=== PATIENT | male | born 1970 ===

== ENCOUNTER 2018-02-16 09:58 | Inpatient (IN) | payer OTHER ==
[2018-02-16] MEDS ORDERED: Sodium Chloride 0.9% 1,000 ML IV ONE (10:33)
[2018-02-16 11:01] LABS: BASO % 0.1 % (0.0-2.0); EOS # 0.2 K/uL (0.0-0.7); EOS % 1.3 % (0.0-4.0); HEMOGLOBIN 16.7 g/dL (12.0-18.0); LYMPH # 0.7 K/uL (1.0-4.3); LYMPH % 4.7 % (20.0-40.0); MEAN CELL VOLUME 87.7 fL (80.0-94.0); MEAN CORPUSCULAR HEMOGLOBIN 29.4 pg (27.0-31.0); MEAN CORPUSCULAR HGB CONC 33.5 g/dL (33.0-37.0); MEAN PLATELET VOLUME 7.5 fL (7.2-11.7); MONO # 1.1 K/uL (0.0-0.8); NEUT # 12.2 K/uL (1.8-7.0); NEUT % 85.9 % (50.0-75.0); PLATELET COUNT 353 K/uL (130-400); RBC 5.68 Mil/uL (4.40-5.90); RED CELL DISTRIBUTION WIDTH 13.7 % (11.5-14.5); WHITE BLOOD COUNT 14.3 K/uL (4.8-10.8)
[2018-02-16] MEDS ORDERED: Sodium Chloride 0.9% 1,000 ML ONE ×2 (11:03→17:23)
[2018-02-16] MEDS ORDERED: Iohexol 240 (50 ml) PO ONE (11:12)
[2018-02-16 11:13] LABS: INR 1.1; PROTHROMBIN TIME 11.5 SECONDS (9.7-12.2)
[2018-02-16 11:17] LABS: SQUAMOUS EPITHIAL 1 /hpf (0-5); URINE BACTERIA RARE (<OCC); URINE BILIRUBIN NEGATIVE (NEGATIVE); URINE BLOOD NEGATIVE (NEGATIVE); URINE CLARITY Hazy (Clear); URINE COLOR Amber (YELLOW); URINE GLUCOSE (UA) NORMAL (Normal); URINE LEUKOCYTE ESTERASE NEG Leu/uL (Negative); URINE PROTEIN NEGATIVE (NEGATIVE); URINE UROBILINOGEN NORMAL mg/dL (0.2-1.0)
--- NOTE | 2018-02-16 11:18 | C.PDOC ---
History Of Present Illness 47 year old male with a Hx of meckels diverticulum s/p multiple surgeries, last one in 2004, presents to the ER for evaluation of epigastric and RUQ pain for the past 3 days, associated with nausea and a few episodes of nonbilious/ nonbloody vomiting. Patient admits , similar symptoms in the past but states it usually resolves itself. Patient notes the pain subsided significantly this morning but still has nausea. Otherwise , pt denies fever, chills, recent antibiotic use, cough, CP, SOB, dyspnea, hematemesis, diarrhea, melena, hematoschezia, UTI symptoms. Ambulate to ED, not in any apparent distress. Time Seen by Provider: 02/16/18 10:08 Chief Complaint (Nursing): Abdominal Pain History Per: Patient History/Exam Limitations: no limitations Onset/Duration Of Symptoms: Days Current Symptoms Are (Timing): Still Present Location Of Pain/Discomfort: RUQ, Epigastric Radiation Of Pain To:: None Quality Of Discomfort: Unable To Describe Associated Symptoms: Nausea, Vomiting. denies: Fever, Chills, Urinary Symptoms Exacerbating Factors: None Alleviating Factors: None Recent travel outside of the [place]: No Past Medical History Reviewed: Historical Data, Nursing Documentation, Vital Signs Vital Signs: Last Vital Signs Temp 98.7 F 02/16/18 17:16 Pulse 97 H 02/16/18 17:16 Resp 18 02/16/18 17:16 BP 110/76 02/16/18 17:16 Pulse Ox 99 02/16/18 17:16 - Medical History PMH: HTN, Hypercholesterolemia Other PMH: Meckels Diverticulum Family History: States: No Known Family Hx - Social History Hx Alcohol Use: Yes Hx Substance Use: No - Immunization History Hx Tetanus Toxoid Vaccination: No Hx Influenza Vaccination: No Hx Pneumococcal Vaccination: No Review Of Systems Except As Marked, All Systems Reviewed And Found Negative. Constitutional: Negative for: Fever, Chills Eyes: Negative for: Vision Change ENT: Negative for: Throat Pain Cardiovascular: Negative for: Chest Pain, Palpitations Respiratory: Negative for: Cough, Shortness of Breath Gastrointestinal: Positive for: Nausea, Vomiting, Abdominal Pain Genitourinary: Negative for: Dysuria, Frequency, Hematuria Musculoskeletal: Negative for: Neck Pain, Back Pain Skin: Negative for: Rash Neurological: Negative for: Altered Mental Status, Dizziness Physical Exam - Physical Exam Appears: Well, Non-toxic Skin: Normal Color, Warm, Dry Head: Normacephalic Eye(s): bilateral: Normal Inspection Nose: No Flaring, No Discharge Oral Mucosa: Moist Tongue: Normal Appearing Lips: Normal Appearing Throat: No Erythema, No Drooling Cardiovascular: Rhythm Regular (tachy), No Murmur, No JVD Respiratory: No Accessory Muscle Use, No Rales, No Rhonchi, No Stridor, No Wheezing Gastrointestinal/Abdominal: Soft, Tenderness (Mild epigastric/RUQ), No Distention, No Guarding, No Rebound Back: No CVA Tenderness Extremity: Normal ROM, No Pedal Edema, No Swelling Neurological/Psych: Oriented x3, Normal Speech ED Course And Treatment - Laboratory Results Result Diagrams: 02/16/18 10:56 02/16/18 10:56 Lab Interpretation: Abnormal O2 Sat by Pulse Oximetry: 98 (Room air) Pulse Ox Interpretation: Normal - CT Scan/US CT abd/pelvis Other Rad Studies (CT/US): Radiology Report Reviewed CT/US Interpretation: IMPRESSION: Findings most likely represent small-bowel enteritis. Clinical correlation recommended. No evidence of acute mechanical bowel obstruction. Diverticulosis without radiographic evidence of acute diverticulitis. There appears to be a very small amount of of free fluid and infiltration changes within the pelvic mesentery. Multiple small to medium- sized lymph nodes seen in the upper abdomen as well as scattered throughout the mesentery. Rule out mesenteric adenitis. Moderate fatty hepatic infiltration. Probable hyperdense renal cyst. Renal ultrasound followup could confirm and exclude any solid components. Progress Note: CT abd/pel, blood work, and urinalysis ordered. Pepcid, toradol, zofran, and IV fluids administered. AFter blood work review, acute leukocytosis with bandemia recognized, pt remained tachy but afebrile. lactid acid 4.8. Code sepsis called. CT abd/pelvis review without significant abnormalities. Case dicussed with ED attending and admission arranged. Results review and discussed with pt, admisison recommend, pt agrees. Case discussed with and admission arranged. Critical Care Time - Critical Care Note Total Time (in mins): 40 Documented critical care: time excludes all time spent performing seperately billable procedures. Disposition - Disposition Disposition: HOSPITALIZED Disposition Time: 14:02 Condition: STABLE - Clinical Impression Clinical Impression: Enteritis, Bandemia, Meckel diverticulum, Sepsis - PA / LOANS OFFICER / Resident Statement MD/DO has reviewed & agrees with the documentation as recorded. - Scribe Statement The provider has reviewed the documentation as recorded by the Scribe Rashaun Benitez All medical record entries made by the Jesseniaibgenesis were at my direction and personally dictated by me. I have reviewed the chart and agree that the record accurately reflects my personal performance of the history, physical exam, medical decision making, and the department course for this patient. I have also personally directed, reviewed, and agree with the discharge instructions and disposition.
[2018-02-16] MEDS ORDERED: Iohexol 240 (50 ml) ONE (11:22)
[2018-02-16 11:24] LABS: ALB/GLOB RATIO 1.5 (1.0-2.1); ALBUMIN 4.8 g/dL (3.5-5.0); ALT/SGPT 48 U/L (21-72); AST/SGOT 33 U/L (17-59); BLOOD UREA NITROGEN 26 mg/dL (9-20); CALCIUM 9.9 mg/dl (8.6-10.4); GFR NON-AFRICAN AMERICAN > 60; LIPASE 55 U/L (23-300)
[2018-02-16 11:27] LABS: BANDS 25 % (0-2); LYMPHOCYTE 10 % (20-40); MONOCYTE 12 % (0-10); NEUTROPHIL 53 % (50-75); PLATELET ESTIMATE NORMAL (NORMAL); TOTAL CELLS COUNTED 100
[2018-02-16] MEDS ORDERED: Iodixanol 320 MG/ML 100 ML BOTTLE IV ONE (12:44)
--- NOTE | 2018-02-16 14:21 | CT ---
Date of service: 02/16/2018 PROCEDURE: CT Abdomen and Pelvis with contrast HISTORY: Vomiting with abdominal pain. History of Meckel's diverticulum COMPARISON: No prior study available comparison TECHNIQUE: Contrast dose: 100 cc Visipaque 320 Radiation dose: Total exam DLP = 335.42 mGy-cm. This CT exam was performed using one or more of the following dose reduction techniques: Automated exposure control, adjustment of the mA and/or kV according to patient size, and/or use of iterative reconstruction technique. FINDINGS: LOWER THORAX: Mild passive/dependent type atelectasis seen right posterior sulcus. There may be some minimal linear scarring change in the left lung base. No effusion or non basilar pneumothorax. Heart size within range of normal. Tiny hiatal hernia. LIVER: Liver exhibits normal size. Mild to moderate fatty hepatic infiltration. No obvious hepatic mass or collection. No gross intrahepatic biliary ductal dilatation. Portal and splenic veins opacified. What. No gross lesion or ductal dilatation. GALLBLADDER AND BILE DUCTS: No evidence of intraluminal gallbladder calculi PANCREAS: Unremarkable. No gross lesion or ductal dilatation. SPLEEN: Unremarkable. ADRENALS: No adrenal lesions KIDNEYS AND URETERS: . Kidneys demonstrate relatively symmetric nephrograms. No evidence of nephrolithiasis or hydronephrosis. There is a rounded low-attenuation lesion within the posteromedial cortex mid pole right kidney that exhibits Hounsfield units ranging from the upper teens through the low 30s. This probably represents a hyperdense cyst. Followup ultrasound could confirm and exclude any solid components. VASCULATURE: Unremarkable. No aortic aneurysm. BOWEL: The stomach is distended with oral contrast material and air. There are several on loops of minimally distended thick-walled small bowel consistent with a nonspecific enteritis. No evidence of acute mechanical small bowel obstruction with oral contrast material extending to the level of the distal descending colon. Scattered colonic diverticula are seen along the sigmoid and distal descending colon however no definitive radiographic evidence of acute diverticulitis. APPENDIX: Appendix is not seen consistent with this patient's history of appendectomy. PERITONEUM: There appears to be a very small amount of of free fluid and infiltration changes within the pelvic mesentery. Small fat containing umbilical hernia. LYMPH NODES: There are several small to medium-sized upper abdominal lymph nodes seen in the syed hepatis peripancreatic and adjacent to the celiac axis. . In addition, there are scattered small to medium-sized mesenteric lymph nodes. Rule out mesenteric adenitis. BLADDER: Urinary bladder is physiologically distended. No evidence of intraluminal urinary bladder calculi. REPRODUCTIVE: Unremarkable. BONES: No acute fracture. OTHER FINDINGS: None. IMPRESSION: Findings most likely represent small-bowel enteritis. Clinical correlation recommended. No evidence of acute mechanical bowel obstruction. Diverticulosis without radiographic evidence of acute diverticulitis. There appears to be a very small amount of of free fluid and infiltration changes within the pelvic mesentery. Multiple small to medium-sized lymph nodes seen in the upper abdomen as well as scattered throughout the mesentery. Rule out mesenteric adenitis Moderate fatty hepatic infiltration. Probable hyperdense renal cyst. Renal ultrasound followup could confirm and exclude any solid components.
[2018-02-16] MEDS ORDERED: Piperacillin/Tazobact 3.375 gm 100 ML IV STA (14:43)
[2018-02-16] MEDS ORDERED: Piperacillin/Tazobact 3.375 gm 100 ML IVPB ONE ×2 (15:27→20:39)
[2018-02-16] MEDS ORDERED: metroNIDAZOLE IV 500 mg/100 ml 500 MG/100 ML BAG ONE ×2 (15:28→21:54)
[2018-02-16] MEDS: Sodium Chloride 0.9% 1,000 ML IV SCH ×2 (16:06→17:25)
[2018-02-16] MEDS ORDERED: Dextrose 50% SYRINGE Inj (50 ml) IV PRN (17:57)
[2018-02-16] MEDS ORDERED: Glucagon Recombinant 1 mg Inj IM PRN (17:57)
--- NOTE | 2018-02-16 18:08 | CP.PCM.HP ---
<Norbert Villalba - Last Filed: 02/16/18 18:00> History of Present Illness - History of Present Illness History of Present Illness: PGY-[address] History and [address] Choi CC: Abdominal pain HPI: Patient is a 47y/o male with past medical history of hypertension, hyperlipidemia, prediabetes, meckel's diverticulum s/p ex lap with partial small bowel resection and simultaneous appendectomy who presents with abdominal pain that started last night. Patient also reports having back pain for the past 2 weeks that has worsened yesterday night, but states that this is not abdominal pain radiating to the back. The abdominal pain started last night before pt went to bed and kept him up all night. Pt's abdominal pain began in the epigastrium and this morning moved to RLQ. He denies fatty foods or change in diet. Pt does state that the pain seemed to be worse after eating, but persists despite food intake. Pain was initially rated 10/10, constant, and was not alleviated with the use of over the counter pain medication (pt does not know which OTC medication he took). Patient also reports sweating, nausea, and vomiting six times yesterday. Vomit was green, but nonbloody. He states that he has had similar pain in the past prior to ex lap surgery but this episode is the worst. Admits to nausea, vomiting, chills. Denies constipation, diarrhea, hematuria, dysuria, melena, hematochezia, headache, fevers, palpitations, shortness of breath. 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 Meds: Ramipril 10mg daily; Lovastatin 40mg daily Allergies: NKA PMD: Ignacio Code: Full Code Proxy: - Amber Millan Present on Admission - Present on Admission Any Indicators Present on Admission: No Review of Systems - Constitutional Constitutional: absent: Fatigue, Fever - EENT Eyes: absent: Blurred Vision, Change in Vision Nose/Mouth/Throat: absent: Nasal Congestion, Nasal Discharge - Cardiovascular Cardiovascular: absent: Chest Pain, Chest Pain at Rest, Dyspnea on Exertion, Leg Edema - Respiratory Respiratory: absent: Cough, Hemoptysis, Wheezing - Gastrointestinal Gastrointestinal: Abdominal Pain, Bloating, Diarrhea (+1 bout of watery nonbloody diarrhea this morning), Nausea, Vomiting. absent: Constipation, Cramping, Hematemesis, Hematochezia, Melena - Genitourinary Genitourinary: absent: Dysuria, Hematuria, Urinary Frequency, Urinary Hesitance - Musculoskeletal Musculoskeletal: Back Pain. absent: Muscle Weakness, Myalgias, Neck Pain, Radiating Pain into Limb - Neurological Neurological: absent: Abnormal Speech, Dizziness, Numbness, Headaches - Psychiatric Psychiatric: absent: Anxiety, Confusion, Depression - Endocrine Endocrine: absent: Polydipsia, Polyuria - Hematologic/Lymphatic Hematologic: absent: Easy Bleeding, Easy Bruising Past Patient History - Infectious Disease Hx of Infectious Diseases: None - Past Social History Smoking Status: Never Smoked - CARDIAC Hx Hypercholesterolemia: Yes Hx Hypertension: Yes - PSYCHIATRIC Hx Substance Use: No - SURGICAL HISTORY Hx Surgeries: Yes Other/Comment: meckels diverticulum - ANESTHESIA Hx Anesthesia: Yes Hx Anesthesia Reactions: No Hx Malignant Hyperthermia: No Meds Allergies/Adverse Reactions: Allergies Allergy/AdvReac Type Severity Reaction Status Date / Time No Known Allergies Allergy Verified 02/16/18 10:06 Physical Exam - Constitutional Appears: Well, Non-toxic, No Acute Distress - Head Exam Head Exam: ATRAUMATIC, NORMAL INSPECTION - Eye Exam Eye Exam: EOMI, Normal appearance Pupil Exam: NORMAL ACCOMODATION, PERRL - ENT Exam ENT Exam: Mucous Membranes Moist - Respiratory Exam Respiratory Exam: Clear to Auscultation Bilateral, NORMAL BREATHING PATTERN. absent: Accessory Muscle Use, Rales, Rhonchi, Wheezes - Cardiovascular Exam Cardiovascular Exam: REGULAR RHYTHM, +S1, +S2. absent: RRR, Rubs - GI/Abdominal Exam GI & Abdominal Exam: Distended (+mildly distended abdomen), Normal Bowel Sounds , Soft, Tenderness (+Diffuse abdominal tenderness, worst in RLQ). absent: Diminished Bowel Sounds, Firm, Guarding, Hyperactive Bowel Sounds, Hypoactive Bowel Sounds, Organomegaly, Rebound, Rigid - Extremities Exam Extremities exam: Positive for: normal inspection, pedal pulses present. Negative for: joint swelling, pedal edema, tenderness - Back Exam Back exam: absent: CVA tenderness (L), CVA tenderness (R) - Neurological Exam Neurological exam: Alert, CN II-XII Intact, Normal Gait, Oriented x3, Reflexes Normal - Psychiatric Exam Psychiatric exam: Normal Affect, Normal Mood - Skin Skin Exam: Dry, Intact, Normal Color, Warm Results - Vital Signs Recent Vital Signs: Last Vital Signs Temp 98.7 F 02/16/18 17:16 Pulse 97 H 02/16/18 17:16 Resp 18 02/16/18 17:16 BP 110/76 02/16/18 17:16 Pulse Ox 98 02/16/18 17:40 - Labs Result Diagrams: 02/16/18 10:56 02/16/18 10:56 Labs: Laboratory Results - last 24 hr 02/16/18 02/16/18 02/16/18 10:56 10:56 10:56 WBC 14.3 H RBC 5.68 Hgb 16.7 Hct 49.8 MCV 87.7 MCH 29.4 MCHC 33.5 RDW 13.7 Plt Count 353 MPV 7.5 Neut % (Auto) 85.9 H Lymph % (Auto) 4.7 L Gila % (Auto) 8.0 Eos % (Auto) 1.3 Baso % (Auto) 0.1 Neut # (Auto) 12.2 H Lymph # (Auto) 0.7 L Gila # (Auto) 1.1 H Eos # (Auto) 0.2 Baso # (Auto) 0.0 Neutrophils % (Manual) 53 Band Neutrophils % 25 H* Lymphocytes % (Manual) 10 L Monocytes % (Manual) 12 H Platelet Estimate Normal RBC Morphology Normal PT 11.5 INR 1.1 APTT 33 Sodium Potassium Chloride Carbon Dioxide Anion Gap BUN Creatinine Est GFR ( Amer) Est GFR (Non-Af Amer) Random Glucose Lactic Acid Calcium Total Bilirubin AST ALT Alkaline Phosphatase Total Protein Albumin Globulin Albumin/Globulin Ratio Lipase Urine Color Lesley Urine Clarity Hazy Urine pH 5.0 Ur Specific [place] 1.030 Urine Protein Negative Urine Glucose (UA) Normal Urine Ketones Negative Urine Blood Negative Urine Nitrate Negative Urine Bilirubin Negative Urine Urobilinogen Normal Ur Leukocyte Esterase Neg Urine WBC (Auto) 2 Urine RBC (Auto) 2 Ur Squamous Epith Cells 1 Urine Bacteria Rare Hyaline Casts 3-5 H 02/16/18 02/16/18 10:56 15:24 WBC RBC Hgb Hct MCV MCH MCHC RDW Plt Count MPV Neut % (Auto) Lymph % (Auto) Gila % (Auto) Eos % (Auto) Baso % (Auto) Neut # (Auto) Lymph # (Auto) Gila # (Auto) Eos # (Auto) Baso # (Auto) Neutrophils % (Manual) Band Neutrophils % Lymphocytes % (Manual) Monocytes % (Manual) Platelet Estimate RBC Morphology PT INR APTT Sodium 145 Potassium 5.0 Chloride 101 Carbon Dioxide 25 Anion Gap 24 H BUN 26 H Creatinine 1.0 Est GFR ( Amer) > 60 Est GFR (Non-Af Amer) > 60 Random Glucose 228 H Lactic Acid 4.8 H* Calcium 9.9 Total Bilirubin 1.0 AST 33 ALT 48 Alkaline Phosphatase 86 Total Protein 8.0 Albumin 4.8 Globulin 3.2 Albumin/Globulin Ratio 1.5 Lipase 55 Urine Color Urine Clarity Urine pH Ur Specific [place] Urine Protein Urine Glucose (UA) Urine Ketones Urine Blood Urine Nitrate Urine Bilirubin Urine Urobilinogen Ur Leukocyte Esterase Urine WBC (Auto) Urine RBC (Auto) Ur Squamous Epith Cells Urine Bacteria Hyaline Casts Assessment & Plan - Assessment and Plan (Free Text) Assessment: 1) Sepsis * Criteria: Tachycardia, leukocytosis, bandemia * Source: Small bowel Enteritis * Code sepsis called in ED - initial lactate 4.8 * Repeat VBG lactate to be drawn STAT at 18:24 * IV Flagyl and Zosyn given in ED * Blood cultures pending, urine cultures pending * UA - 3-5 hyaline cysts, no leuk esterase or nitrates * Procalcitonin - pending * ABx * Continued Flagyl 500mg IV Q8 * Continued Zosyn 3.375gm IV Q6 * ID Consulted - Dr. Tan. Help appreciated * 1L NS bolus given in ED; 100cc/hr maintenance NS 2) Small bowel enteritis: * CT Abd/Pelvis (02/16) - "Findings mostly represent small-bowel enteritis. Clinical correlation recommended. No evidence of acute mechanical bowel obstruction. Diverticuylosis without radiographic evidence of acute diverticulitis. There appears to be a very small amount of free fluid and infiltration changes within the pelvic mesentery. Multiple small to medium sized lymph nodes seen in the upper abdomen as well as scattered throughout the mesentery. Rule out mesenteric adenitis. Moderate fatty hepatic infiltration. Probable hyperdense renal cyst. Renal US followup could confirm and exclude any solid components." * IV antibiotics * Hx Meckels/mesenteric adenitis * GI (Dr. Jessica) and General Surgery (Dr. Jones) consulted - help appreciated * NPO 3) Hypertension * PO meds held * Monitor vital signs 4) Lipd disorder * Lipid panel tomorrow AM * NPO - PO meds held 5) Tachycardia * EKG * ML 2/2 pain 6) Ppx * DVT PPx: SCDs b/l (1 risk factor for age). PERC cannot be used to rule out PE due tachycardia * GI: Protonix 40mg IV daily * NS 100cc/hr * NPO * Changed to telemetry, given sepsis 7) Hyperglycemia * A1C tomorrow AM * Accuchecks QAC/HS * Hypoglycemia protocol initiated Assessment/Plan Discussed with Dr. Steph Villalba, PGY-1 <Elise Choi V - Last Filed: 02/16/18 20:37> Results - Vital Signs Recent Vital Signs: Last Vital Signs Temp 98.7 F 02/16/18 17:16 Pulse 91 H 02/16/18 19:27 Resp 20 02/16/18 19:27 BP 99/66 L 02/16/18 19:27 Pulse Ox 97 02/16/18 19:27 - Labs Result Diagrams: 02/16/18 10:56 02/16/18 10:56 Labs: Laboratory Results - last 24 hr 02/16/18 02/16/18 02/16/18 10:56 10:56 10:56 WBC 14.3 H RBC 5.68 Hgb 16.7 Hct 49.8 MCV 87.7 MCH 29.4 MCHC 33.5 RDW 13.7 Plt Count 353 MPV 7.5 Neut % (Auto) 85.9 H Lymph % (Auto) 4.7 L Gila % (Auto) 8.0 Eos % (Auto) 1.3 Baso % (Auto) 0.1 Neut # (Auto) 12.2 H Lymph # (Auto) 0.7 L Gila # (Auto) 1.1 H Eos # (Auto) 0.2 Baso # (Auto) 0.0 Neutrophils % (Manual) 53 Band Neutrophils % 25 H* Lymphocytes % (Manual) 10 L Monocytes % (Manual) 12 H Platelet Estimate Normal RBC Morphology Normal PT 11.5 INR 1.1 APTT 33 pO2 VBG pH VBG pCO2 VBG HCO3 VBG Total CO2 VBG O2 Sat (Calc) VBG Base Excess VBG Potassium Glucose Lactate Sodium Potassium Chloride Carbon Dioxide Anion Gap BUN Creatinine Est GFR ( Amer) Est GFR (Non-Af Amer) Random Glucose Lactic Acid Calcium Total Bilirubin AST ALT Alkaline Phosphatase Total Protein Albumin Globulin Albumin/Globulin Ratio Lipase Venous Blood Potassium Urine Color Lesley Urine Clarity Hazy Urine pH 5.0 Ur Specific [place] 1.030 Urine Protein Negative Urine Glucose (UA) Normal Urine Ketones Negative Urine Blood Negative Urine Nitrate Negative Urine Bilirubin Negative Urine Urobilinogen Normal Ur Leukocyte Esterase Neg Urine WBC (Auto) 2 Urine RBC (Auto) 2 Ur Squamous Epith Cells 1 Urine Bacteria Rare Hyaline Casts 3-5 H 02/16/18 02/16/18 02/16/18 10:56 15:24 18:52 WBC RBC Hgb Hct MCV MCH MCHC RDW Plt Count MPV Neut % (Auto) Lymph % (Auto) Gila % (Auto) Eos % (Auto) Baso % (Auto) Neut # (Auto) Lymph # (Auto) Gila # (Auto) Eos # (Auto) Baso # (Auto) Neutrophils % (Manual) Band Neutrophils % Lymphocytes % (Manual) Monocytes % (Manual) Platelet Estimate RBC Morphology PT INR APTT pO2 26 L VBG pH 7.31 L VBG pCO2 47 VBG HCO3 21.1 VBG Total CO2 25.1 VBG O2 Sat (Calc) 45.9 VBG Base Excess -2.9 L VBG Potassium 4.4 Glucose 119 H Lactate 3.1 H Sodium 145 138.0 Potassium 5.0 Chloride 101 109.0 H Carbon Dioxide 25 Anion Gap 24 H BUN 26 H Creatinine 1.0 Est GFR ( Amer) > 60 Est GFR (Non-Af Amer) > 60 Random Glucose 228 H Lactic Acid 4.8 H* Calcium 9.9 Total Bilirubin 1.0 AST 33 ALT 48 Alkaline Phosphatase 86 Total Protein 8.0 Albumin 4.8 Globulin 3.2 Albumin/Globulin Ratio 1.5 Lipase 55 Venous Blood Potassium 4.4 Urine Color Urine Clarity Urine pH Ur Specific [place] Urine Protein Urine Glucose (UA) Urine Ketones Urine Blood Urine Nitrate Urine Bilirubin Urine Urobilinogen Ur Leukocyte Esterase Urine WBC (Auto) Urine RBC (Auto) Ur Squamous Epith Cells Urine Bacteria Hyaline Casts Attending/Attestation - Attestation I have personally seen and examined this patient.: Yes I have fully participated in the care of the patient.: Yes I have reviewed all pertinent clinical information: Yes Notes (Text): patient seen, examined, and case discussed with medical staff services coordinator. Patient seen in [facility] bed 7a in the emergency room. patient was called code sepsis given elevated lactate acid. patient has elevated white count and tachycardia, patient reports prior hx of meckels' diverticulum underwent ex lap in 2004 reports has pain on and off since. Patient reports acute pain started last night, noted over the epigastric which is different from his prior abdominal pain. He also reports day prior he had two whiskey sours. patient has received IV abx, fluid bolus, repeat lactate acid order 3 hours from reported lactate acid. Will place NPO given small bowel enteritis. patient reports one episode of diarrhea last night. denies any bowel movement today. Will consult ID, GI, and general surgery. Will order stool studies to rule out infectious etiologies. CT scan noted for mesentric adenitis, renal cysts, upgraded to telemetry in light of code sepsis. Discussed admitting orders with day-time resident. Assessment/Plan 1) Sepsis Assessment/Plan * Criteria: Tachycardia, leukocytosis, bandemia * Source: Small bowel Enteritis * Code sepsis called in ED - initial lactate 4.8 * Repeat VBG lactate to be drawn STAT at 18:24 * IV Flagyl and Zosyn given in ED * Blood cultures pending, urine cultures pending * UA - 3-5 hyaline cysts, no leuk esterase or nitrates * Procalcitonin - pending * ABx * Continued Flagyl 500mg IV Q8H * Continued Zosyn 3.375gm IV Q6H * ID Consulted - Dr. Tan. Help appreciated * 1L NS bolus given in ED; 100cc/hr maintenance NS 2) Small bowel enteritis: Assessment/Plan * CT Abd/Pelvis (02/16) - "Findings mostly represent small-bowel enteritis. Clinical correlation recommended. No evidence of acute mechanical bowel obstruction. Diverticulosis without radiographic evidence of acute diverticulitis. There appears to be a very small amount of free fluid and infiltration changes within the pelvic mesentery. Multiple small to medium sized lymph nodes seen in the upper abdomen as well as scattered throughout the mesentery. Rule out mesenteric adenitis. Moderate fatty hepatic infiltration. Probable hyperdense renal cyst. Renal US followup could confirm and exclude any solid components." * IV antibiotics to cover for colitis * Hx Meckels/mesenteric adenitis * GI (Dr. Jessica) and General Surgery (Dr. 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 * GI: Protonix 40mg IV daily * NS 100cc/hr * NPO * Changed to telemetry, given sepsis
--- NOTE | 2018-02-16 18:38 | PCM.SEPTIC ---
<Norbert Villalba - Last Filed: 02/16/18 18:41> Sepsis Progress Note - Reassessment Type Date of Evaluation: 02/16/18 Time of Evaluation: 16:18 Reassessment Type: Non-invasive reassessment - Non Invasive Reassessment Were the most recent vital sign reviewed: Yes Vital Sign (Latest): Temp Pulse Resp BP Pulse Ox 98.7 F 97 H 18 110/76 98 02/16/18 17:16 02/16/18 17:16 02/16/18 17:16 02/16/18 17:16 02/16/18 17:40 Cardiovascular: Yes: Regular Rate, Rhythm, Chest Non Tender, Tachycardia. No: Edema, Murmur, Bradycardia, Irregularly Irregular Respiratory: Yes: Normal Breath Sounds. No: Accessory Muscle Use, Crackles, Rales, Rhonchi, Stridor, Wheezing, Respiratory Distress Capillary Refill: Normal (Less than 2 sec) Pulses: Normal Radial, Normal Dorsalis Pedis, Normal Posterior Tibialis Skin: Normal Color, Warm, Dry - Invasive Reassessment (complete 2 of 4) Was a Central Venous Pressure Measurement obtained within 6 Hours after the presentation of septic shock: No Was a central venous oxygen measurement obtained within 6 hours after the presentation of septic shock: No Was a bedside cardiovascular ultrasound performed within 6 hours after the presentation of septic shock: No Was a passive leg raise performed or was a fluid challenge performed within 6 hrs of the initial fluid bolus: No <Elise Choi V - Last Filed: 02/16/18 20:40> Sepsis Progress Note - Non Invasive Reassessment Vital Sign (Latest): Temp Pulse Resp BP Pulse Ox 98.7 F 91 H 20 99/66 L 97 02/16/18 17:16 02/16/18 19:27 02/16/18 19:27 02/16/18 19:27 02/16/18 19:27 Attending/Attestation - Attestation Notes (Text): Code sepsis called in ED given elevated lactate acid, leukocytosis, bandemia, tachycardia, suspected source enteritis. Received 2 iv abx per protocol Received IV bolus per protocol Repeat lactate acid order improved. ID consulted given code sepsis
[2018-02-16 18:56] LABS: VENOUS BLOOD GAS BASE EXCESS -2.9 mmol/L (0.0-2.0); VENOUS BLOOD GAS PCO2 47 mmHg (40-60); VENOUS BLOOD GAS PO2 26 mm/Hg (30-55); VENOUS BLOOD PH 7.31 (7.32-7.43)
[2018-02-16] MEDS: Piperacill/Tazo 3.375gm in Dex 3.375 GM/50 ML BAG IVPB SCH (20:39)
[2018-02-16] MEDS: metroNIDAZOLE IV 500 mg/100 ml 500 MG/100 ML BAG IVPB SCH (22:30)
--- NOTE | 2018-02-16 22:53 | CP.PCM.CON ---
<Abran Dawson - Last Filed: 02/17/18 01:54> History of Present Illness - History of Present Illness History of Present Illness: General Surgery Consult Note: Dr. Flaherty 47M with PMHx of HTN, Meckel's diverticulum, presents to [facility] ED with complaints of abdominal pain. Patient was a code sepsis. Patient states pain began yesterday. He reports he intially felt pain along epigastrium. Patient reports having ~8 bouts of non-bloody emesis. Reports having normal BM yesterday afternoon. Patient describes abdominal pain as cramping in nature also states pain waxes and wanes. Patient reports upon admission his pain was a 10/10 however at time of examination patient stated he felt much better and rated his pain as a 3/10. Patient denies chest pain, shortness of breath, headache/dizziness, nausea, diarrhea, dysuria. PMHx: HTN, Meckel's diverticulum PSHx: exploratory laparotomy (Meckel's) and appendectomy 2004 SocHx: Denies smoking, denies illicit drug use Allergies: NKDA Review of Systems - Review of Systems Review of Systems: 12 pt ROS unremarkable, except as stated in HPI Past Patient History - Infectious Disease Hx of Infectious Diseases: None - Past Social History Smoking Status: Never Smoked - CARDIAC Hx Hypercholesterolemia: Yes Hx Hypertension: Yes - PSYCHIATRIC Hx Substance Use: No - SURGICAL HISTORY Hx Surgeries: Yes Other/Comment: meckels diverticulum - ANESTHESIA Hx Anesthesia: Yes Hx Anesthesia Reactions: No Hx Malignant Hyperthermia: No Meds Allergies/Adverse Reactions: Allergies Allergy/AdvReac Type Severity Reaction Status Date / Time No Known Allergies Allergy Verified 02/16/18 10:06 - Medications Medications: Current Medications Dextrose (Dextrose 50% Inj) 0 ml IV STAT PRN; Protocol PRN Reason: Hypoglycemia Protocol Dextrose (Glutose 15) 0 gm PO ONCE PRN; Protocol PRN Reason: Hypoglycemia Protocol Glucagon (Glucagen Diagnostic Kit) 0 mg IM STAT PRN; Protocol PRN Reason: Hypoglycemia Protocol Sodium Chloride (Sodium Chloride 0.9%) 1,000 mls @ 100 mls/hr IV .Q10H [facility] Last Admin: 02/16/18 17:25 Dose: 100 mls/hr Metronidazole (Flagyl) 500 mg in 100 mls @ 100 mls/hr IVPB Q8H [facility] PRN Reason: Protocol Last Admin: 02/16/18 22:30 Dose: 100 mls/hr Piperacillin Sod/Tazobactam Sod (Zosyn 3.375 Gm Iv Premix) 3.375 gm in 50 mls @ 100 mls/hr IVPB Q6H [facility] PRN Reason: Protocol Last Admin: 02/16/18 20:39 Dose: 100 mls/hr Dextrose (Dextrose 5% In Water 1000 Ml) 1,000 mls @ 0 mls/hr IV .Q0M PRN; Protocol; Per Protocol PRN Reason: Hypoglycemia Protocol Ondansetron HCl (Zofran Inj) 4 mg IVP Q6 PRN PRN Reason: Nausea/Vomiting Pantoprazole Sodium (Protonix Inj) 40 mg IVP DAILY [facility] Physical Exam - Constitutional Appears: No Acute Distress - Head Exam Head Exam: NORMOCEPHALIC - Eye Exam Eye Exam: EOMI, Normal appearance - ENT Exam ENT Exam: Mucous Membranes Moist - Respiratory Exam Respiratory Exam: NORMAL BREATHING PATTERN - Cardiovascular Exam Cardiovascular Exam: +S1, +S2 - GI/Abdominal Exam GI & Abdominal Exam: Distended, Soft. absent: Firm, Guarding, Hernia, Rebound, Rigid, Tenderness Additional comments: +tympanitic - Neurological Exam Neurological exam: Alert, Oriented x3 - Psychiatric Exam Psychiatric exam: Normal Mood - Skin Skin Exam: Dry, Warm Results - Vital Signs Recent Vital Signs: Last Vital Signs Temp 98.7 F 02/16/18 17:16 Pulse 91 H 02/16/18 21:45 Resp 16 02/16/18 21:45 BP 106/65 02/16/18 21:45 Pulse Ox 100 02/16/18 21:45 - Labs Result Diagrams: 02/16/18 10:56 02/16/18 10:56 Labs: Laboratory Results - last 24 hr 02/16/18 02/16/18 02/16/18 10:56 10:56 10:56 WBC 14.3 H RBC 5.68 Hgb 16.7 Hct 49.8 MCV 87.7 MCH 29.4 MCHC 33.5 RDW 13.7 Plt Count 353 MPV 7.5 Neut % (Auto) 85.9 H Lymph % (Auto) 4.7 L [place] % (Auto) 8.0 Eos % (Auto) 1.3 Baso % (Auto) 0.1 Neut # (Auto) 12.2 H Lymph # (Auto) 0.7 L [place] # (Auto) 1.1 H Eos # (Auto) 0.2 Baso # (Auto) 0.0 Neutrophils % (Manual) 53 Band Neutrophils % 25 H* Lymphocytes % (Manual) 10 L Monocytes % (Manual) 12 H Platelet Estimate Normal RBC Morphology Normal PT 11.5 INR 1.1 APTT 33 pO2 VBG pH VBG pCO2 VBG HCO3 VBG Total CO2 VBG O2 Sat (Calc) VBG Base Excess VBG Potassium Glucose Lactate Sodium Potassium Chloride Carbon Dioxide Anion Gap BUN Creatinine Est GFR ( Amer) Est GFR (Non-Af Amer) Random Glucose Lactic Acid Calcium Total Bilirubin AST ALT Alkaline Phosphatase Total Protein Albumin Globulin Albumin/Globulin Ratio Lipase Procalcitonin Venous Blood Potassium Urine Color [place] Urine Clarity Hazy Urine pH 5.0 Ur Specific [place] 1.030 Urine Protein Negative Urine Glucose (UA) Normal Urine Ketones Negative Urine Blood Negative Urine Nitrate Negative Urine Bilirubin Negative Urine Urobilinogen Normal Ur Leukocyte Esterase Neg Urine WBC (Auto) 2 Urine RBC (Auto) 2 Ur Squamous Epith Cells 1 Urine Bacteria Rare Hyaline Casts 3-5 H 02/16/18 02/16/18 02/16/18 10:56 15:24 18:43 WBC RBC Hgb Hct MCV MCH MCHC RDW Plt Count MPV Neut % (Auto) Lymph % (Auto) [place] % (Auto) Eos % (Auto) Baso % (Auto) Neut # (Auto) Lymph # (Auto) [place] # (Auto) Eos # (Auto) Baso # (Auto) Neutrophils % (Manual) Band Neutrophils % Lymphocytes % (Manual) Monocytes % (Manual) Platelet Estimate RBC Morphology PT INR APTT pO2 VBG pH VBG pCO2 VBG HCO3 VBG Total CO2 VBG O2 Sat (Calc) VBG Base Excess VBG Potassium Glucose Lactate Sodium 145 Potassium 5.0 Chloride 101 Carbon Dioxide 25 Anion Gap 24 H BUN 26 H Creatinine 1.0 Est GFR ( Amer) > 60 Est GFR (Non-Af Amer) > 60 Random Glucose 228 H Lactic Acid 4.8 H* Calcium 9.9 Total Bilirubin 1.0 AST 33 ALT 48 Alkaline Phosphatase 86 Total Protein 8.0 Albumin 4.8 Globulin 3.2 Albumin/Globulin Ratio 1.5 Lipase 55 Procalcitonin 4.25 H Venous Blood Potassium Urine Color Urine Clarity Urine pH Ur Specific [place] Urine Protein Urine Glucose (UA) Urine Ketones Urine Blood Urine Nitrate Urine Bilirubin Urine Urobilinogen Ur Leukocyte Esterase Urine WBC (Auto) Urine RBC (Auto) Ur Squamous Epith Cells Urine Bacteria Hyaline Casts 02/16/18 18:52 WBC RBC Hgb Hct MCV MCH MCHC RDW Plt Count MPV Neut % (Auto) Lymph % (Auto) [place] % (Auto) Eos % (Auto) Baso % (Auto) Neut # (Auto) Lymph # (Auto) [place] # (Auto) Eos # (Auto) Baso # (Auto) Neutrophils % (Manual) Band Neutrophils % Lymphocytes % (Manual) Monocytes % (Manual) Platelet Estimate RBC Morphology PT INR APTT pO2 26 L VBG pH 7.31 L VBG pCO2 47 VBG HCO3 21.1 VBG Total CO2 25.1 VBG O2 Sat (Calc) 45.9 VBG Base Excess -2.9 L VBG Potassium 4.4 Glucose 119 H Lactate 3.1 H Sodium 138.0 Potassium Chloride 109.0 H Carbon Dioxide Anion Gap BUN Creatinine Est GFR ( Amer) Est GFR (Non-Af Amer) Random Glucose Lactic Acid Calcium Total Bilirubin AST ALT Alkaline Phosphatase Total Protein Albumin Globulin Albumin/Globulin Ratio Lipase Procalcitonin Venous Blood Potassium 4.4 Urine Color Urine Clarity Urine pH Ur Specific [place] Urine Protein Urine Glucose (UA) Urine Ketones Urine Blood Urine Nitrate Urine Bilirubin Urine Urobilinogen Ur Leukocyte Esterase Urine WBC (Auto) Urine RBC (Auto) Ur Squamous Epith Cells Urine Bacteria Hyaline Casts Assessment & Plan - Assessment and Plan (Free Text) Assessment: 47M with enteritis Plan: NPO IVF C/w ABx Analgesics prn Anti-emetics prn Serial abd exams No acute surgical intervention at this present time Further recs per Dr. Reynold Fritz PGY3 <Silvestre Flaherty - Last Filed: 02/22/18 13:37> Results - Vital Signs Recent Vital Signs: Last Vital Signs Temp 98.6 F 02/20/18 08:12 Pulse 82 02/20/18 08:12 Resp 20 02/20/18 08:12 BP 154/94 H 02/20/18 08:12 Pulse Ox 99 02/20/18 08:12 - Labs Result Diagrams: 02/20/18 06:18 02/20/18 06:18 Labs: Laboratory Results - last 24 hr 02/18/18 01:13 CSF Enterovirus Source Stool CSF Enterovirus RNA Qual Not detected Attending/Attestation - Attestation I have personally seen and examined this patient.: Yes I have fully participated in the care of the patient.: Yes I have reviewed all pertinent clinical information: Yes Notes (Text): Pt was seen and examined at bedside Agree with above note and assessment Pt with lower abdominal pain and diarrhea Abdomen : soft, tender in lower abdomen Labs and radiology reviewed Ass: Enteritis Plan : liquid diet IVF IV antibiotics Plan d.w pt in detail Risk and benefit explained in detail.
[2018-02-17] MEDS: Piperacill/Tazo 3.375gm in Dex 3.375 GM/50 ML BAG IVPB SCH ×4 (02:05→21:46)
[2018-02-17] MEDS: Sodium Chloride 0.9% 1,000 ML IV SCH ×3 (02:05→21:46)
[2018-02-17] MEDS: metroNIDAZOLE IV 500 mg/100 ml 500 MG/100 ML BAG IVPB SCH ×3 (06:00→22:31)
[2018-02-17 07:43] LABS: ALB/GLOB RATIO 1.4 (1.0-2.1); ALBUMIN 3.2 g/dL (3.5-5.0); ALT/SGPT 38 U/L (21-72); AST/SGOT 17 U/L (17-59); BLOOD UREA NITROGEN 17 mg/dL (9-20); CALCIUM 7.8 mg/dl (8.6-10.4); GFR NON-AFRICAN AMERICAN > 60; HDL CHOLESTEROL 26 mg/dL (30-70)
[2018-02-17 07:49] LABS: BASO % 0.2 % (0.0-2.0); EOS # 0.3 K/uL (0.0-0.7); EOS % 3.2 % (0.0-4.0); LYMPH # 1.8 K/uL (1.0-4.3); LYMPH % 20.5 % (20.0-40.0); MEAN CELL VOLUME 87.5 fL (80.0-94.0); MEAN CORPUSCULAR HGB CONC 34.3 g/dL (33.0-37.0); MEAN PLATELET VOLUME 7.5 fL (7.2-11.7); MONO # 0.8 K/uL (0.0-0.8); MONO % 8.9 % (0.0-10.0); NEUT % 67.2 % (50.0-75.0); NRBC % 0.1 % (0.0-2.0); RBC 4.11 Mil/uL (4.40-5.90); RED CELL DISTRIBUTION WIDTH 13.8 % (11.5-14.5); WHITE BLOOD COUNT 8.9 K/uL (4.8-10.8)
[2018-02-17 07:51] LABS: HEMOGLOBIN 12.3 g/dL (12.0-18.0)
[2018-02-17 07:53] LABS: LDL CHOLESTEROL 73 mg/dL (0-129)
--- NOTE | 2018-02-17 09:45 | RAD ---
Date of service: 02/16/2018 HISTORY: Code sepsis COMPARISON: No prior. FINDINGS: LUNGS: No active pulmonary disease. Slight elevation right hemidiaphragm possibly due to eventration. PLEURA: No significant pleural effusion identified, no pneumothorax apparent. CARDIOVASCULAR: Normal. OSSEOUS STRUCTURES: No significant abnormalities. VISUALIZED UPPER ABDOMEN: Normal. OTHER FINDINGS: None. IMPRESSION: No active disease.
--- NOTE | 2018-02-17 11:45 | CP.PCM.PN ---
<MateoAdele - Last Filed: 02/17/18 11:43> Subjective - Date & Time of Evaluation Date of Evaluation: 02/17/18 Time of Evaluation: 11:43 - Subjective Subjective: Surgery Pt seen and examined. Pt had BM yesterday. VOmiting resolved. Denies fever, CP, SOB. Pain controlled. Objective - Vital Signs/Intake and Output Vital Signs (last 24 hours): Temp Pulse Resp BP Pulse Ox 98.2 F 96 H 20 123/80 98 02/17/18 07:00 02/17/18 07:00 02/17/18 07:00 02/17/18 07:00 02/17/18 07:00 Intake and Output: 02/17/18 02/17/18 06:59 18:59 Intake Total 950 Balance 950 - Medications Medications: Current Medications Dextrose (Dextrose 50% Inj) 0 ml IV STAT PRN; Protocol PRN Reason: Hypoglycemia Protocol Dextrose (Glutose 15) 0 gm PO ONCE PRN; Protocol PRN Reason: Hypoglycemia Protocol Glucagon (Glucagen Diagnostic Kit) 0 mg IM STAT PRN; Protocol PRN Reason: Hypoglycemia Protocol Sodium Chloride (Sodium Chloride 0.9%) 1,000 mls @ 100 mls/hr IV .Q10H [facility] Last Admin: 02/17/18 02:05 Dose: 100 mls/hr Metronidazole (Flagyl) 500 mg in 100 mls @ 100 mls/hr IVPB Q8H [facility] PRN Reason: Protocol Last Admin: 02/17/18 06:00 Dose: 100 mls/hr Piperacillin Sod/Tazobactam Sod (Zosyn 3.375 Gm Iv Premix) 3.375 gm in 50 mls @ 100 mls/hr IVPB Q6H [facility] PRN Reason: Protocol Last Admin: 02/17/18 09:27 Dose: 100 mls/hr Dextrose (Dextrose 5% In Water 1000 Ml) 1,000 mls @ 0 mls/hr IV .Q0M PRN; Protocol; Per Protocol PRN Reason: Hypoglycemia Protocol Ketorolac Tromethamine (Toradol) 15 mg IVP Q6 PRN PRN Reason: Pain, severe (8-10) Ondansetron HCl (Zofran Inj) 4 mg IVP Q6 PRN PRN Reason: Nausea/Vomiting Pantoprazole Sodium (Protonix Inj) 40 mg IVP DAILY [facility] Last Admin: 02/17/18 10:27 Dose: 40 mg - Labs Labs: 02/17/18 06:52 02/17/18 06:52 PT 11.5 SECONDS (9.7-12.2) 02/16/18 10:56 INR 1.1 02/16/18 10:56 APTT 33 SECONDS (21-34) 02/16/18 10:56 - Constitutional Appears: No Acute Distress - Head Exam Head Exam: ATRAUMATIC, NORMAL INSPECTION, NORMOCEPHALIC - Eye Exam Eye Exam: EOMI, Normal appearance, PERRL Pupil Exam: NORMAL ACCOMODATION, PERRL - ENT Exam ENT Exam: Mucous Membranes Moist, Normal Exam - Neck Exam Neck Exam: Full ROM, Normal Inspection. absent: Lymphadenopathy - Respiratory Exam Respiratory Exam: NORMAL BREATHING PATTERN - Cardiovascular Exam Cardiovascular Exam: REGULAR RHYTHM, +S1, +S2. absent: Murmur - GI/Abdominal Exam GI & Abdominal Exam: Soft. absent: Distended, Firm, Guarding, Rigid, Tenderness - Extremities Exam Extremities Exam: Full ROM, Normal Capillary Refill, Normal Inspection. absent : Joint Swelling, Pedal Edema - Back Exam Back Exam: NORMAL INSPECTION - Neurological Exam Neurological Exam: Alert, Awake, CN II-XII Intact, Normal Gait, Oriented x3 - Psychiatric Exam Psychiatric exam: Normal Affect, Normal Mood - Skin Skin Exam: Dry, Intact, Normal Color, Warm Assessment and Plan - Assessment and Plan (Free Text) Assessment: 47M with enteritis Plan: CLD Advance diet as tolerated IVF C/w ABx Analgesics prn Anti-emetics prn Serial abd exams No acute surgical intervention at this present time Further recs per Dr. Flaherty <Silvestre Flaherty - Last Filed: 02/22/18 13:45> Objective - Vital Signs/Intake and Output Vital Signs (last 24 hours): Temp Pulse Resp BP Pulse Ox 98.6 F 82 20 154/94 H 99 02/20/18 08:12 02/20/18 08:12 02/20/18 08:12 02/20/18 08:12 02/20/18 08:12 - Labs Labs: 02/20/18 06:18 02/20/18 06:18 PT 11.5 SECONDS (9.7-12.2) 02/16/18 10:56 INR 1.1 02/16/18 10:56 APTT 33 SECONDS (21-34) 02/16/18 10:56 Attending/Attestation - Attestation I have personally seen and examined this patient.: Yes I have fully participated in the care of the patient.: Yes I have reviewed all pertinent clinical information, including history, physical exam and plan: Yes Notes (Text): Pt was seen and examined at bedside Agree with above note and assessment Pt is improving clinically C.w IV antibiotics No general surgery intervention required at present f.u as out pt c.w current mx Plan d.w pt in detail Risk and benefit explained in detail.
--- NOTE | 2018-02-17 12:15 | CP.PCM.CON ---
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 Meds: Ramipril 10mg daily; Lovastatin 40mg daily Allergies: NKA Review of Systems - Constitutional Constitutional: As Per HPI - EENT Eyes: absent: As Per HPI, Blind Spots, Blurred Vision, Change in Vision, Decreased Night Vision, Diplopia, Discharge, Dry Eye, Exophthalmos, Floaters, Irritation, Itchy Eyes, Loss of Peripheral Vision, Pain, Photophobia, Requires Corrective Lenses, Sees Flashes, Spots in Vision, Tunnel Vision, Other Visual Disturbances, Loss of Vision, Other Ears: absent: As Per HPI, Decreased Hearing, Ear Discharge, Ear Pain, Tinnitus, Abnormal Hearing, Disequilibrium, Dizziness, Other Nose/Mouth/Throat: absent: As Per HPI, Epistaxis, Nasal Congestion, Nasal Discharge, Nasal Obstruction, Nasal Trauma, Nose Pain, Post Nasal Drip, Sinus Pain, Sinus Pressure, Bleeding Gums, Change in Voice, Dental Pain, Dry Mouth, Dysphagia, Halitosis, Hoarsness, Lip Swelling, Mouth Lesions, Mouth Pain, Odynophagia, Sore Throat, Throat Swelling, Tongue Swelling, Facial Pain, Neck Pain, Neck Mass, Other - Cardiovascular Cardiovascular: absent: As Per HPI, Acrocyanosis, Chest Pain, Chest Pain at Rest , Chest Pain with Activity, Claudication, Diaphoresis, Dyspnea, Dyspnea on Exertion, Edema, Irregular Heart Rhythm, Pain Radiating to Arm/Neck/Jaw, Leg Edema, Leg Ulcers, Lightheadedness, Orthopnea, Palpitations, Paroxysmal Nocturnal Dyspnea, Pedal Edema, Radiating Pain, Rapid Heart Rate, Slow Heart Rate, Syncope, Other - Respiratory Respiratory: absent: As Per HPI, Cough, Dyspnea, Hemoptysis, Dyspnea on Exertion , Wheezing, Snoring, Stridor, Pain on Inspiration, Chest Congestion, Excessive Mucous Production, Change in Mucous Color, Pain with Coughing, Other - Gastrointestinal Gastrointestinal: As Per HPI - Genitourinary Genitourinary: absent: As Per HPI, Change in Urinary Stream, Difficulty Urinating, Dysuria, Flank Pain, Hematuria, Pyuria, Nocturia, Urinary Incontinence, Urinary Frequency, Urinary Hesitance, Urinary Urgency, Voiding Freq/Small Amts, Freq UTI, Hx Renal/Bladder Calculi, Hx /Renal Surgery, Bladder Distension, Other - Musculoskeletal Musculoskeletal: absent: As Per HPI, Abnormal Gait, Arthralgias, Atrophy, Back Pain, Deformity, Joint Swelling, Limited Range of Motion, Loss of Height, Muscle Cramps, Muscle Weakness, Myalgias, Neck Pain, Numbness, Radiating Pain into Limb, Stiffness, Tingling, Other - Integumentary Integumentary: absent: As Per HPI, Acne, Alopecia, Bleeding Lesions, Change in Hair, Change in Nails, Change in Pigmentation, Changing Lesions, Dry Skin, Erythema, Furuncle, Hirsutism, Lesions, New Lesions, Non-Healing Lesions, Photosensitivity, Pruritus, Rash, Skin Pain, Skin Ulcer, Sores, Striae, Swelling , Unusual Bruising, Wounds, Jaundice, Other - Neurological Neurological: absent: As Per HPI, Abnormal Gait, Abnormal Hearing, Abnormal Movements, Abnormal Speech, Behavioral Changes, Burning Sensations, Confusion, Convulsions, Disequilibrium, Dizziness, Numbness, Focal Weakness, Frequent Falls , Headaches, Lack of Coordination, Loss of Vision, Memory Loss, Paresthesias, Radicular Pain, Restless Legs, Sensory Deficit, Syncope, Tingling, Tremor, Vertigo, Weakness, Other Visual Disturbances, Other - Psychiatric Psychiatric: absent: As Per HPI, Abnormal Sleep Pattern, Anhedonia, Anxiety, Auditory Hallucinations, Behavioral Changes, Change in Appetite, Change in Libido, Confusion, Depression, Difficulty Concentrating, Hallucinations, Homicidal Ideation, Hopelessness, Irritability, Memory Loss, Mood Swings, Panic Attacks, Paranoia, Suicidal Ideation, Visual Hallucinations, Tactile Hallucinations, Other - Endocrine Endocrine: absent: As Per HPI, Change in Body Appearance, Change in Libido, Cold Intolorance, Deepening of Voice, Excessive Sweating, Fatigue, Flushing, Heat Intolorance, Increase in Ring/Shoe/Hat Size, Palpitations, Polydipsia, Polyphagia, Polyuria, Other - Hematologic/Lymphatic Hematologic: absent: As Per HPI, Easy Bleeding, Easy Bruising, Lymphadenopathy, Other Past Patient History - Infectious Disease Hx of Infectious Diseases: None - Past Medical History & Family History Past Medical History?: Yes - Past Social History Smoking Status: Never Smoked - CARDIAC Hx Hypercholesterolemia: Yes Hx Hypertension: Yes - PULMONARY Hx Respiratory Disorders: No - NEUROLOGICAL Hx Neurological Disorder: No - HEENT Hx HEENT Problems: No - RENAL Hx Chronic Kidney Disease: No - ENDOCRINE/METABOLIC Hx Endocrine Disorders: No - HEMATOLOGICAL/ONCOLOGICAL Hx Blood Disorders: No - INTEGUMENTARY Hx Dermatological Problems: No - MUSCULOSKELETAL/RHEUMATOLOGICAL Hx Musculoskeletal Disorders: No Hx Falls: No - GASTROINTESTINAL Hx Gastrointestinal Disorders: Yes Other/Comment: meckels diverticulum - GENITOURINARY/GYNECOLOGICAL Hx Genitourinary Disorders: No - PSYCHIATRIC Hx Substance Use: No - SURGICAL HISTORY Hx Surgeries: Yes Other/Comment: meckels diverticulum - ANESTHESIA Hx Anesthesia: Yes Hx Anesthesia Reactions: No Hx Malignant Hyperthermia: No Meds Allergies/Adverse Reactions: Allergies Allergy/AdvReac Type Severity Reaction Status Date / Time No Known Allergies Allergy Verified 02/16/18 10:06 - Medications Medications: Current Medications Dextrose (Dextrose 50% Inj) 0 ml IV STAT PRN; Protocol PRN Reason: Hypoglycemia Protocol Dextrose (Glutose 15) 0 gm PO ONCE PRN; Protocol PRN Reason: Hypoglycemia Protocol Glucagon (Glucagen Diagnostic Kit) 0 mg IM STAT PRN; Protocol PRN Reason: Hypoglycemia Protocol Sodium Chloride (Sodium Chloride 0.9%) 1,000 mls @ 100 mls/hr IV .Q10H [facility] Last Admin: 02/17/18 12:03 Dose: Not Given Metronidazole (Flagyl) 500 mg in 100 mls @ 100 mls/hr IVPB Q8H [facility] PRN Reason: Protocol Last Admin: 02/17/18 06:00 Dose: 100 mls/hr Piperacillin Sod/Tazobactam Sod (Zosyn 3.375 Gm Iv Premix) 3.375 gm in 50 mls @ 100 mls/hr IVPB Q6H [facility] PRN Reason: Protocol Last Admin: 02/17/18 09:27 Dose: 100 mls/hr Dextrose (Dextrose 5% In Water 1000 Ml) 1,000 mls @ 0 mls/hr IV .Q0M PRN; Protocol; Per Protocol PRN Reason: Hypoglycemia Protocol Ketorolac Tromethamine (Toradol) 15 mg IVP Q6 PRN PRN Reason: Pain, severe (8-10) Ondansetron HCl (Zofran Inj) 4 mg IVP Q6 PRN PRN Reason: Nausea/Vomiting Pantoprazole Sodium (Protonix Inj) 40 mg IVP DAILY [facility] Last Admin: 02/17/18 10:27 Dose: 40 mg Physical Exam - Constitutional Appears: Non-toxic, Chronically Ill - Head Exam Head Exam: NORMOCEPHALIC - Eye Exam Eye Exam: PERRL - ENT Exam ENT Exam: Mucous Membranes Dry - Neck Exam Neck exam: Negative for: Lymphadenopathy - Respiratory Exam Respiratory Exam: Decreased Breath Sounds, Clear to Auscultation Bilateral - Cardiovascular Exam Cardiovascular Exam: REGULAR RHYTHM, +S1, +S2 - GI/Abdominal Exam GI & Abdominal Exam: Diminished Bowel Sounds, Soft. absent: Tenderness - Rectal Exam Rectal Exam: Deferred - Exam Exam: NORMAL INSPECTION - Extremities Exam Extremities exam: Positive for: pedal pulses present. Negative for: calf tenderness, pedal edema, tenderness - Back Exam Back exam: absent: CVA tenderness (L), CVA tenderness (R), paraspinal tenderness - Neurological Exam Neurological exam: Alert, CN II-XII Intact, Oriented x3, Reflexes Normal - Psychiatric Exam Psychiatric exam: Normal Mood - Skin Skin Exam: Dry, Intact Results - Vital Signs Recent Vital Signs: Last Vital Signs Temp 98.2 F 02/17/18 07:00 Pulse 96 H 02/17/18 07:00 Resp 20 02/17/18 07:00 BP 123/80 02/17/18 07:00 Pulse Ox 98 02/17/18 07:00 - Labs Result Diagrams: 02/17/18 06:52 02/17/18 06:52 Labs: Laboratory Results - last 24 hr 02/16/18 02/16/18 02/16/18 15:24 18:43 18:52 WBC RBC Hgb Hct MCV MCH MCHC RDW Plt Count MPV Neut % (Auto) Lymph % (Auto) Sutter % (Auto) Eos % (Auto) Baso % (Auto) Neut # (Auto) Lymph # (Auto) Sutter # (Auto) Eos # (Auto) Baso # (Auto) pO2 26 L VBG pH 7.31 L VBG pCO2 47 VBG HCO3 21.1 VBG Total CO2 25.1 VBG O2 Sat (Calc) 45.9 VBG Base Excess -2.9 L VBG Potassium 4.4 Sodium 138.0 Chloride 109.0 H Glucose 119 H Lactate 3.1 H Potassium Carbon Dioxide Anion Gap BUN Creatinine Est GFR ( Amer) Est GFR (Non-Af Amer) POC Glucose (mg/dL) Random Glucose Hemoglobin A1c Lactic Acid 4.8 H* Calcium Total Bilirubin AST ALT Alkaline Phosphatase Total Protein Albumin Globulin Albumin/Globulin Ratio Triglycerides Cholesterol LDL Cholesterol Direct HDL Cholesterol Procalcitonin 4.25 H Venous Blood Potassium 4.4 02/17/18 02/17/18 02/17/18 00:10 06:03 06:52 WBC 8.9 RBC 4.11 L Hgb 12.3 D Hct 36.0 MCV 87.5 MCH 30.0 MCHC 34.3 RDW 13.8 Plt Count 269 MPV 7.5 Neut % (Auto) 67.2 Lymph % (Auto) 20.5 Sutter % (Auto) 8.9 Eos % (Auto) 3.2 Baso % (Auto) 0.2 Neut # (Auto) 6.0 Lymph # (Auto) 1.8 Sutter # (Auto) 0.8 Eos # (Auto) 0.3 Baso # (Auto) 0.0 pO2 VBG pH VBG pCO2 VBG HCO3 VBG Total CO2 VBG O2 Sat (Calc) VBG Base Excess VBG Potassium Sodium Chloride Glucose Lactate Potassium Carbon Dioxide Anion Gap BUN Creatinine Est GFR ( Amer) Est GFR (Non-Af Amer) POC Glucose (mg/dL) 110 115 H Random Glucose Hemoglobin A1c Lactic Acid Calcium Total Bilirubin AST ALT Alkaline Phosphatase Total Protein Albumin Globulin Albumin/Globulin Ratio Triglycerides Cholesterol LDL Cholesterol Direct HDL Cholesterol Procalcitonin Venous Blood Potassium 02/17/18 02/17/18 02/17/18 06:52 06:52 06:52 WBC RBC Hgb Hct MCV MCH MCHC RDW Plt Count MPV Neut % (Auto) Lymph % (Auto) Sutter % (Auto) Eos % (Auto) Baso % (Auto) Neut # (Auto) Lymph # (Auto) Sutter # (Auto) Eos # (Auto) Baso # (Auto) pO2 VBG pH VBG pCO2 VBG HCO3 VBG Total CO2 VBG O2 Sat (Calc) VBG Base Excess VBG Potassium Sodium 140 Chloride 105 Glucose Lactate Potassium 4.3 Carbon Dioxide 25 Anion Gap 15 BUN 17 Creatinine 0.9 Est GFR ( Amer) > 60 Est GFR (Non-Af Amer) > 60 POC Glucose (mg/dL) Random Glucose 115 H Hemoglobin A1c 5.9 Lactic Acid 1.2 Calcium 7.8 L Total Bilirubin 0.9 AST 17 D ALT 38 Alkaline Phosphatase 53 Total Protein 5.4 L Albumin 3.2 L D Globulin 2.2 Albumin/Globulin Ratio 1.4 Triglycerides 180 H Cholesterol 132 LDL Cholesterol Direct 73 HDL Cholesterol 26 L Procalcitonin Venous Blood Potassium 02/17/18 11:04 WBC RBC Hgb Hct MCV MCH MCHC RDW Plt Count MPV Neut % (Auto) Lymph % (Auto) Sutter % (Auto) Eos % (Auto) Baso % (Auto) Neut # (Auto) Lymph # (Auto) Sutter # (Auto) Eos # (Auto) Baso # (Auto) pO2 VBG pH VBG pCO2 VBG HCO3 VBG Total CO2 VBG O2 Sat (Calc) VBG Base Excess VBG Potassium Sodium Chloride Glucose Lactate Potassium Carbon Dioxide Anion Gap BUN Creatinine Est GFR ( Amer) Est GFR (Non-Af Amer) POC Glucose (mg/dL) 163 H Random Glucose Hemoglobin A1c Lactic Acid Calcium Total Bilirubin AST ALT Alkaline Phosphatase Total Protein Albumin Globulin Albumin/Globulin Ratio Triglycerides Cholesterol LDL Cholesterol Direct HDL Cholesterol Procalcitonin Venous Blood Potassium Assessment & Plan (1) Bandemia Status: Acute (2) Enteritis Status: Acute (3) Meckel diverticulum Status: Acute (4) Sepsis Status: Acute - Assessment and Plan (Free Text) Assessment: r/o viral vs bacterial infection await cultures blood/ stool needs GI eval
--- NOTE | 2018-02-17 15:29 | CP.PCM.PN ---
<Norbert Villalba - Last Filed: 02/17/18 15:57> Subjective - Date & Time of Evaluation Date of Evaluation: 02/17/18 Time of Evaluation: 15:22 - Subjective Subjective: PGY-[address] Choi Patient seen and examined at bedside. Pt states his abdominal pain is much improved, to a 1/10. The pain is still located mostly in his RLQ. Pt has been advanced to clear liquids per surgery. Explained to patient that he will most likely not require surgery. Will continue antibiotics and continue to assess clinically. Pt did have one episode of watery diarrhea yesterday, has not vomited today. Pt denies any fevers, chest pain, chills, headache, dizziness. Objective - Vital Signs/Intake and Output Vital Signs (last 24 hours): Temp Pulse Resp BP Pulse Ox 98.2 F 96 H 20 123/80 98 02/17/18 07:00 02/17/18 07:00 02/17/18 07:00 02/17/18 07:00 02/17/18 07:00 Intake and Output: 02/17/18 02/17/18 06:59 18:59 Intake Total 950 Balance 950 - Medications Medications: Current Medications Dextrose (Dextrose 50% Inj) 0 ml IV STAT PRN; Protocol PRN Reason: Hypoglycemia Protocol Dextrose (Glutose 15) 0 gm PO ONCE PRN; Protocol PRN Reason: Hypoglycemia Protocol Glucagon (Glucagen Diagnostic Kit) 0 mg IM STAT PRN; Protocol PRN Reason: Hypoglycemia Protocol Sodium Chloride (Sodium Chloride 0.9%) 1,000 mls @ 100 mls/hr IV .Q10H [facility] Last Admin: 02/17/18 12:03 Dose: Not Given Metronidazole (Flagyl) 500 mg in 100 mls @ 100 mls/hr IVPB Q8H [facility] PRN Reason: Protocol Last Admin: 02/17/18 14:35 Dose: 100 mls/hr Piperacillin Sod/Tazobactam Sod (Zosyn 3.375 Gm Iv Premix) 3.375 gm in 50 mls @ 100 mls/hr IVPB Q6H [facility] PRN Reason: Protocol Last Admin: 02/17/18 09:27 Dose: 100 mls/hr Dextrose (Dextrose 5% In Water 1000 Ml) 1,000 mls @ 0 mls/hr IV .Q0M PRN; Protocol; Per Protocol PRN Reason: Hypoglycemia Protocol Ketorolac Tromethamine (Toradol) 15 mg IVP Q6 PRN PRN Reason: Pain, severe (8-10) Ondansetron HCl (Zofran Inj) 4 mg IVP Q6 PRN PRN Reason: Nausea/Vomiting Pantoprazole Sodium (Protonix Inj) 40 mg IVP DAILY [facility] Last Admin: 02/17/18 10:27 Dose: 40 mg - Labs Labs: 02/17/18 06:52 02/17/18 06:52 PT 11.5 SECONDS (9.7-12.2) 02/16/18 10:56 INR 1.1 02/16/18 10:56 APTT 33 SECONDS (21-34) 02/16/18 10:56 - Head Exam Head Exam: ATRAUMATIC, NORMAL INSPECTION - Eye Exam Eye Exam: EOMI, Normal appearance Pupil Exam: NORMAL ACCOMODATION - ENT Exam ENT Exam: Mucous Membranes Moist - Respiratory Exam Respiratory Exam: Clear to Ausculation Bilateral, NORMAL BREATHING PATTERN. absent: Rales, Wheezes - GI/Abdominal Exam GI & Abdominal Exam: Soft, Tenderness (+mild RLQ tenderness to palpation), Normal Bowel Sounds - Extremities Exam Extremities Exam: Full ROM, Normal Inspection. absent: Pedal Edema - Neurological Exam Neurological Exam: Alert, Awake, CN II-XII Intact, Normal Gait, Oriented x3 - Psychiatric Exam Psychiatric exam: Normal Affect, Normal Mood - Skin Skin Exam: Dry, Intact, Normal Color, Warm Assessment and Plan - Assessment and Plan (Free Text) Assessment: 1) Sepsis Assessment/Plan * Criteria: Tachycardia, leukocytosis, bandemia * Source: Small bowel enteritis * Code sepsis called in ED - initial lactate 4.8 * Repeat VBG lactate to be drawn STAT at 18:24 * IV Flagyl and Zosyn given in ED * ID Consulted - Dr. Tan. Help appreciated * r/o salmonella, shigella, yersinia * r/o viral vs bacterial infection * Awaiting GI consult * GI consulted, Dr. Jessica - Awaiting recs * Surgery consulted, Dr. Flaherty. Help appreciated * Blood cultures - No growth at 24 hours * Urine cultures pending * UA - 3-5 hyaline cysts, no leuk esterase or nitrates * Procalcitonin - pending * ABx * Continued Flagyl 500mg IV Q8H * Continued Zosyn 3.375gm IV Q6H * 1L NS bolus given in ED; 100cc/hr maintenance NS * CXR (02/16) - No evidence of active pulmonary disease * Lactate - Normalized * 4.8 --> 3.1 --> 1.2 (today) * White count - resolved * 14.3 --> 8.9 * Diet advanced to clear liquids 2) Small bowel enteritis: Assessment/Plan * CT Abd/Pelvis (02/16) - "Findings mostly represent small-bowel enteritis. Clinical correlation recommended. No evidence of acute mechanical bowel obstruction. Diverticulosis without radiographic evidence of acute diverticulitis. There appears to be a very small amount of free fluid and infiltration changes within the pelvic mesentery. Multiple small to medium sized lymph nodes seen in the upper abdomen as well as scattered throughout the mesentery. Rule out mesenteric adenitis. Moderate fatty hepatic infiltration. Probable hyperdense renal cyst. Renal US followup could confirm and exclude any solid components." * IV antibiotics to cover for colitis * Hx Meckels/mesenteric adenitis * GI (Dr. Jessica) and General Surgery (Dr. Flaherty) consulted - help appreciated juvenile probation officer * Advanced to clear liquid diet diet today per surgery * Per surgery, Dr. Flaherty * Not an acute surgical case at this time * Continue IV antibiotics * Analgesics prn - Toradol 15mg IVP prn for moderate to severe pain * Serial abdominal exams * IV fluids - NS continued at 100cc/hr * Blood cultures - No growth at 24 hours * Stool leukocytes negative * Stool cultures pending 3) Hypertension Assessment/Plan * PO antihypertensive meds held * Monitor vital signs * on IV fluids 4) Lipd disorder Assessment/Plan * Lipid panel tomorrow AM * Clear liquids - PO statin meds held 5) Tachycardia Assessment/Plan * EKG 02/16 - NSR, No ST or T changes, normal EKG * Suspect tachycardia secondary to pain secondary to small bowel enteritis 6) Hyperglycemia * A1C 5.9 - Counseled on importance of maintaining a healthy balanced diet * Accuchecks Q6H * Hypoglycemia protocol initiated 7) Ppx * DVT PPx: SCDs b/l (1 risk factor for age). * GI: Protonix 40mg IV daily * NS 100cc/hr * NPO <Elise Choi V - Last Filed: 02/17/18 16:47> Objective - Vital Signs/Intake and Output Vital Signs (last 24 hours): Temp Pulse Resp BP Pulse Ox 98.2 F 96 H 20 123/80 98 02/17/18 07:00 02/17/18 07:00 02/17/18 07:00 02/17/18 07:00 02/17/18 07:00 Intake and Output: 02/17/18 02/17/18 06:59 18:59 Intake Total 950 Balance 950 - Medications Medications: Current Medications Dextrose (Dextrose 50% Inj) 0 ml IV STAT PRN; Protocol PRN Reason: Hypoglycemia Protocol Dextrose (Glutose 15) 0 gm PO ONCE PRN; Protocol PRN Reason: Hypoglycemia Protocol Glucagon (Glucagen Diagnostic Kit) 0 mg IM STAT PRN; Protocol PRN Reason: Hypoglycemia Protocol Sodium Chloride (Sodium Chloride 0.9%) 1,000 mls @ 100 mls/hr IV .Q10H [facility] Last Admin: 02/17/18 12:03 Dose: Not Given Metronidazole (Flagyl) 500 mg in 100 mls @ 100 mls/hr IVPB Q8H [facility] PRN Reason: Protocol Last Admin: 02/17/18 14:35 Dose: 100 mls/hr Piperacillin Sod/Tazobactam Sod (Zosyn 3.375 Gm Iv Premix) 3.375 gm in 50 mls @ 100 mls/hr IVPB Q6H [facility] PRN Reason: Protocol Last Admin: 02/17/18 15:29 Dose: 100 mls/hr Dextrose (Dextrose 5% In Water 1000 Ml) 1,000 mls @ 0 mls/hr IV .Q0M PRN; Protocol; Per Protocol PRN Reason: Hypoglycemia Protocol Ketorolac Tromethamine (Toradol) 15 mg IVP Q6 PRN PRN Reason: Pain, severe (8-10) Stop: 02/19/18 11:23 Ondansetron HCl (Zofran Inj) 4 mg IVP Q6 PRN PRN Reason: Nausea/Vomiting Pantoprazole Sodium (Protonix Inj) 40 mg IVP DAILY [facility] Last Admin: 02/17/18 10:27 Dose: 40 mg - Labs Labs: 02/17/18 06:52 02/17/18 06:52 PT 11.5 SECONDS (9.7-12.2) 02/16/18 10:56 INR 1.1 02/16/18 10:56 APTT 33 SECONDS (21-34) 02/16/18 10:56 Attending/Attestation - Attestation I have personally seen and examined this patient.: Yes I have fully participated in the care of the patient.: Yes I have reviewed all pertinent clinical information, including history, physical exam and plan: Yes Notes (Text): Patient seen, examined and case discussed with medical staff services coordinator. Patient seen this morning with at bedside. patient reports abdominal pain about 2/10 on pain scale only noticeable when he presses. Patient seen and evaluated by ID, repeat blood cultures ordered Afebrile, white count has normalized, lactic acid normalized Patient seen and evaluated by surgery, no intervention, diet advanced per surgery D/c telemetry since lactic acidosis has normalized, vitals remain stable Will continue broad spectrum antibiotics until cultures results Assessment/Plan 1) Sepsis Assessment/Plan * ID Consulted - Dr. Tan. Help appreciated * Criteria: Tachycardia, leukocytosis, bandemia * Source: Small bowel Enteritis * Code sepsis called in ED - initial lactate 4.8 * Lactate: 4.8-->3.1-->1.2 * IV Flagyl and Zosyn given in ED * Blood cultures (02/16/18): pending * Blood cultures (02/17/18): pending * UA and Urine culture (02/16/18): * UA - 3-5 hyaline cysts, no leuk esterase or nitrates * Procalcitonin: 4.25 * ABx * Continued Flagyl 500mg IV Q8H (active since 02/16/18) * Continued Zosyn 3.375gm IV Q6H (active since 02/16/18) * NS 100cc/hr * Toradol 15mg IV Q 6H PRN severe pain 2) Small bowel enteritis: Assessment/Plan * Infectious Disease (Dr. Tan) juvenile probation officer-->help appreciated * f/u enterovirus * f/u stool studies * pending GI evaluation * General surgery (Dr. Flaherty) on case-->help appreciated * No surgery intervention * Diet advanced to clear liquids * CT Abd/Pelvis (02/16) - "Findings mostly represent small-bowel enteritis. Clinical correlation recommended. No evidence of acute mechanical bowel obstruction. Diverticulosis without radiographic evidence of acute diverticulitis. There appears to be a very small amount of free fluid and infiltration changes within the pelvic mesentery. Multiple small to medium sized lymph nodes seen in the upper abdomen as well as scattered throughout the mesentery. Rule out mesenteric adenitis. Moderate fatty hepatic infiltration. Probable hyperdense renal cyst. Renal US followup could confirm and exclude any solid components." * IV antibiotics to cover for colitis * pending stool studies and culture * Hx Meckels/mesenteric adenitis * Liquid diet per surgery 3) Hypertension Assessment/Plan * PO antihypertensive meds held * Monitor vital signs * on iv fluids 4) Lipd disorder Assessment/Plan * Lipid panel: T TG, chol: 132, LDL: 73, HDL; 26 * Discussed with patient at bedside, he is aware he needs to commit to diet modifcations and exercise to improve his cholestrol and improve HDL 5) Tachycardia-->Resolved Assessment/Plan * EKG order to establish baseline; spoke with RN, Radha to complete * normalized; normal sinus rhythm 6) Impaired glucose tolerance Assessment/Plan * hgba1c: 5.9 * Hypoglycemia protocol initiated * Discussed with patient he needs to commit to diet modifications and exercise to prevent overt diabetes 7) Ppx * DVT PPx: SCDs b/l (1 risk factor for age). * GI: Protonix 40mg IV daily * NS 100cc/hr * liquid diet * d/c telemetry: patient's lactic acid has resolved, hemodynamically stable.
[2018-02-18] MEDS: Piperacill/Tazo 3.375gm in Dex 3.375 GM/50 ML BAG IVPB SCH ×4 (02:18→20:42)
[2018-02-18] MEDS: metroNIDAZOLE IV 500 mg/100 ml 500 MG/100 ML BAG IVPB SCH ×3 (06:04→23:06)
[2018-02-18] MEDS: Sodium Chloride 0.9% 1,000 ML IV SCH ×2 (06:29→20:46)
[2018-02-18 08:13] LABS: ALB/GLOB RATIO 1.8 (1.0-2.1); ALBUMIN 3.8 g/dL (3.5-5.0); ALT/SGPT 33 U/L (21-72); AST/SGOT 22 U/L (17-59); BLOOD UREA NITROGEN 7 mg/dL (9-20); CALCIUM 8.9 mg/dl (8.6-10.4); GFR NON-AFRICAN AMERICAN > 60
[2018-02-18 08:21] LABS: BASO % 0.3 % (0.0-2.0); EOS # 0.5 K/uL (0.0-0.7); EOS % 7.3 % (0.0-4.0); HEMOGLOBIN 12.5 g/dL (12.0-18.0); LYMPH # 1.8 K/uL (1.0-4.3); LYMPH % 28.7 % (20.0-40.0); MEAN CELL VOLUME 87.2 fL (80.0-94.0); MEAN CORPUSCULAR HEMOGLOBIN 30.9 pg (27.0-31.0); MEAN CORPUSCULAR HGB CONC 35.4 g/dL (33.0-37.0); MEAN PLATELET VOLUME 7.5 fL (7.2-11.7); MONO # 0.5 K/uL (0.0-0.8); MONO % 7.4 % (0.0-10.0); NEUT # 3.6 K/uL (1.8-7.0); NEUT % 56.3 % (50.0-75.0); NRBC % 0.1 % (0.0-2.0); RBC 4.03 Mil/uL (4.40-5.90); RED CELL DISTRIBUTION WIDTH 13.5 % (11.5-14.5); WHITE BLOOD COUNT 6.4 K/uL (4.8-10.8)
[2018-02-18 08:34] LABS: HEPATITIS B SURFACE AG Negative (NEGATIVE)
[2018-02-18 08:40] LABS: HEPATITIS A IGM NEGATIVE (NEGATIVE); HEPATITIS B CORE AB NEGATIVE (NEGATIVE)
[2018-02-18 08:52] LABS: HEPATITIS C ANTIBODY NEGATIVE (NEGATIVE)
--- NOTE | 2018-02-18 12:54 | CP.PCM.PN ---
<Elise Choi V - Last Filed: 02/18/18 20:03> Objective - Vital Signs/Intake and Output Vital Signs (last 24 hours): Temp Pulse Resp BP Pulse Ox 98 F 72 20 163/97 H 100 02/18/18 15:30 02/18/18 15:30 02/18/18 15:30 02/18/18 15:30 02/18/18 15:30 Intake and Output: 02/18/18 02/19/18 18:59 06:59 Intake Total 950 Balance 950 - Medications Medications: Current Medications Dextrose (Dextrose 50% Inj) 0 ml IV STAT PRN; Protocol PRN Reason: Hypoglycemia Protocol Dextrose (Glutose 15) 0 gm PO ONCE PRN; Protocol PRN Reason: Hypoglycemia Protocol Glucagon (Glucagen Diagnostic Kit) 0 mg IM STAT PRN; Protocol PRN Reason: Hypoglycemia Protocol Sodium Chloride (Sodium Chloride 0.9%) 1,000 mls @ 100 mls/hr IV .Q10H [facility] Last Admin: 02/18/18 06:29 Dose: 100 mls/hr Metronidazole (Flagyl) 500 mg in 100 mls @ 100 mls/hr IVPB Q8H SANDI PRN Reason: Protocol Last Admin: 02/18/18 14:59 Dose: 100 mls/hr Piperacillin Sod/Tazobactam Sod (Zosyn 3.375 Gm Iv Premix) 3.375 gm in 50 mls @ 100 mls/hr IVPB Q6H SANDI PRN Reason: Protocol Last Admin: 02/18/18 14:03 Dose: 100 mls/hr Dextrose (Dextrose 5% In Water 1000 Ml) 1,000 mls @ 0 mls/hr IV .Q0M PRN; Protocol; Per Protocol PRN Reason: Hypoglycemia Protocol Ketorolac Tromethamine (Toradol) 15 mg IVP Q6 PRN PRN Reason: Pain, severe (8-10) Stop: 02/19/18 11:23 Ondansetron HCl (Zofran Inj) 4 mg IVP Q6 PRN PRN Reason: Nausea/Vomiting Pantoprazole Sodium (Protonix Inj) 40 mg IVP DAILY [facility] Last Admin: 02/18/18 09:48 Dose: 40 mg - Labs Labs: 02/18/18 07:44 02/18/18 07:44 PT 11.5 SECONDS (9.7-12.2) 02/16/18 10:56 INR 1.1 02/16/18 10:56 APTT 33 SECONDS (21-34) 02/16/18 10:56 - Constitutional Appears: Non-toxic, No Acute Distress - Head Exam Head Exam: NORMAL INSPECTION - Eye Exam Eye Exam: EOMI - ENT Exam ENT Exam: Mucous Membranes Moist - Respiratory Exam Respiratory Exam: Clear to Ausculation Bilateral, NORMAL BREATHING PATTERN. absent: Rales, Rhonchi, Wheezes - Cardiovascular Exam Cardiovascular Exam: REGULAR RHYTHM, +S1, +S2 - GI/Abdominal Exam GI & Abdominal Exam: Distended (mild), Soft, Normal Bowel Sounds. absent: Firm , Guarding, Rigid, Tenderness, Rebound Additional comments: healed incision from prior surgery - Extremities Exam Extremities Exam: absent: Pedal Edema, Tenderness - Neurological Exam Neurological Exam: Alert, Awake, Normal Gait, Oriented x3 Neuro motor strength exam: Left Upper Extremity: 5, Right Upper Extremity: 5, Left Lower Extremity: 5, Right Lower Extremity: 5 - Psychiatric Exam Psychiatric exam: Normal Affect, Normal Mood - Skin Skin Exam: Dry, Intact, Normal Color, Warm Attending/Attestation - Attestation I have personally seen and examined this patient.: Yes I have fully participated in the care of the patient.: Yes I have reviewed all pertinent clinical information, including history, physical exam and plan: Yes Notes (Text): Patient seen, examined and case discussed with medical field representative. Patient seen this morning with at bedside. Patient reports abdominal pain has improved, only noticeable when he presses. Patient remains afebrile, normalized white count, and currently on IV abx. Resident has spoken with GI will follow-up with patient today. Patient to be NPO per GI until he is evaluated. Blood cultures (02/16/18): 1/2 positive follow-up final culture. We are awaiting Blood cultures from 02/17/18. Patient's stool leukocytes are negative, C. dif negative, hepatitis negative. Positive stool occult blood. I have spoken with the patient later this evening per request of the patient. He reports he feels anxious about his medications secondary to encounter to his nurse which did not sit well with him. He reports he has had prior experience wherein his received a medication in error while which he gives him anxiety. I have spoken with charge nurse, May in regards to this and will follow-up with him. I have went over his medications in regards to what he is receiving and what they are being used for in his care at this time. Assessment/Plan 1) Sepsis Assessment/Plan * ID Consulted - Dr. Tan. Help appreciated * Criteria: Tachycardia, leukocytosis, bandemia * Source: Small bowel Enteritis; Bacteremia? * Code sepsis called in ED - initial lactate 4.8 * Lactate: 4.8-->3.1-->1.2 * IV Flagyl and Zosyn given in ED * Blood cultures (02/16/18): Corneybacterium; no growth after 48 hours * Blood cultures (02/17/18): pending * UA and Urine culture (02/16/18): * UA - 3-5 hyaline cysts, no leuk esterase or nitrates * Procalcitonin: 4.25 * ABx * Continued Flagyl 500mg IV Q8H (active since 02/16/18) * Continued Zosyn 3.375gm IV Q6H (active since 02/16/18) * NS 100cc/hr * Toradol 15mg IV Q 6H PRN severe pain 2) Small bowel enteritis: Assessment/Plan * Infectious Disease (Dr. Tan) centralized traffic control operator-->help appreciated * f/u enterovirus * Stool leukocytes: negative * f/u stool ova and parsite * C. Dif negative * pending GI evaluation * General surgery (Dr. Flaherty) on case-->help appreciated * No surgery intervention * Diet advanced to clear liquids * GI (Dr. Jessica)-->pending evaluation * Requested patient to remain NPO until he has evaluated him * CT Abd/Pelvis (02/16) - "Findings mostly represent small-bowel enteritis. Clinical correlation recommended. No evidence of acute mechanical bowel obstruction. Diverticulosis without radiographic evidence of acute diverticulitis. There appears to be a very small amount of free fluid and infiltration changes within the pelvic mesentery. Multiple small to medium sized lymph nodes seen in the upper abdomen as well as scattered throughout the mesentery. Rule out mesenteric adenitis. Moderate fatty hepatic infiltration. Probable hyperdense renal cyst. Renal US followup could confirm and exclude any solid components." * IV antibiotics to cover for colitis * Pending stool culture * stool leukocytes negative * Pending stool ova and parasite * Hx Meckels/mesenteric adenitis * Liquid diet per surgery 3) Hypertension Assessment/Plan * PO antihypertensive meds held * Monitor vital signs * on iv fluids 4) Lipd disorder Assessment/Plan * Lipid panel: T TG, chol: 132, LDL: 73, HDL; 26 * Discussed with patient at bedside, he is aware he needs to commit to diet modifications and exercise to improve his cholesterol and improve HDL 5) Tachycardia-->Resolved Assessment/Plan * EKG order to establish baseline; spoke with RNRadha to complete * normalized; normal sinus rhythm 6) Impaired glucose tolerance Assessment/Plan * hgba1c: 5.9 * Hypoglycemia protocol initiated * Discussed with patient he needs to commit to diet modifications and exercise to prevent overt diabetes 7) Ppx * DVT PPx: SCDs b/l (1 risk factor for age). * GI: Protonix 40mg IV daily * NS 100cc/hr * NPO * d/c telemetry: patient's lactic acid has resolved, hemodynamically stable. Disposition: pending GI evaluation. f/u Blood cultures (02/17 and 02/16), c/w IV abx <Norbert Villalba - Last Filed: 02/18/18 20:23> Subjective - Date & Time of Evaluation Date of Evaluation: 02/18/18 Time of Evaluation: 12:54 - Subjective Subjective: PGY-[address] Choi Patient was seen and examined today at bedside. Per nursing, no acute changes overnight. Patient states that he is feeling a little bit better and the abdominal pain is not there unless he presses on the area. He reports that he is supposed to see GI (Dr. Jessica) today. Last bowel movement was this morning and was slightly watery. Denies headache, chest pain, shortness of breath, nausea, vomiting, diarrhea, dizziness, fever, chills. Update 20:00 - Pt still waiting for GI evaluation. Pt still NPO. Will f/u tomorrow. Objective - Vital Signs/Intake and Output Vital Signs (last 24 hours): Temp Pulse Resp BP Pulse Ox 98.0 F 79 18 139/94 H 99 02/18/18 07:15 02/18/18 07:15 02/18/18 07:15 02/18/18 07:15 02/18/18 07:15 Intake and Output: 09/12/18 09/12/18 06:59 18:59 Intake Total 950 Balance 950 - Medications Medications: Current Medications Dextrose (Dextrose 50% Inj) 0 ml IV STAT PRN; Protocol PRN Reason: Hypoglycemia Protocol Dextrose (Glutose 15) 0 gm PO ONCE PRN; Protocol PRN Reason: Hypoglycemia Protocol Glucagon (Glucagen Diagnostic Kit) 0 mg IM STAT PRN; Protocol PRN Reason: Hypoglycemia Protocol Sodium Chloride (Sodium Chloride 0.9%) 1,000 mls @ 100 mls/hr IV .Q10H [facility] Last Admin: 02/18/18 06:29 Dose: 100 mls/hr Metronidazole (Flagyl) 500 mg in 100 mls @ 100 mls/hr IVPB Q8H SANDI PRN Reason: Protocol Last Admin: 02/18/18 06:04 Dose: 100 mls/hr Piperacillin Sod/Tazobactam Sod (Zosyn 3.375 Gm Iv Premix) 3.375 gm in 50 mls @ 100 mls/hr IVPB Q6H SANDI PRN Reason: Protocol Last Admin: 02/18/18 09:47 Dose: 100 mls/hr Dextrose (Dextrose 5% In Water 1000 Ml) 1,000 mls @ 0 mls/hr IV .Q0M PRN; Protocol; Per Protocol PRN Reason: Hypoglycemia Protocol Ketorolac Tromethamine (Toradol) 15 mg IVP Q6 PRN PRN Reason: Pain, severe (8-10) Stop: 02/19/18 11:23 Ondansetron HCl (Zofran Inj) 4 mg IVP Q6 PRN PRN Reason: Nausea/Vomiting Pantoprazole Sodium (Protonix Inj) 40 mg IVP DAILY [facility] Last Admin: 02/18/18 09:48 Dose: 40 mg - Labs Labs: 02/18/18 07:44 02/18/18 07:44 PT 11.5 SECONDS (9.7-12.2) 02/16/18 10:56 INR 1.1 02/16/18 10:56 APTT 33 SECONDS (21-34) 02/16/18 10:56 Assessment and Plan - Assessment and Plan (Free Text) Assessment: Assessment/Plan 1) Sepsis Assessment/Plan * ID Consulted - Dr. Tan. Help appreciated * Criteria: Tachycardia, leukocytosis, bandemia * Source: Small bowel Enteritis * Code sepsis called in ED - initial lactate 4.8 * Lactate: 4.8-->3.1-->1.2 * IV Flagyl and Zosyn given in ED * Blood culture 1 (02/16/18): Corynebacteria (Final) * Blood culture 2 (02/16/18): No growth at 48 hours * UA and Urine culture (02/16/18): * UA - 3-5 hyaline cysts, no leuk esterase or nitrates * Procalcitonin 02/16 4.25 --> will f/u repeat tomorrow * ABx * Continued Flagyl 500mg IV Q8H (active since 02/16/18) * Continued Zosyn 3.375gm IV Q6H (active since 02/16/18) * NS 100cc/hr * Toradol 15mg IV Q 6H PRN severe pain * Clinically improving 2) Bacteremia * IV antibiotics to cover for colitis * Continued Flagyl 500mg IV Q8H (active since 02/16/18) * Continued Zosyn 3.375gm IV Q6H (active since 02/16/18) * Blood culture 1 (02/16/18): Corynebacteria (Final) * Blood culture 2 (02/16/18): No growth at 48 hours * Repeat blood cultures until no growth before pt safe to discharge 3) Small bowel enteritis: Assessment/Plan * Infectious Disease (Dr. Tan) centralized traffic control operator-->help appreciated * f/u enterovirus * stool studies - negative O and P * pending GI evaluation * C dif negative * Hepatitis panel negative * General surgery (Dr. Flaherty) on case-->help appreciated * No surgery intervention * Diet advanced to clear liquids --> back to NPO pending GI eval * CT Abd/Pelvis (02/16) - "Findings mostly represent small-bowel enteritis. Clinical correlation recommended. No evidence of acute mechanical bowel obstruction. Diverticulosis without radiographic evidence of acute diverticulitis. There appears to be a very small amount of free fluid and infiltration changes within the pelvic mesentery. Multiple small to medium sized lymph nodes seen in the upper abdomen as well as scattered throughout the mesentery. Rule out mesenteric adenitis. Moderate fatty hepatic infiltration. Probable hyperdense renal cyst. Renal US followup could confirm and exclude any solid components." * Stool Ova and Parasite (02/17) - No ova or parasite seen * IV antibiotics to cover for colitis * Continued Flagyl 500mg IV Q8H (active since 02/16/18) * Continued Zosyn 3.375gm IV Q6H (active since 02/16/18) * Hx Meckels/mesenteric adenitis * Liquid diet per surgery 4) Hypertension Assessment/Plan * PO antihypertensive meds held * Monitor vital signs * on iv fluids 5) Lipd disorder Assessment/Plan * Lipid panel: T TG, chol: 132, LDL: 73, HDL; 26 * Discussed with patient at bedside, he is aware he needs to commit to diet modifcations and exercise to improve his cholestrol and improve HDL 6) Tachycardia-->Resolved Assessment/Plan * EKG order to establish baseline; spoke with Radha CUTLER to complete * normalized; normal sinus rhythm 7) Impaired glucose tolerance Assessment/Plan * hgba1c: 5.9 * Hypoglycemia protocol initiated * Discussed with patient he needs to commit to diet modifications and exercise to prevent overt diabetes 8) Ppx * DVT PPx: SCDs b/l (1 risk factor for age). * GI: Protonix 40mg IV daily * NS 100cc/hr * liquid diet * d/c telemetry: patient's lactic acid has resolved, hemodynamically stable.
[2018-02-18 15:44] VITALS: RESP 20
--- NOTE | 2018-02-18 15:50 | CP.PCM.PN ---
Subjective - Date & Time of Evaluation Date of Evaluation: 02/18/18 Time of Evaluation: 08:00 - Subjective Subjective: improving afebrile in NAD Objective - Vital Signs/Intake and Output Vital Signs (last 24 hours): Temp Pulse Resp BP Pulse Ox 98 F 72 20 163/97 H 100 02/18/18 15:30 02/18/18 15:30 02/18/18 15:30 02/18/18 15:30 02/18/18 15:30 Intake and Output: 02/18/18 02/18/18 06:59 18:59 Intake Total 950 Balance 950 - Medications Medications: Current Medications Dextrose (Dextrose 50% Inj) 0 ml IV STAT PRN; Protocol PRN Reason: Hypoglycemia Protocol Dextrose (Glutose 15) 0 gm PO ONCE PRN; Protocol PRN Reason: Hypoglycemia Protocol Glucagon (Glucagen Diagnostic Kit) 0 mg IM STAT PRN; Protocol PRN Reason: Hypoglycemia Protocol Sodium Chloride (Sodium Chloride 0.9%) 1,000 mls @ 100 mls/hr IV .Q10H [facility] Last Admin: 02/18/18 06:29 Dose: 100 mls/hr Metronidazole (Flagyl) 500 mg in 100 mls @ 100 mls/hr IVPB Q8H SANDI PRN Reason: Protocol Last Admin: 02/18/18 14:59 Dose: 100 mls/hr Piperacillin Sod/Tazobactam Sod (Zosyn 3.375 Gm Iv Premix) 3.375 gm in 50 mls @ 100 mls/hr IVPB Q6H SANDI PRN Reason: Protocol Last Admin: 02/18/18 14:03 Dose: 100 mls/hr Dextrose (Dextrose 5% In Water 1000 Ml) 1,000 mls @ 0 mls/hr IV .Q0M PRN; Protocol; Per Protocol PRN Reason: Hypoglycemia Protocol Ketorolac Tromethamine (Toradol) 15 mg IVP Q6 PRN PRN Reason: Pain, severe (8-10) Stop: 02/19/18 11:23 Ondansetron HCl (Zofran Inj) 4 mg IVP Q6 PRN PRN Reason: Nausea/Vomiting Pantoprazole Sodium (Protonix Inj) 40 mg IVP DAILY [facility] Last Admin: 02/18/18 09:48 Dose: 40 mg - Labs Labs: 02/18/18 07:44 02/18/18 07:44 PT 11.5 SECONDS (9.7-12.2) 02/16/18 10:56 INR 1.1 02/16/18 10:56 APTT 33 SECONDS (21-34) 02/16/18 10:56 - Constitutional Appears: Non-toxic, Chronically Ill - Head Exam Head Exam: NORMOCEPHALIC - Eye Exam Eye Exam: PERRL. absent: Scleral icterus - ENT Exam ENT Exam: Mucous Membranes Dry - Neck Exam Neck Exam: absent: Lymphadenopathy - Respiratory Exam Respiratory Exam: Decreased Breath Sounds - Cardiovascular Exam Cardiovascular Exam: REGULAR RHYTHM - GI/Abdominal Exam GI & Abdominal Exam: Distended, Soft - Rectal Exam Rectal Exam: Deferred - Exam Exam: NORMAL INSPECTION - Extremities Exam Extremities Exam: absent: Pedal Edema - Back Exam Back Exam: absent: CVA tenderness (L), CVA tenderness (R) - Neurological Exam Neurological Exam: Alert, Awake, Oriented x3 - Psychiatric Exam Psychiatric exam: Normal Mood - Skin Skin Exam: Dry Assessment and Plan (1) Bandemia Status: Acute (2) Enteritis Status: Acute (3) Meckel diverticulum Status: Acute (4) Sepsis Status: Acute - Assessment and Plan (Free Text) Assessment: CT Abd/Pelvis (02/16) - "Findings mostly represent small-bowel enteritis. Clinical correlation recommended. No evidence of acute mechanical bowel obstruction. Diverticulosis without radiographic evidence of acute diverticulitis. There appears to be a very small amount of free fluid and infiltration changes within the pelvic mesentery. Multiple small to medium sized lymph nodes seen in the upper abdomen as well as scattered throughout the mesentery. Rule out mesenteric adenitis. Moderate fatty hepatic infiltration. Probable hyperdense renal cyst. Renal US followup could confirm and exclude any solid components." cultures show gram + rods likely a contaminant await final reports improving on current rx- c diff neg serologies neg thus far possible d/c on PO rx once cultures finalized GI follow up as out pt
[2018-02-19 00:24] VITALS: O2SAT 99
[2018-02-19] MEDS: Piperacill/Tazo 3.375gm in Dex 3.375 GM/50 ML BAG IVPB SCH ×4 (02:24→21:51)
[2018-02-19] MEDS: Sodium Chloride 0.9% 1,000 ML IV SCH (02:59)
[2018-02-19] MEDS: metroNIDAZOLE IV 500 mg/100 ml 500 MG/100 ML BAG IVPB SCH ×3 (06:45→23:28)
[2018-02-19 08:04] LABS: BASO % 0.3 % (0.0-2.0); EOS # 0.4 K/uL (0.0-0.7); EOS % 6.5 % (0.0-4.0); HEMOGLOBIN 12.3 g/dL (12.0-18.0); LYMPH # 1.7 K/uL (1.0-4.3); LYMPH % 27.6 % (20.0-40.0); MEAN CELL VOLUME 87.6 fL (80.0-94.0); MEAN CORPUSCULAR HEMOGLOBIN 30.3 pg (27.0-31.0); MEAN CORPUSCULAR HGB CONC 34.5 g/dL (33.0-37.0); MEAN PLATELET VOLUME 7.2 fL (7.2-11.7); MONO # 0.5 K/uL (0.0-0.8); MONO % 7.7 % (0.0-10.0); NEUT # 3.5 K/uL (1.8-7.0); NEUT % 57.9 % (50.0-75.0); RBC 4.08 Mil/uL (4.40-5.90); RED CELL DISTRIBUTION WIDTH 13.6 % (11.5-14.5); WHITE BLOOD COUNT 6.1 K/uL (4.8-10.8)
[2018-02-19 08:56] LABS: ALB/GLOB RATIO 1.3 (1.0-2.1); ALBUMIN 3.7 g/dL (3.5-5.0); ALT/SGPT 30 U/L (21-72); AST/SGOT 23 U/L (17-59); BLOOD UREA NITROGEN 10 mg/dL (9-20); CALCIUM 8.6 mg/dl (8.6-10.4); GFR NON-AFRICAN AMERICAN > 60
--- NOTE | 2018-02-19 16:20 | CP.PCM.PN ---
<Norbert Villalba - Last Filed: 02/19/18 17:27> Subjective - Date & Time of Evaluation Date of Evaluation: 02/19/18 Time of Evaluation: 16:19 - Subjective Subjective: PGY-[address] Choi Patient was seen and examined today at bedside. Per nursing, no acute events overnight. Patient reports that he feels about the same. Patient has no abdominal pain at rest. Patient states that he was able to eat some solid food last night for dinner. He reports that he did not see the GI doctor yesterday and will probably see the doctor today. Denies fever, chills, headache, chest pain, shortness of breath, nausea, vomiting, diarrhea, constipation, dizziness. Objective - Vital Signs/Intake and Output Vital Signs (last 24 hours): Temp Pulse Resp BP Pulse Ox 98.5 F 71 20 158/95 H 99 02/19/18 08:36 02/19/18 08:36 02/19/18 08:36 02/19/18 08:36 02/19/18 08:36 Intake and Output: 02/19/18 02/19/18 06:59 18:59 Intake Total 2240 Balance 2240 - Medications Medications: Current Medications Dextrose (Dextrose 50% Inj) 0 ml IV STAT PRN; Protocol PRN Reason: Hypoglycemia Protocol Dextrose (Glutose 15) 0 gm PO ONCE PRN; Protocol PRN Reason: Hypoglycemia Protocol Glucagon (Glucagen Diagnostic Kit) 0 mg IM STAT PRN; Protocol PRN Reason: Hypoglycemia Protocol Sodium Chloride (Sodium Chloride 0.9%) 1,000 mls @ 100 mls/hr IV .Q10H [facility] Last Admin: 02/19/18 02:59 Dose: 100 mls/hr Metronidazole (Flagyl) 500 mg in 100 mls @ 100 mls/hr IVPB Q8H [facility] PRN Reason: Protocol Last Admin: 02/19/18 15:32 Dose: 100 mls/hr Piperacillin Sod/Tazobactam Sod (Zosyn 3.375 Gm Iv Premix) 3.375 gm in 50 mls @ 100 mls/hr IVPB Q6H [facility] PRN Reason: Protocol Last Admin: 02/19/18 14:19 Dose: 100 mls/hr Dextrose (Dextrose 5% In Water 1000 Ml) 1,000 mls @ 0 mls/hr IV .Q0M PRN; Protocol; Per Protocol PRN Reason: Hypoglycemia Protocol Ondansetron HCl (Zofran Inj) 4 mg IVP Q6 PRN PRN Reason: Nausea/Vomiting Pantoprazole Sodium (Protonix Inj) 40 mg IVP DAILY [facility] Last Admin: 02/19/18 09:33 Dose: 40 mg - Labs Labs: 02/19/18 07:47 02/19/18 07:47 PT 11.5 SECONDS (9.7-12.2) 02/16/18 10:56 INR 1.1 02/16/18 10:56 APTT 33 SECONDS (21-34) 02/16/18 10:56 - Constitutional Appears: Well, Non-toxic, No Acute Distress - Head Exam Head Exam: ATRAUMATIC - Eye Exam Eye Exam: EOMI, Normal appearance Pupil Exam: NORMAL ACCOMODATION, PERRL - ENT Exam ENT Exam: Mucous Membranes Moist - Respiratory Exam Respiratory Exam: Clear to Ausculation Bilateral, NORMAL BREATHING PATTERN - Cardiovascular Exam Cardiovascular Exam: REGULAR RHYTHM, RRR, +S1, +S2. absent: Murmur - GI/Abdominal Exam GI & Abdominal Exam: Soft, Tenderness, Normal Bowel Sounds Additional comments: Mild RLQ tenderness that pt states is chronic 2/2 hx abdominal surgery - Extremities Exam Extremities Exam: Normal Capillary Refill, Normal Inspection. absent: Pedal Edema, Tenderness - Neurological Exam Neurological Exam: Alert, Awake, CN II-XII Intact, Normal Gait, Oriented x3 Neuro motor strength exam: Left Upper Extremity: 5, Right Upper Extremity: 5, Left Lower Extremity: 5, Right Lower Extremity: 5 - Psychiatric Exam Psychiatric exam: Normal Affect, Normal Mood - Skin Skin Exam: Dry, Intact, Normal Color, Warm Assessment and Plan - Assessment and Plan (Free Text) Assessment: 1) Sepsis Assessment/Plan * ID Consulted - Dr. Tan. Help appreciated * Criteria: Tachycardia, leukocytosis, bandemia * Source: Small bowel Enteritis * Code sepsis called in ED - initial lactate 4.8 * Lactate: 4.8-->3.1-->1.2 * IV Flagyl and Zosyn given in ED * Blood culture 1 (02/16/18): Corynebacteria (Final) * Blood culture 2 (02/16/18): No growth at 48 hours * UA and Urine culture (02/16/18): * UA - 3-5 hyaline cysts, no leuk esterase or nitrates * Procalcitonin 02/16 4.25 --> 1.18 --> f/u repeat tomorrow * ABx * Continued Flagyl 500mg IV Q8H (active since 02/16/18) * Continued Zosyn 3.375gm IV Q6H (active since 02/16/18) * NS 100cc/hr * Toradol 15mg IV Q 6H PRN severe pain * Clinically improving 2) Bacteremia * IV antibiotics to cover for colitis * Continued Flagyl 500mg IV Q8H (active since 02/16/18) * Continued Zosyn 3.375gm IV Q6H (active since 02/16/18) * Blood culture 1 (02/16/18): Corynebacteria (Final) * Blood culture 2 (02/16/18): No growth at 48 hours * Per Dr. Tan: Positive culture for Corynebacteria most likely represents a contaminate, not an actual bacteremia. 3) Small bowel enteritis: Assessment/Plan * Infectious Disease (Dr. Tan) accordion maker-->help appreciated * Hemoccult positive * f/u enterovirus * Stool cultures negative (02/17)- (Salmonella, Shigella, Campylobacter) - FINAL * Stool leukocytes negative * Stool Ova and Parasite (02/17) - No ova or parasite seen * C dif negative * Hepatitis panel negative * White count - resolved * Will follow up recs for home oral Abx * General surgery (Dr. Flaherty) on case-->help appreciated * No surgery intervention * Diet advanced to heart healthy diet (solid foods) * Pending GI evaluation * CT Abd/Pelvis (02/16) - "Findings mostly represent small-bowel enteritis. Clinical correlation recommended. No evidence of acute mechanical bowel obstruction. Diverticulosis without radiographic evidence of acute diverticulitis. There appears to be a very small amount of free fluid and infiltration changes within the pelvic mesentery. Multiple small to medium sized lymph nodes seen in the upper abdomen as well as scattered throughout the mesentery. Rule out mesenteric adenitis. Moderate fatty hepatic infiltration. Probable hyperdense renal cyst. Renal US followup could confirm and exclude any solid components." * IV antibiotics to cover for colitis * Continued Flagyl 500mg IV Q8H (active since 02/16/18) * Continued Zosyn 3.375gm IV Q6H (active since 02/16/18) * Hx Meckels/mesenteric adenitis * Follow up procalcitonin tomorrow AM. Possible discharge tomorrow on PO antibiotics. 4) Hypertension Assessment/Plan * PO antihypertensive meds held * Monitor vital signs * on iv fluids 5) Lipd disorder Assessment/Plan * Lipid panel: T TG, chol: 132, LDL: 73, HDL; 26 * Discussed with patient at bedside, he is aware he needs to commit to diet modifcations and exercise to improve his cholestrol and improve HDL 6) Tachycardia-->Resolved Assessment/Plan * EKG order to establish baseline; spoke with RNRadha to complete * normalized; normal sinus rhythm 7) Impaired glucose tolerance Assessment/Plan * hgba1c: 5.9 * Hypoglycemia protocol initiated * Discussed with patient he needs to commit to diet modifications and exercise to prevent overt diabetes 8) Ppx * DVT PPx: SCDs b/l (1 risk factor for age). * GI: Protonix 40mg IV daily * NS 100cc/hr * liquid diet * d/c telemetry: patient's lactic acid has resolved, hemodynamically stable. Dispo: Per Dr. Tan, positive culture most likely represented a contaminated specimen. Follow up procalcitonin tomorrow. If patient continues to tolerate solid foods and his procalcitonin resolves, pt can most likely be discharged home tomorrow on PO antibiotics per ID recs. Assessment/Plan discussed with Dr. Steph Villalba, PGY-1 <Elise Choi V - Last Filed: 02/23/18 13:25> Objective - Vital Signs/Intake and Output Vital Signs (last 24 hours): Temp Pulse Resp BP Pulse Ox 98.6 F 82 20 154/94 H 99 02/20/18 08:12 02/20/18 08:12 02/20/18 08:12 02/20/18 08:12 02/20/18 08:12 - Labs Labs: 02/20/18 06:18 02/20/18 06:18 PT 11.5 SECONDS (9.7-12.2) 02/16/18 10:56 INR 1.1 02/16/18 10:56 APTT 33 SECONDS (21-34) 02/16/18 10:56 Attending/Attestation - Attestation I have personally seen and examined this patient.: Yes I have fully participated in the care of the patient.: Yes I have reviewed all pertinent clinical information, including history, physical exam and plan: Yes Notes (Text): This is a late computer entry for 02/19/2018. Patient seen, examined, case discussed with medical care administrator. Patient awaiting GI evaluation. I have spoke with Dr. Tomeka Sotelo he does plan on seeing the patient today. We will continue IV antibiotics to cover for small bowel enteritis. Patient denies any episodes of diarrhea abdominal pain is more or less is improved. Per ID likely but initial blood cultures are contaminated. We will trend the patient 's pro-calcitonin as well. Plan for discharge tomorrow. 1) Sepsis Assessment/Plan * ID Consulted - Dr. Tan. Help appreciated * Criteria: Tachycardia, leukocytosis, bandemia * Source: Small bowel Enteritis * Code sepsis called in ED - initial lactate 4.8 * Lactate: 4.8-->3.1-->1.2 * IV Flagyl and Zosyn given in ED * Blood culture 1 (02/16/18): Corynebacteria (Final) * Blood culture 2 (02/16/18): No growth at 48 hours * UA and Urine culture (02/16/18): * UA - 3-5 hyaline cysts, no leuk esterase or nitrates * Procalcitonin 02/16 4.25 --> 1.18 --> f/u repeat tomorrow * ABx * Continued Flagyl 500mg IV Q8H (active since 02/16/18) * Continued Zosyn 3.375gm IV Q6H (active since 02/16/18) * NS 100cc/hr * Toradol 15mg IV Q 6H PRN severe pain * Clinically improving 2) Bacteremia * IV antibiotics to cover for colitis * Continued Flagyl 500mg IV Q8H (active since 02/16/18) * Continued Zosyn 3.375gm IV Q6H (active since 02/16/18) * Blood culture 1 (02/16/18): Corynebacteria (Final) * Blood culture 2 (02/16/18): No growth at 48 hours * Per Dr. Tan: Positive culture for Corynebacteria most likely represents a contaminate, not an actual bacteremia. 3) Small bowel enteritis: Assessment/Plan * Infectious Disease (Dr. Tan) accordion maker-->help appreciated * Hemoccult positive * f/u enterovirus * Stool cultures negative (02/17)- (Salmonella, Shigella, Campylobacter) - FINAL * Stool leukocytes negative * Stool Ova and Parasite (02/17) - No ova or parasite seen * C dif negative * Hepatitis panel negative * White count - resolved * Will follow up recs for home oral Abx * General surgery (Dr. Flaherty) on case-->help appreciated * No surgery intervention * Diet advanced to heart healthy diet (solid foods) * Pending GI evaluation * CT Abd/Pelvis (02/16) - "Findings mostly represent small-bowel enteritis. Clinical correlation recommended. No evidence of acute mechanical bowel obstruction. Diverticulosis without radiographic evidence of acute diverticulitis. There appears to be a very small amount of free fluid and infiltration changes within the pelvic mesentery. Multiple small to medium sized lymph nodes seen in the upper abdomen as well as scattered throughout the mesentery. Rule out mesenteric adenitis. Moderate fatty hepatic infiltration. Probable hyperdense renal cyst. Renal US followup could confirm and exclude any solid components." * IV antibiotics to cover for colitis * Continued Flagyl 500mg IV Q8H (active since 02/16/18) * Continued Zosyn 3.375gm IV Q6H (active since 02/16/18) * Hx Meckels/mesenteric adenitis * Follow up procalcitonin tomorrow AM. Possible discharge tomorrow on PO antibiotics. 4) Hypertension Assessment/Plan * PO antihypertensive meds held * Monitor vital signs * on iv fluids 5) Lipd disorder Assessment/Plan * Lipid panel: T TG, chol: 132, LDL: 73, HDL; 26 * Discussed with patient at bedside, he is aware he needs to commit to diet modifcations and exercise to improve his cholestrol and improve HDL 6) Tachycardia-->Resolved Assessment/Plan * EKG order to establish baseline; spoke with RNRadha to complete * normalized; normal sinus rhythm 7) Impaired glucose tolerance Assessment/Plan * hgba1c: 5.9 * Hypoglycemia protocol initiated * Discussed with patient he needs to commit to diet modifications and exercise to prevent overt diabetes 8) Ppx * DVT PPx: SCDs b/l (1 risk factor for age). * GI: Protonix 40mg IV daily * NS 100cc/hr * liquid diet * d/c telemetry: patient's lactic acid has resolved, hemodynamically stable.
--- NOTE | 2018-02-19 18:40 | CP.PCM.PN ---
Subjective - Date & Time of Evaluation Date of Evaluation: 02/19/18 Time of Evaluation: 09:00 - Subjective Subjective: afeb less pain no diarrhea\ Objective - Vital Signs/Intake and Output Vital Signs (last 24 hours): Temp Pulse Resp BP Pulse Ox 98.3 F 76 20 152/95 H 99 02/19/18 16:00 02/19/18 16:00 02/19/18 16:00 02/19/18 16:00 02/19/18 16:00 Intake and Output: 02/19/18 02/19/18 06:59 18:59 Intake Total 2240 700 Output Total 0 Balance 2240 700 - Medications Medications: Current Medications Dextrose (Dextrose 50% Inj) 0 ml IV STAT PRN; Protocol PRN Reason: Hypoglycemia Protocol Dextrose (Glutose 15) 0 gm PO ONCE PRN; Protocol PRN Reason: Hypoglycemia Protocol Glucagon (Glucagen Diagnostic Kit) 0 mg IM STAT PRN; Protocol PRN Reason: Hypoglycemia Protocol Sodium Chloride (Sodium Chloride 0.9%) 1,000 mls @ 100 mls/hr IV .Q10H [facility] Last Admin: 02/19/18 02:59 Dose: 100 mls/hr Metronidazole (Flagyl) 500 mg in 100 mls @ 100 mls/hr IVPB Q8H [facility] PRN Reason: Protocol Last Admin: 02/19/18 15:32 Dose: 100 mls/hr Piperacillin Sod/Tazobactam Sod (Zosyn 3.375 Gm Iv Premix) 3.375 gm in 50 mls @ 100 mls/hr IVPB Q6H [facility] PRN Reason: Protocol Last Admin: 02/19/18 14:19 Dose: 100 mls/hr Dextrose (Dextrose 5% In Water 1000 Ml) 1,000 mls @ 0 mls/hr IV .Q0M PRN; Protocol; Per Protocol PRN Reason: Hypoglycemia Protocol Ondansetron HCl (Zofran Inj) 4 mg IVP Q6 PRN PRN Reason: Nausea/Vomiting Pantoprazole Sodium (Protonix Inj) 40 mg IVP DAILY [facility] Last Admin: 02/19/18 09:33 Dose: 40 mg - Labs Labs: 02/19/18 07:47 02/19/18 07:47 PT 11.5 SECONDS (9.7-12.2) 02/16/18 10:56 INR 1.1 02/16/18 10:56 APTT 33 SECONDS (21-34) 02/16/18 10:56 - Constitutional Appears: Non-toxic, Chronically Ill - Head Exam Head Exam: NORMOCEPHALIC - Eye Exam Eye Exam: PERRL - ENT Exam ENT Exam: Mucous Membranes Dry - Neck Exam Neck Exam: absent: Lymphadenopathy - Respiratory Exam Respiratory Exam: Decreased Breath Sounds - Cardiovascular Exam Cardiovascular Exam: REGULAR RHYTHM - GI/Abdominal Exam GI & Abdominal Exam: Distended, Soft - Rectal Exam Rectal Exam: Deferred - Exam Exam: NORMAL INSPECTION Assessment and Plan (1) Bandemia Status: Acute (2) Enteritis Status: Acute (3) Meckel diverticulum Status: Acute (4) Sepsis Status: Acute - Assessment and Plan (Free Text) Assessment: blood c/s likley a contaminant all other cultures neg but stool OB + will need GI follow up possible d/c on PO Levaquin for 5 days
[2018-02-20] MEDS: Piperacill/Tazo 3.375gm in Dex 3.375 GM/50 ML BAG IVPB SCH ×3 (02:27→14:26)
[2018-02-20] MEDS: Sodium Chloride 0.9% 1,000 ML IV SCH (02:28)
[2018-02-20] MEDS: metroNIDAZOLE IV 500 mg/100 ml 500 MG/100 ML BAG IVPB SCH ×2 (06:13→14:27)
[2018-02-20 06:30] LABS: BASO % 0.2 % (0.0-2.0); EOS # 0.4 K/uL (0.0-0.7); EOS % 5.2 % (0.0-4.0); HEMOGLOBIN 13.2 g/dL (12.0-18.0); LYMPH # 1.5 K/uL (1.0-4.3); LYMPH % 19.6 % (20.0-40.0); MEAN CELL VOLUME 86.9 fL (80.0-94.0); MEAN CORPUSCULAR HEMOGLOBIN 30.3 pg (27.0-31.0); MEAN CORPUSCULAR HGB CONC 34.8 g/dL (33.0-37.0); MONO # 0.6 K/uL (0.0-0.8); MONO % 7.6 % (0.0-10.0); NEUT # 5.3 K/uL (1.8-7.0); NEUT % 67.4 % (50.0-75.0); NRBC % 0.1 % (0.0-2.0); RBC 4.36 Mil/uL (4.40-5.90); RED CELL DISTRIBUTION WIDTH 13.8 % (11.5-14.5); WHITE BLOOD COUNT 7.9 K/uL (4.8-10.8)
[2018-02-20 08:00] LABS: ALB/GLOB RATIO 1.3 (1.0-2.1); ALBUMIN 3.8 g/dL (3.5-5.0); ALT/SGPT 69 U/L (21-72); AST/SGOT 75 U/L (17-59); BLOOD UREA NITROGEN 12 mg/dL (9-20); GFR NON-AFRICAN AMERICAN > 60
[2018-02-20 08:13] VITALS: BP 154/94; PULSE 82; TEMP 98.6
--- NOTE | 2018-02-20 14:26 | CP.PCM.DIS ---
<Constance Maldonado - Last Filed: 02/20/18 19:42> Provider - Provider Date of Admission: 02/16/18 14:07 Attending physician: Elise Choi DO Time Spent in preparation of Discharge (in minutes): 45 Diagnosis - Discharge Diagnosis (1) Enteritis Status: Acute (2) Sepsis Status: Acute Hospital Course - Lab Results Lab Results: Micro Results 02/16/18 15:10 Blood Blood Culture - Preliminary NO GROWTH AFTER 3 DAYS 02/17/18 10:36 Stool Stool Culture - Final NO SALMONELLA, SHIGELLA OR CAMPYLOBACTER ISOLATED. 02/16/18 15:00 Blood Blood Culture - Final Corynebacterium Species 02/16/18 15:00 Blood Gram Stain - Final 02/17/18 10:36 Stool Ova and Parasite Concentrate Exam - Final 02/16/18 15:24 Urine Urine Culture - Final No Growth (<1,000 CFU/ML) Most Recent Lab Values WBC 7.9 K/uL (4.8-10.8) 02/20/18 06:18 RBC 4.36 Mil/uL (4.40-5.90) L 02/20/18 06:18 Hgb 13.2 g/dL (12.0-18.0) 02/20/18 06:18 Hct 37.9 % (35.0-51.0) 02/20/18 06:18 MCV 86.9 fL (80.0-94.0) 02/20/18 06:18 MCH 30.3 pg (27.0-31.0) 02/20/18 06:18 MCHC 34.8 g/dL (33.0-37.0) 02/20/18 06:18 RDW 13.8 % (11.5-14.5) 02/20/18 06:18 Plt Count 330 K/uL (130-400) 02/20/18 06:18 MPV 7.0 fL (7.2-11.7) L 02/20/18 06:18 Neut % (Auto) 67.4 % (50.0-75.0) 02/20/18 06:18 Lymph % (Auto) 19.6 % (20.0-40.0) L 02/20/18 06:18 [place] % (Auto) 7.6 % (0.0-10.0) 02/20/18 06:18 Eos % (Auto) 5.2 % (0.0-4.0) H 02/20/18 06:18 Baso % (Auto) 0.2 % (0.0-2.0) 02/20/18 06:18 Neut # (Auto) 5.3 K/uL (1.8-7.0) 02/20/18 06:18 Lymph # (Auto) 1.5 K/uL (1.0-4.3) 02/20/18 06:18 [place] # (Auto) 0.6 K/uL (0.0-0.8) 02/20/18 06:18 Eos # (Auto) 0.4 K/uL (0.0-0.7) 02/20/18 06:18 Baso # (Auto) 0.0 K/uL (0.0-0.2) 02/20/18 06:18 Neutrophils % (Manual) 53 % (50-75) 02/16/18 10:56 Band Neutrophils % 25 % (0-2) H* 02/16/18 10:56 Lymphocytes % (Manual) 10 % (20-40) L 02/16/18 10:56 Monocytes % (Manual) 12 % (0-10) H 02/16/18 10:56 Platelet Estimate Normal (NORMAL) 02/16/18 10:56 RBC Morphology Normal 02/16/18 10:56 PT 11.5 SECONDS (9.7-12.2) 02/16/18 10:56 INR 1.1 02/16/18 10:56 APTT 33 SECONDS (21-34) 02/16/18 10:56 pO2 26 mm/Hg (30-55) L 02/16/18 18:52 VBG pH 7.31 (7.32-7.43) L 02/16/18 18:52 VBG pCO2 47 mmHg (40-60) 02/16/18 18:52 VBG HCO3 21.1 mmol/L 02/16/18 18:52 VBG Total CO2 25.1 mmol/L (22-28) 02/16/18 18:52 VBG O2 Sat (Calc) 45.9 % (40-65) 02/16/18 18:52 VBG Base Excess -2.9 mmol/L (0.0-2.0) L 02/16/18 18:52 VBG Potassium 4.4 mmol/L (3.6-5.2) 02/16/18 18:52 Sodium 138.0 mmol/l (132-148) 02/16/18 18:52 Chloride 109.0 mmol/L (98-107) H 02/16/18 18:52 Glucose 119 mg/dl (75-110) H 02/16/18 18:52 Lactate 3.1 mmol/L (0.7-2.1) H 02/16/18 18:52 Sodium 141 mmol/L (132-148) 02/20/18 06:18 Potassium 4.2 mmol/L (3.6-5.2) 02/20/18 06:18 Chloride 105 mmol/L (98-107) 02/20/18 06:18 Carbon Dioxide 25 mmol/L (22-30) 02/20/18 06:18 Anion Gap 15 (10-20) 02/20/18 06:18 BUN 12 mg/dL (9-20) 02/20/18 06:18 Creatinine 1.0 mg/dL (0.8-1.5) 02/20/18 06:18 Est GFR ( Amer) > 60 02/20/18 06:18 Est GFR (Non-Af Amer) > 60 02/20/18 06:18 POC Glucose (mg/dL) 133 mg/dL (65-110) H 02/19/18 21:27 Random Glucose 130 mg/dL (75-110) H 02/20/18 06:18 Hemoglobin A1c 5.9 % (4.2-6.5) 02/17/18 06:52 Lactic Acid 1.2 mmol/L (0.7-2.1) 02/17/18 06:52 Calcium 9.0 mg/dl (8.6-10.4) 02/20/18 06:18 Phosphorus 3.4 mg/dL (2.5-4.5) 02/20/18 06:18 Magnesium 2.0 mg/dL (1.6-2.3) 02/20/18 06:18 Total Bilirubin 0.7 mg/dL (0.2-1.3) 02/20/18 06:18 AST 75 U/L (17-59) H D 02/20/18 06:18 ALT 69 U/L (21-72) 02/20/18 06:18 Alkaline Phosphatase 51 U/L (38-126) 02/20/18 06:18 Total Protein 6.7 g/dL (6.3-8.3) 02/20/18 06:18 Albumin 3.8 g/dL (3.5-5.0) 02/20/18 06:18 Globulin 2.9 gm/dL (2.2-3.9) 02/20/18 06:18 Albumin/Globulin Ratio 1.3 (1.0-2.1) 02/20/18 06:18 Triglycerides 180 mg/dL (0-149) H 02/17/18 06:52 Cholesterol 132 mg/dL (0-199) 02/17/18 06:52 LDL Cholesterol Direct 73 mg/dL (0-129) 02/17/18 06:52 HDL Cholesterol 26 mg/dL (30-70) L 02/17/18 06:52 Lipase 55 U/L (23-300) 02/16/18 10:56 Procalcitonin < 0.07 NG/ML (0.19-0.49) L 02/20/18 06:18 Venous Blood Potassium 4.4 mmol/L (3.6-5.2) 02/16/18 18:52 Urine Color Lesley (YELLOW) 02/16/18 10:56 Urine Clarity Hazy (Clear) 02/16/18 10:56 Urine pH 5.0 (5.0-8.0) 02/16/18 10:56 Ur Specific [place] 1.030 (1.003-1.030) 02/16/18 10:56 Urine Protein Negative mg/dL (NEGATIVE) 02/16/18 10:56 Urine Glucose (UA) Normal mg/dL (Normal) 02/16/18 10:56 Urine Ketones Negative mg/dL (NEGATIVE) 02/16/18 10:56 Urine Blood Negative (NEGATIVE) 02/16/18 10:56 Urine Nitrate Negative (NEGATIVE) 02/16/18 10:56 Urine Bilirubin Negative (NEGATIVE) 02/16/18 10:56 Urine Urobilinogen Normal mg/dL (0.2-1.0) 02/16/18 10:56 Ur Leukocyte Esterase Neg Alley/uL (Negative) 02/16/18 10:56 Urine WBC (Auto) 2 /hpf (0-5) 02/16/18 10:56 Urine RBC (Auto) 2 /hpf (0-3) 02/16/18 10:56 Ur Squamous Epith Cells 1 /hpf (0-5) 02/16/18 10:56 Urine Bacteria Rare (<OCC) 02/16/18 10:56 Hyaline Casts 3-5 /lpf (0-2) H 02/16/18 10:56 Stool Occult Blood Positive (NEGATIVE) H 02/17/18 21:47 Stool Leukocytes, Qual Negative (NEGATIVE) 02/17/18 10:36 C. 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 Patient also reports having back pain for the past 2 weeks that has worsened yesterday night, but states that this is not abdominal pain radiating to the back. The abdominal pain started last night before pt went to bed and kept him up all night. Pt's abdominal pain began in the epigast[facility] and this morning moved to [facility]. He denies fatty foods or change in diet. Pt does state that the pain seemed to be worse after eating, but persists despite food intake. Pain was initially rated 10/10, constant, and was not alleviated with the use of over the counter pain medication (pt does not know which OTC medication he took). Patient also reports sweating, nausea, and vomiting six times yesterday. Vomit was green, but nonbloody. He states that he has had similar pain in the past prior to ex lap surgery but this episode is the worst. Admits to nausea, vomiting, chills. Denies constipation, diarrhea, hematuria, dysuria, melena, hematochezia, headache, fevers, palpitations, shortness of breath. 47M was admitted into the emergency department for abdominal pain with associated nausea and vomiting. On admission WBC was 14.3 with bandemia 25, a lactic acid of 4.8, procalcitonin of 4.25 and positive fecal occult blood. CT abdomen/pelvis showed small-bowel enteritis with diverticulosis. CXR showed no active disease. Code sepsis was called in the emergency room for sepsis risk indicated by tachycardia, leukocytosis, and bandemia with elevated lactate and suspected source of infection from enteritis. IVF, Zosyn, and Flagyl were placed as per protocol and patient was admitted under telemetry. Infectious disease, Dr. Tan was consulted given code sepsis. Urine and stool analysis were negative. First blood culture showed Corynebacterium, likely from contamination and second blood culture was negative for growth. Patient placed on Zofran and Pepcid with marked improvement of symptoms. Surgery, Dr. Flaherty was consulted and indicated no surgical intervention at this time. Gastroenterology, Dr. Jessica was consulted and was recommended to continue medical management and was cleared for discharge. Patient's diet was advanced as tolerated, and continued on Zosyn, Flagyl, Zofran, Pepcid, and Toradol. WBC has improved to 7.9, lactate to 1.2, procalcitonin to <0.07. Patient has been cleared for discharge by Dr. Tan with Levoquin 500mg PO QD for 5 days. Infectious disease, gastrointestinal, and general surgery were consulted and their recommendations were appreciated in the care of the patient. Patient is no longer in any acute distress and all symptoms have resolved with no reoccurence. Bowel movements have normalized over the hospitalization. Of note, there was an uptick in LFTs today, however still in normal range; patient should follow up outpatient with PMD. Primary Diagnosis: sepsis, gastroenteritis Patient is stable for discharge per Dr. Choi. Patient is to follow up at the [facility] in 7-10 days to repeat your LFTs and re-establish PMD care - you will need to repeat Hemoglobin A1c in 1 year and outpatient referral for screening colonoscopy due to a positive stool occult blood. If symptoms reoccur or worsen, please come back to the ED. Patient is to restart home blood pressure medications as prescribed. He is also starting an antibiotic , and should take it as prescribed and complete the course: Levofloxacin 500mg 1 tab by mouth per day Patient is to go to the grocery store for probiotic yogurts: Dannon or Activia brands are recommended. Please eat one cup of yogurt each day while you're still on antibiotics. This plan was discussed with the patient who understands and agrees. Written above is a synopsis of the patient's hospital course, please refer to EMR for further details. - Date & Time of H&P Date of H&P: 02/20/18 Time of H&P: 14:00 Discharge Exam - Head Exam Head Exam: ATRAUMATIC, NORMAL INSPECTION, NORMOCEPHALIC - Eye Exam Eye Exam: EOMI, Normal appearance Pupil Exam: NORMAL ACCOMODATION - ENT Exam ENT Exam: Mucous Membranes Moist - Neck Exam Neck exam: Normal Inspection - Respiratory Exam Respiratory Exam: Clear to PA & Lateral, NORMAL BREATHING PATTERN. absent: Rales, Rhonchi, Wheezes, Respiratory Distress, Stridor - Cardiovascular Exam Cardiovascular Exam: REGULAR RHYTHM, RRR, +S1, +S2. absent: JVD, Rubs - GI/Abdominal Exam GI & Abdominal Exam: Normal Bowel Sounds, Soft, Tenderness. absent: Distended, Firm, Guarding, Rebound, Rigid Additional comments: -tenderness to deep palpation in the RLQ - Extremities Exam Extremities exam: normal capillary refill, normal inspection, pedal pulses present Additional comments: L hand IV to be removed prior to discharge - Back Exam Back exam: absent: CVA tenderness (L), CVA tenderness (R), tenderness - Neurological Exam Neurological exam: Alert, Oriented x3 - Psychiatric Exam Psychiatric exam: Normal Affect, Normal Mood - Skin Skin Exam: Dry, Intact, Normal Color, Warm Discharge Plan - Discharge Medications Prescriptions: levoFLOXacin [Levaquin] 500 mg PO DAILY #5 tab - Follow Up Plan Condition: STABLE Disposition: HOME/ ROUTINE Instructions: Heart Healthy Diet, Levofloxacin (Systemic), Probiotics, Tachycardia (DC), Sepsis (DC), Sepsis (GEN), Leukocytosis (DC), Leukocytosis ( GEN) Additional Instructions: Patient is stable for discharge per Dr. Choi. Patient is to follow up at the [facility] in 7-10 days to repeat your LFTs and re-establish PMD care - you will need to repeat Hemoglobin A1c in 1 year and outpatient referral for screening colonoscopy due to a positive stool occult blood. If symptoms reoccur or worsen, please come back to the ED. Patient is to restart home blood pressure medications as prescribed. He is also starting an antibiotic , and should take it as prescribed and complete the course: Levofloxacin 500mg 1 tab by mouth per day Patient is to go to the grocery store for probiotic yogurts: Dannon or Activia brands are recommended. Please eat one cup of yogurt each day while you're still on antibiotics. This plan was discussed with the patient who understands and agrees. Referrals: [facility] [Outside] <Elise Choi V - Last Filed: 02/23/18 13:37> Provider - Provider Date of Admission: 02/16/18 14:07 Attending physician: Elise Choi, Hospital Course - Lab Results Lab Results: Micro Results 02/16/18 15:10 Blood Blood Culture - Final NO GROWTH AFTER 5 DAYS 02/16/18 15:10 Blood Gram Stain - Final TEST NOT PERFORMED 02/17/18 10:36 Stool Stool Culture - Final NO SALMONELLA, SHIGELLA OR CAMPYLOBACTER ISOLATED. 02/16/18 15:00 Blood Blood Culture - Final Corynebacterium Species 02/16/18 15:00 Blood Gram Stain - Final 02/17/18 10:36 Stool Ova and Parasite Concentrate Exam - Final 02/16/18 15:24 Urine Urine Culture - Final No Growth (<1,000 CFU/ML) Most Recent Lab Values WBC 7.9 K/uL (4.8-10.8) 02/20/18 06:18 RBC 4.36 Mil/uL (4.40-5.90) L 02/20/18 06:18 Hgb 13.2 g/dL (12.0-18.0) 02/20/18 06:18 Hct 37.9 % (35.0-51.0) 02/20/18 06:18 MCV 86.9 fL (80.0-94.0) 02/20/18 06:18 MCH 30.3 pg (27.0-31.0) 02/20/18 06:18 MCHC 34.8 g/dL (33.0-37.0) 02/20/18 06:18 RDW 13.8 % (11.5-14.5) 02/20/18 06:18 Plt Count 330 K/uL (130-400) 02/20/18 06:18 MPV 7.0 fL (7.2-11.7) L 02/20/18 06:18 Neut % (Auto) 67.4 % (50.0-75.0) 02/20/18 06:18 Lymph % (Auto) 19.6 % (20.0-40.0) L 02/20/18 06:18 [place] % (Auto) 7.6 % (0.0-10.0) 02/20/18 06:18 Eos % (Auto) 5.2 % (0.0-4.0) H 02/20/18 06:18 Baso % (Auto) 0.2 % (0.0-2.0) 02/20/18 06:18 Neut # (Auto) 5.3 K/uL (1.8-7.0) 02/20/18 06:18 Lymph # (Auto) 1.5 K/uL (1.0-4.3) 02/20/18 06:18 [place] # (Auto) 0.6 K/uL (0.0-0.8) 02/20/18 06:18 Eos # (Auto) 0.4 K/uL (0.0-0.7) 02/20/18 06:18 Baso # (Auto) 0.0 K/uL (0.0-0.2) 02/20/18 06:18 Neutrophils % (Manual) 53 % (50-75) 02/16/18 10:56 Band Neutrophils % 25 % (0-2) H* 02/16/18 10:56 Lymphocytes % (Manual) 10 % (20-40) L 02/16/18 10:56 Monocytes % (Manual) 12 % (0-10) H 02/16/18 10:56 Platelet Estimate Normal (NORMAL) 02/16/18 10:56 RBC Morphology Normal 02/16/18 10:56 PT 11.5 SECONDS (9.7-12.2) 02/16/18 10:56 INR 1.1 02/16/18 10:56 APTT 33 SECONDS (21-34) 02/16/18 10:56 pO2 26 mm/Hg (30-55) L 02/16/18 18:52 VBG pH 7.31 (7.32-7.43) L 02/16/18 18:52 VBG pCO2 47 mmHg (40-60) 02/16/18 18:52 VBG HCO3 21.1 mmol/L 02/16/18 18:52 VBG Total CO2 25.1 mmol/L (22-28) 02/16/18 18:52 VBG O2 Sat (Calc) 45.9 % (40-65) 02/16/18 18:52 VBG Base Excess -2.9 mmol/L (0.0-2.0) L 02/16/18 18:52 VBG Potassium 4.4 mmol/L (3.6-5.2) 02/16/18 18:52 Sodium 138.0 mmol/l (132-148) 02/16/18 18:52 Chloride 109.0 mmol/L (98-107) H 02/16/18 18:52 Glucose 119 mg/dl (75-110) H 02/16/18 18:52 Lactate 3.1 mmol/L (0.7-2.1) H 02/16/18 18:52 Sodium 141 mmol/L (132-148) 02/20/18 06:18 Potassium 4.2 mmol/L (3.6-5.2) 02/20/18 06:18 Chloride 105 mmol/L (98-107) 02/20/18 06:18 Carbon Dioxide 25 mmol/L (22-30) 02/20/18 06:18 Anion Gap 15 (10-20) 02/20/18 06:18 BUN 12 mg/dL (9-20) 02/20/18 06:18 Creatinine 1.0 mg/dL (0.8-1.5) 02/20/18 06:18 Est GFR ( Amer) > 60 02/20/18 06:18 Est GFR (Non-Af Amer) > 60 02/20/18 06:18 POC Glucose (mg/dL) 133 mg/dL (65-110) H 02/19/18 21:27 Random Glucose 130 mg/dL (75-110) H 02/20/18 06:18 Hemoglobin A1c 5.9 % (4.2-6.5) 02/17/18 06:52 Lactic Acid 1.2 mmol/L (0.7-2.1) 02/17/18 06:52 Calcium 9.0 mg/dl (8.6-10.4) 02/20/18 06:18 Phosphorus 3.4 mg/dL (2.5-4.5) 02/20/18 06:18 Magnesium 2.0 mg/dL (1.6-2.3) 02/20/18 06:18 Total Bilirubin 0.7 mg/dL (0.2-1.3) 02/20/18 06:18 AST 75 U/L (17-59) H D 02/20/18 06:18 ALT 69 U/L (21-72) 02/20/18 06:18 Alkaline Phosphatase 51 U/L (38-126) 02/20/18 06:18 Total Protein 6.7 g/dL (6.3-8.3) 02/20/18 06:18 Albumin 3.8 g/dL (3.5-5.0) 02/20/18 06:18 Globulin 2.9 gm/dL (2.2-3.9) 02/20/18 06:18 Albumin/Globulin Ratio 1.3 (1.0-2.1) 02/20/18 06:18 Triglycerides 180 mg/dL (0-149) H 02/17/18 06:52 Cholesterol 132 mg/dL (0-199) 02/17/18 06:52 LDL Cholesterol Direct 73 mg/dL (0-129) 02/17/18 06:52 HDL Cholesterol 26 mg/dL (30-70) L 02/17/18 06:52 Lipase 55 U/L (23-300) 02/16/18 10:56 Procalcitonin < 0.07 NG/ML (0.19-0.49) L 02/20/18 06:18 Venous Blood Potassium 4.4 mmol/L (3.6-5.2) 02/16/18 18:52 Urine Color Lesley (YELLOW) 02/16/18 10:56 Urine Clarity Hazy (Clear) 02/16/18 10:56 Urine pH 5.0 (5.0-8.0) 02/16/18 10:56 Ur Specific [place] 1.030 (1.003-1.030) 02/16/18 10:56 Urine Protein Negative mg/dL (NEGATIVE) 02/16/18 10:56 Urine Glucose (UA) Normal mg/dL (Normal) 02/16/18 10:56 Urine Ketones Negative mg/dL (NEGATIVE) 02/16/18 10:56 Urine Blood Negative (NEGATIVE) 02/16/18 10:56 Urine Nitrate Negative (NEGATIVE) 02/16/18 10:56 Urine Bilirubin Negative (NEGATIVE) 02/16/18 10:56 Urine Urobilinogen Normal mg/dL (0.2-1.0) 02/16/18 10:56 Ur Leukocyte Esterase Neg Alley/uL (Negative) 02/16/18 10:56 Urine WBC (Auto) 2 /hpf (0-5) 02/16/18 10:56 Urine RBC (Auto) 2 /hpf (0-3) 02/16/18 10:56 Ur Squamous Epith Cells 1 /hpf (0-5) 02/16/18 10:56 Urine Bacteria Rare (<OCC) 02/16/18 10:56 Hyaline Casts 3-5 /lpf (0-2) H 02/16/18 10:56 CSF Enterovirus Source Stool 02/18/18 01:13 CSF Enterovirus RNA Qual Not detected (Not Detected) 02/18/18 01:13 Stool Occult Blood Positive (NEGATIVE) H 02/17/18 21:47 Stool Leukocytes, Qual Negative (NEGATIVE) 02/17/18 10:36 C. difficile Ag & Toxin Negative (NEGATIVE) 02/18/18 01:14 Hepatitis A IgM Ab Negative (NEGATIVE) 02/18/18 07:44 Hep Bs Antigen Negative (NEGATIVE) 02/18/18 07:44 Hep B Core IgM Ab Negative (NEGATIVE) 02/18/18 07:44 Hepatitis C Antibody Negative (NEGATIVE) 02/18/18 07:44 HIV 1&2 Antibody Screen Negative (NEGATIVE) 02/18/18 07:44 Attending/Attestation - Attestation I have personally seen and examined this patient.: Yes I have fully participated in the care of the patient.: Yes I have reviewed all pertinent clinical information, including history, physical exam and plan: Yes Notes (Text): This is late computer entry for 02/20/2018 Patient seen, examined, case discussed with diagnostic medical sonographer. Patient reports he seen by GI doctor everything is stable from his standpoint. Patient reports abdominal pain has resolved no change in stool Patient remains afebrile no white count and pro calcitonin has resolved as well. Patient counseled bedside the given positive stool occult blood with the age about 46 he is recommended to see a GI doctor for screening colonoscopy CHET do so given the risk of colon cancer in the future. Patient advised to not eat take out food given that he was recently hosting family members the weekend prior which is likely attributing to his enteritis. Medications upon discharge: * Levofloxacin 500 mg tab once a day for the next 5 days * Patient recommended for [id number] probiotic if he can afford he can take it naturally through yogurt such as Activia and Dannon while he' is on antibiotic. * Patient to continue his statin and his MARILEE inhibitor. * Patient advised to make dietary changes to avoid becoming a overt diabetic, advised to make dietary and lifestyle changes and he will need A1c follow-up. This is a summary of patient's hospitalization. Please see EMR for full detail detail record. Discharge diagnoses 1) Sepsis resolved Assessment/Plan * ID Consulted - Dr. Tan. Help appreciated * Criteria: Tachycardia, leukocytosis, bandemia * Source: Small bowel Enteritis * Code sepsis called in ED - initial lactate 4.8 * Lactate: 4.8-->3.1-->1.2 * IV Flagyl and Zosyn given in ED * Blood culture 1 (02/16/18): Corynebacteria (Final) * Blood culture 2 (02/16/18): No growth at 48 hours * UA and Urine culture (02/16/18): * UA - 3-5 hyaline cysts, no leuk esterase or nitrates * Procalcitonin 02/16 4.25 --> 1.18 --> f/u repeat tomorrow * ABx * Continued Flagyl 500mg IV Q8H (active since 02/16/18) * Continued Zosyn 3.375gm IV Q6H (active since 02/16/18) * Discharge on levofloxacin 500 mg 1 tab a day for 5 days 2) Bacteremia resolved * IV antibiotics to cover for colitis * Continued Flagyl 500mg IV Q8H (active since 02/16/18) * Continued Zosyn 3.375gm IV Q6H (active since 02/16/18) * Blood culture 1 (02/16/18): Corynebacteria (Final) * Blood culture 2 (02/16/18): No growth at 48 hours * Per Dr. Tan: Positive culture for Corynebacteria most likely represents a contaminate, not an actual bacteremia. 3) Small bowel enteritis resolved Assessment/Plan * Infectious Disease (Dr. Tan) information clerk brokerage-->help appreciated * Hemoccult positive will need to follow-up with GI as outpatient for screening colonoscopy * f/u enterovirus * Stool cultures negative (02/17)- (Salmonella, Shigella, Campylobacter) - FINAL * Stool leukocytes negative * Stool Ova and Parasite (02/17) - No ova or parasite seen * C dif negative * Hepatitis panel negative * White count - resolved * General surgery (Dr. Flaherty) on case-->help appreciated * No surgery intervention * Diet advanced to heart healthy diet (solid foods) * Patient reports he was seen and evaluated by GI no further workup for that per their standpoint. * CT Abd/Pelvis (02/16) - "Findings mostly represent small-bowel enteritis. Clinical correlation recommended. No evidence of acute mechanical bowel obstruction. Diverticulosis without radiographic evidence of acute diverticulitis. There appears to be a very small amount of free fluid and infiltration changes within the pelvic mesentery. Multiple small to medium sized lymph nodes seen in the upper abdomen as well as scattered throughout the mesentery. Rule out mesenteric adenitis. Moderate fatty hepatic infiltration. Probable hyperdense renal cyst. Renal US followup could confirm and exclude any solid components." * Patient discharged on by mouth antibiotic. Advised to make dietary changes. 4) Hypertension chronic Assessment/Plan * PO antihypertensive meds held * Monitor vital signs * Resume a on discharge 5) Lipd disorder chronic Assessment/Plan * Lipid panel: T TG, chol: 132, LDL: 73, HDL; 26 * Discussed with patient at bedside, he is aware he needs to commit to diet modifcations and exercise to improve his cholestrol and improve HDL * Resume lovastatin on discharge 6) Tachycardia-->Resolved Assessment/Plan * EKG order to establish baseline; spoke with RNRadha to complete * normalized; normal sinus rhythm 7) Impaired glucose tolerance chronic Assessment/Plan * hgba1c: 5.9 * Hypoglycemia protocol initiated * Discussed with patient he needs to commit to diet modifications and exercise to prevent overt diabetes * Will need repeat A1c in one year to prevent overt diabetes 8) Ppx * DVT PPx: SCDs b/l (1 risk factor for age). * GI: Protonix 40mg IV daily * NS 100cc/hr * liquid diet * d/c telemetry: patient's lactic acid has resolved, hemodynamically stable.
== END 2018-02-20 17:07 | disposition home or self-care (01) | DRG 901 ==
LOC: C.ER 09:58 → C.9E 14:07 → C.5S 22:28
PROVIDERS: ADMIT Hospitalist; ATTEND Hospitalist
DX: A41.9 Sepsis, unspecified organism (principal); E87.2 Acidosis; K92.1 Melena; K52.9 Noninfective gastroenteritis and colitis, unspecified; I10 Essential (primary) hypertension; E78.5 Hyperlipidemia, unspecified; Q43.0 Meckel's diverticulum (displaced) (hypertrophic); N28.1 Cyst of kidney, acquired; K57.90 Diverticulosis of intestine, part unspecified, without perforation or abscess without bleeding; R73.9 Hyperglycemia, unspecified

== ENCOUNTER 2018-05-16 08:42 | Inpatient (IN) | payer OTHER ==
[2018-05-16] MEDS ORDERED: Aspirin 325 mg EC Tablets PO STA (08:58)
[2018-05-16 09:15] LABS: BASO # 0.1 K/uL (0.0-0.2); BASO % 0.6 % (0.0-2.0); EOS # 0.2 K/uL (0.0-0.7); EOS % 2.6 % (0.0-4.0); HEMOGLOBIN 14.6 g/dL (12.0-18.0); LYMPH % 33.3 % (20.0-40.0); MEAN CORPUSCULAR HEMOGLOBIN 29.7 pg (27.0-31.0); MEAN CORPUSCULAR HGB CONC 34.2 g/dL (33.0-37.0); MEAN PLATELET VOLUME 7.2 fL (7.2-11.7); MONO % 10.9 % (0.0-10.0); NEUT # 4.7 K/uL (1.8-7.0); NEUT % 52.6 % (50.0-75.0); NRBC % 0.1 % (0.0-2.0); RBC 4.93 Mil/uL (4.40-5.90); RED CELL DISTRIBUTION WIDTH 14.1 % (11.5-14.5)
[2018-05-16 09:25] LABS: PROTHROMBIN TIME 11.1 SECONDS (9.7-12.2)
--- NOTE | 2018-05-16 09:41 | C.PDOC ---
History Of Present Illness 48 y/o male, with PMHx of HTN, hypercholesterolemia, presents to ED for evaluation of mid sternal chest pain upon waking up this morning. Notes pain occasionally radiates down to his left arm. He admits to feeling nauseous, diaphoretic, and occasionally short of breath. He admits to taking Aspirin today. Pt reports extensive family history of cardiovascular disease. Notes his father at age 44 from [place], and his younger brother also had [place] at age 37. Pt states he had negative stress test 3 years ago. Otherwise, denies vomiting, abdominal pain, dizziness, headache, fever, chills, or any other associated symptoms at this time. Time Seen by Provider: 05/16/18 08:50 Chief Complaint (Nursing): Chest Pain History Per: Patient History/Exam Limitations: no limitations Onset/Duration Of Symptoms: Days Current Symptoms Are (Timing): Still Present Quality: "Pain" Associated Symptoms: Nausea. denies: Syncope Modifying Factors: None Exacerbating Factors: None Alleviating Factors: None Recent travel outside of the [place]: No Additional History Per: Patient Past Medical History Reviewed: Historical Data, Nursing Documentation, Vital Signs Vital Signs: Last Vital Signs Temp 97.7 F 05/16/18 08:58 Pulse 81 05/16/18 09:07 Resp 13 05/16/18 09:07 BP 174/106 H 05/16/18 09:07 Pulse Ox 99 05/16/18 09:07 - Medical History PMH: HTN, Hypercholesterolemia Denies: Chronic Kidney Disease Family History: States: [place] (father and brother) - Social History Hx Alcohol Use: Yes (occasional) Hx Substance Use: No - Immunization History Hx Tetanus Toxoid Vaccination: No Hx Influenza Vaccination: No Hx Pneumococcal Vaccination: No Review Of Systems Except As Marked, All Systems Reviewed And Found Negative. Constitutional: Positive for: Sweats. Negative for: Fever, Chills Cardiovascular: Positive for: Chest Pain. Negative for: Palpitations, Edema, Light Headedness Respiratory: Positive for: Shortness of Breath. Negative for: Cough Gastrointestinal: Positive for: Nausea. Negative for: Vomiting, Abdominal Pain Neurological: Negative for: Headache, Dizziness Physical Exam - Physical Exam Appears: Non-toxic, No Acute Distress Skin: Normal Color, Warm, Dry Head: Atraumatic, Normacephalic Eye(s): bilateral: Normal Inspection Oral Mucosa: Moist Neck: Normal ROM, Supple Chest: Symmetrical, No Tenderness Cardiovascular: Rhythm Regular, No Murmur Respiratory: Normal Breath Sounds, No Accessory Muscle Use, No Rales, No Rhonchi, No Wheezing Gastrointestinal/Abdominal: Soft, No Tenderness Extremity: Normal ROM, No Pedal Edema Neurological/Psych: Oriented x3, Normal Speech ED Course And Treatment - Laboratory Results Result Diagrams: 05/16/18 09:11 05/16/18 09:11 ECG: Interpreted By Me, Viewed By Me ECG Rhythm: Sinus Rhythm Interpretation Of ECG: Flip T's in lateral leads. ST depression in lead V3. No ST elevation. Rate From EC (bpm) O2 Sat by Pulse Oximetry: 99 (on RA) Pulse Ox Interpretation: Normal Medical Decision Making Medical Decision Making: Plan: Blood work CXR EKG Nitroglycerin Aspirin Disposition Discussed With : Ashley Enciso Doctor Will See Patient In The: Hospital Counseled Patient/Family Regarding: Studies Performed - Disposition Disposition: HOSPITALIZED Disposition Time: 10:20 Condition: GUARDED Forms: [employer] ([place]) - Clinical Impression Clinical Impression: Unstable angina - Scribe Statement The provider has reviewed the documentation as recorded by the Scribe Cesar Herzog All medical record entries made by the Scribe were at my direction and personall y dictated by me. I have reviewed the chart and agree that the record accurately reflects my personal performance of the history, physical exam, medical decision making, and the department course for this patient. I have also personally directed, reviewed, and agree with the discharge instructions and disposition. Decision To Admit - Pt Status Changed To: Hospital Disposition Of: Observation - InPatient: Physician Admission Certification: I certify that this patient requires 2 or more midnights of care for the following reason:: unstable angina - . Bed Request Type: Telemetry Patient Diagnosis: Unstable angina
[2018-05-16 10:09] LABS: ALB/GLOB RATIO 1.4 (1.0-2.1); ALBUMIN 4.6 g/dL (3.5-5.0); ALT/SGPT 47 U/L (21-72); AST/SGOT 28 U/L (17-59); BLOOD UREA NITROGEN 22 mg/dL (9-20); CALCIUM 9.4 mg/dl (8.6-10.4); GFR NON-AFRICAN AMERICAN > 60
[2018-05-16 10:13] LABS: B-TYPE NATRIURETIC PEPTIDE < 11.1 pg/mL (0-450)
--- NOTE | 2018-05-16 10:58 | CP.PCM.HP ---
<Neal Hernandez M - Last Filed: 05/16/18 20:00> History of Present Illness - History of Present Illness History of Present Illness: PGY 1 Medicine H&P for Hospitalist Dr. Choi. 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 Pt states the chest pain began this morning as a pressure like sensation 7/10 with radiation to the L axilla. Pt had chills & nausea at the time. Pt denies SOB associated with symptoms. Pt denies recent travel, abdominal pain, headaches, vision changes, dysuria, hematuria, numbness/tinging/pain in all 4 extremities. Pt does state had flu like symptoms 2 weeks prior that was treated w/ OTC symptoms. Since arriving in ED, pt states pain is resolved. Pt received aspirin & nitroglycerin in ED. PMD: [place] PMhx: hypertension, hyperlipidemia, prediabetes, meckel's diverticulum s/p ex lap with partial small bowel resection and simultaneous appendectomy, enteritis Meds: Ramipril 10mg daily; Lovastatin 40mg daily Surgeries: partial small bowel resection and simultaneous appendectomy Allergies: NKDA SHx: denies tobacco use, ETOH occasionally (had about 3-4 beverages the night prior), denies drug use FHx: Father from [place] at 45, brother in 30s with cardiac condition, mother at 47 from [place] Present on Admission - Present on Admission Any Indicators Present on Admission: No Review of Systems - Constitutional Constitutional: absent: Anorexia, Fever, Malaise, Night Sweats - EENT Eyes: absent: Blurred Vision, Discharge - Cardiovascular Cardiovascular: absent: Chest Pain, Chest Pain at Rest, Dyspnea - Respiratory Respiratory: absent: Cough, Dyspnea, Snoring - Gastrointestinal Gastrointestinal: absent: Diarrhea, Loose Stools, Vomiting - Genitourinary Genitourinary: absent: Change in Urinary Stream, Hematuria - Musculoskeletal Musculoskeletal: absent: Abnormal Gait, Muscle Weakness, Myalgias - Neurological Neurological: absent: Abnormal Gait, Abnormal Hearing, Lack of Coordination Past Patient History - Infectious Disease Hx of Infectious Diseases: None - Past Medical History & Family History Past Medical History?: Yes - Past Social History Smoking Status: Never Smoked - CARDIAC Hx Hypercholesterolemia: Yes Hx Hypertension: Yes - PULMONARY Hx Respiratory Disorders: No - NEUROLOGICAL Hx Neurological Disorder: No - HEENT Hx HEENT Problems: No - RENAL Hx Chronic Kidney Disease: No - ENDOCRINE/METABOLIC Hx Endocrine Disorders: No - HEMATOLOGICAL/ONCOLOGICAL Hx Blood Disorders: No - INTEGUMENTARY Hx Dermatological Problems: No - MUSCULOSKELETAL/RHEUMATOLOGICAL Hx Musculoskeletal Disorders: No Hx Falls: No - GASTROINTESTINAL Hx Gastrointestinal Disorders: Yes Other/Comment: meckels diverticulum - GENITOURINARY/GYNECOLOGICAL Hx Genitourinary Disorders: No - PSYCHIATRIC Hx Substance Use: No - SURGICAL HISTORY Hx Surgeries: Yes Other/Comment: meckels diverticulum - ANESTHESIA Hx Anesthesia: Yes Hx Anesthesia Reactions: No Hx Malignant Hyperthermia: No Meds Allergies/Adverse Reactions: Allergies Allergy/AdvReac Type Severity Reaction Status Date / Time No Known Allergies Allergy Verified 02/16/18 10:06 Physical Exam - Constitutional Appears: Non-toxic, No Acute Distress - Head Exam Head Exam: ATRAUMATIC, NORMAL INSPECTION, NORMOCEPHALIC - Eye Exam Eye Exam: EOMI, Normal appearance - ENT Exam ENT Exam: Mucous Membranes Moist - Neck Exam Neck exam: Negative for: Lymphadenopathy, Thyromegaly - Respiratory Exam Respiratory Exam: Clear to Auscultation Bilateral, NORMAL BREATHING PATTERN. absent: Chest Wall Tenderness, Rales, Rhonchi, Wheezes - Cardiovascular Exam Cardiovascular Exam: +S1, +S2. absent: Systolic Murmur - GI/Abdominal Exam GI & Abdominal Exam: Normal Bowel Sounds, Soft. absent: Guarding, Hernia, Rigid, Tenderness - Extremities Exam Extremities exam: Positive for: full ROM, normal inspection. Negative for: calf tenderness, pedal edema - Back Exam Back exam: absent: CVA tenderness (L), CVA tenderness (R) - Neurological Exam Neurological exam: Alert, Oriented x3 - Psychiatric Exam Psychiatric exam: Normal Affect, Normal Mood - Skin Skin Exam: Dry, Intact, Normal Color, Warm Results - Vital Signs Recent Vital Signs: Last Vital Signs Temp 97.7 F 05/16/18 08:58 Pulse 77 05/16/18 10:00 Resp 17 05/16/18 10:00 BP 127/87 05/16/18 10:00 Pulse Ox 99 05/16/18 10:20 - Labs Result Diagrams: 05/16/18 09:11 05/16/18 09:11 Labs: Laboratory Results - last 24 hr 05/16/18 05/16/18 05/16/18 09:11 09:11 09:11 WBC 9.0 RBC 4.93 Hgb 14.6 Hct 42.9 MCV 87.0 MCH 29.7 MCHC 34.2 RDW 14.1 Plt Count 396 MPV 7.2 Neut % (Auto) 52.6 Lymph % (Auto) 33.3 [place] % (Auto) 10.9 H Eos % (Auto) 2.6 Baso % (Auto) 0.6 Neut # (Auto) 4.7 Lymph # (Auto) 3.0 [place] # (Auto) 1.0 H Eos # (Auto) 0.2 Baso # (Auto) 0.1 PT 11.1 INR 1.0 APTT 42 H Sodium 137 Potassium 4.5 Chloride 99 Carbon Dioxide 25 Anion Gap 18 BUN 22 H Creatinine 0.9 Est GFR ( Amer) > 60 Est GFR (Non-Af Amer) > 60 Random Glucose 185 H Calcium 9.4 Total Bilirubin 0.5 AST 28 ALT 47 Alkaline Phosphatase 76 Troponin I < 0.0120 NT-Pro-B Natriuret Pep < 11.1 Total Protein 7.8 Albumin 4.6 Globulin 3.2 Albumin/Globulin Ratio 1.4 Assessment & Plan - Assessment and Plan (Free Text) Assessment: 48 y M w/ PMhx: 47y/o male with past medical history ypertension, hyperlipidemia, prediabetes, meckel's diverticulum s/p ex lap with partial small bowel resection and simultaneous appendectomy, enteritis, presents to ED for chest pain. Chest pain R/o ACS NSTEMI - vital stable - EKG - new T-wave inversion - 2nd trop elevated at 0.9 - F/u Cardio, Dr. Riley licona - lovenox 60 mg BID - NPO midnight on 05/18 for cardiac cath - c/w home medication enalapril 20mg PO daily, aspirin 81 mg Po daily - Start metoprolol succinate 12.5 mg Po daily - F/u HgA1cx (previously on 02/2018 was 5.9) - F/u Free T4, TSH - F/u Echo Hypertension - c/w home medication enalapril 20mg PO daily, aspirin 81 mg Po daily - Start metoprolol succinate 12.5 mg Po daily Hyperlipidemia - Crestor 5 mg Po daily Prediabetes - F/u HgA1cx (previously on 02/2018 was 5.9) Prophylaxis - DVT: theraputic lovenox for NSTEMI - GI: not indicated Dispo: Cardiac cath 05/18, NPO after midnight on 05/18. <Elise Choi Heather - Last Filed: 05/21/18 11:47> Results - Vital Signs Recent Vital Signs: Last Vital Signs Temp 97.9 F 05/19/18 10:13 Pulse 72 05/19/18 10:13 Resp 20 05/19/18 10:13 BP 138/67 05/19/18 10:13 Pulse Ox 99 05/19/18 10:13 - Labs Result Diagrams: 05/19/18 08:33 05/19/18 08:33 Attending/Attestation - Attestation I have personally seen and examined this patient.: Yes I have fully participated in the care of the patient.: Yes I have reviewed all pertinent clinical information: Yes Notes (Text): This is late computer entry for 05/16/18. Patient seen, examined and case discussed with day-time resident. Patient seen in [facility] [place] Bed 4 in the Emergency Room accompanied by family member. Patient with significant cardiac risk factors who comes in for atypical chest complaints. Patient has had a prior hospitalization for enteritis earlier this year as point of clarification in the resident. Admitting orders discussed with resident on admission. Patient seen on admission and re-evaluated in light of positive second troponin. Assessment/Plan 1. Chest pain NSTEMI Abnormal EKG Assessment/Plan * Monitor on telemetry * Cardiology (Dr. Lin) on consult-->help appreciated * Scheduled for Cardiac Cath on 05/18 * patient's ERICA is 4--> 20 percent risk at 14 days of : all-cause mortality, new or recurrent [place], or severe recurrent ischemia requiring urgent revasc ularization * Hypertension, Lipid Disorder, Family Hx of CAD, male, Aspirin, Chest pain complaints, Prediabetic concern for Overt Diabetes * Patient's initial EKG showing T wave inversion in V1 and Lead III this is a change from prior EKG which was NSR. * Patient's second troponin became positive; EKG remained consistent with first EKG * Patient started on therapeutic Lovenox in light of second troponin * Lovenox 60mg subQBID * Patient remained asymptomatic; Nitro sublingual PRN as need for chest pain * C/w Medications: * enalapril 20mg PO daily * aspirin 81 mg Po daily * Start metoprolol succinate 12.5 mg Po daily * Crestor 5mg PO qHS * Check HgA1c (previously on 02/2018 was 5.9) * Check Free T4, TSH * Check Echo 2. Hypertension Assessment/Plan * C/w Medications: * enalapril 20mg PO daily * aspirin 81 mg Po daily * Start metoprolol succinate 12.5 mg Po daily * Crestor 5mg PO qHS * Monitor vital signs * Heart healthy, carb consistent, low sodium diet * Check echocardiogram 3. Hyperlipidemia Assessment/Plan * Crestor 5 mg PO qHS * check lipid panel 4. Impaired Glucose Tolerance Assessment/Plan * Concern for overt diabetes * Check HgA1cx (previously on 02/2018 was 5.9) * C/w charlie inhibitor, statin, aspirin 5. Prophylaxis * DVT PPx: theraputic lovenox for NSTEMI * GI: not indicated Disposition: Cardiac cath 05/18, NPO after midnight on 05/18. Resident has spoken with hydrographic engineer.
--- NOTE | 2018-05-16 12:04 | RAD ---
Date of service: 05/16/2018 PROCEDURE: CHEST RADIOGRAPH, 1 VIEW HISTORY: chest pain COMPARISON: 02/16/2018. FINDINGS: LUNGS: The lungs are well inflated and clear. PLEURA: No pneumothorax or pleural effusion. CARDIOVASCULAR: The heart is normal in size. No aortic atherosclerotic calcifications present. OSSEOUS STRUCTURES: Within normal limits for the patient's age. VISUALIZED UPPER ABDOMEN: Normal. OTHER FINDINGS: None. IMPRESSION: No active pulmonary disease.
[2018-05-16 15:23] LABS: TROPONIN I 0.988 ng/mL (0.00-0.120)
[2018-05-16] MEDS: Metoprolol Succinate 12.5 mg XL Tab PO SCH (15:39)
[2018-05-16] MEDS: Enoxaparin 60 mg Syringe SC SCH (15:43)
[2018-05-16] MEDS ORDERED: Enoxaparin 80 mg Syringe ONE (15:44)
[2018-05-16] MEDS ORDERED: Glucagon Recombinant 1 mg Inj IM PRN (16:20)
[2018-05-16] MEDS ORDERED: Dextrose 50% SYRINGE Inj (50 ml) IV PRN (16:20)
[2018-05-16] MEDS ORDERED: (Novolin R) Insulin Human Regular 100 units/ml vial ONE (18:20)
[2018-05-16] MEDS: (Novolog) Insulin Aspart, Recombinant 100 u/ml 10 ml vial SC SCH ×2 (18:20→21:22)
[2018-05-16 20:46] LABS: CK-MB 19.8 ng/mL (0.0-3.38); TROPONIN I 3.47 ng/mL (0.00-0.120)
[2018-05-17 02:41] LABS: TROPONIN I 2.26 ng/mL (0.00-0.120)
[2018-05-17] MEDS: Enoxaparin 60 mg Syringe SC SCH ×2 (03:30→14:33)
--- NOTE | 2018-05-17 07:34 | CP.PCM.PN ---
<Neal Hernandez M - Last Filed: 05/17/18 22:08> Subjective - Date & Time of Evaluation Date of Evaluation: 05/17/18 Time of Evaluation: 07:10 - Subjective Subjective: PGY1 Medicine Progress Note for Hospitalist Dr. Choi. Patient seen and and examined at bedside. NO acute events reported overnight. Trops began to downtrend. Patient remained asymptomatic. Patient denies chest pain, nausea, vomiting, SOB, abdominal pain, headaches, dysuria, hematuria. Objective - Vital Signs/Intake and Output Vital Signs (last 24 hours): Temp Pulse Resp BP Pulse Ox 97.9 F 72 20 121/79 98 05/16/18 23:10 05/17/18 01:04 05/16/18 23:10 05/16/18 23:10 05/16/18 23:10 - Medications Medications: Current Medications Aspirin (Ecotrin) 81 mg PO DAILY [facility] Dextrose (Dextrose 50% Inj) 0 ml IV STAT PRN; Protocol PRN Reason: Hypoglycemia Protocol Dextrose (Glutose 15) 0 gm PO ONCE PRN; Protocol PRN Reason: Hypoglycemia Protocol Enalapril Maleate (Vasotec) 20 mg PO DAILY [facility] Enoxaparin Sodium (Lovenox) 60 mg SC Q12H [facility] Last Admin: 05/16/18 15:43 Dose: 60 mg Glucagon (Glucagen Diagnostic Kit) 0 mg IM STAT PRN; Protocol PRN Reason: Hypoglycemia Protocol Dextrose (Dextrose 5% In Water 1000 Ml) 1,000 mls @ 0 mls/hr IV .Q0M PRN; Protocol PRN Reason: Hypoglycemia Protocol Influenza Virus Vaccine (Fluzone Quad [id number]) 60 mcg IM .ONCE ONE Stop: 05/19/18 10:01 Insulin Aspart (Novolog) 0 unit SC ACHS [facility]; Protocol Last Admin: 05/16/18 21:22 Dose: Not Given Metoprolol Succinate (Toprol Xl) 12.5 mg PO DAILY [facility] Last Admin: 05/16/18 15:39 Dose: 12.5 mg Nitroglycerin (Nitrostat Sl Tab) 0.4 mg SL Q5M PRN PRN Reason: Pain, severe (8-10) Pneumococcal Polyvalent Vaccine (Pneumovax 23 Vaccine) 0.5 ml IM .ONCE ONE Stop: 05/19/18 10:01 Rosuvastatin Calcium (Crestor) 5 mg PO HS [facility] Last Admin: 05/16/18 21:45 Dose: 5 mg - Labs Labs: 05/16/18 09:11 05/16/18 09:11 PT 11.1 SECONDS (9.7-12.2) 05/16/18 09:11 INR 1.0 05/16/18 09:11 APTT 42 SECONDS (21-34) H 05/16/18 09:11 - Constitutional Appears: Non-toxic, No Acute Distress - Head Exam Head Exam: NORMAL INSPECTION - Eye Exam Eye Exam: Normal appearance Pupil Exam: NORMAL ACCOMODATION - ENT Exam ENT Exam: Mucous Membranes Moist - Respiratory Exam Respiratory Exam: Clear to Ausculation Bilateral, NORMAL BREATHING PATTERN. absent: Rales, Rhonchi, Wheezes - Cardiovascular Exam Cardiovascular Exam: +S1, +S2 - GI/Abdominal Exam GI & Abdominal Exam: Soft, Normal Bowel Sounds. absent: Firm, Guarding, Rigid - Extremities Exam Extremities Exam: Full ROM, Normal Inspection. absent: Calf Tenderness, Pedal Edema - Back Exam Back Exam: absent: CVA tenderness (L), CVA tenderness (R) - Neurological Exam Neurological Exam: Alert, Awake, Oriented x3 - Psychiatric Exam Psychiatric exam: Normal Affect, Normal Mood - Skin Skin Exam: Dry, Intact, Normal Color, Warm Assessment and Plan - Assessment and Plan (Free Text) Assessment: 48 y M w/ PMhx: 47y/o male with past medical history ypertension, hyperlipidemia, prediabetes, meckel's diverticulum s/p ex lap with partial small bowel resection and simultaneous appendectomy, enteritis, presents to ED for chest pain. NSTEMI - vitals stable - EKG - new T-wave inversion - trops elevated to 3.47, now down trended to 2.2 - F/u Cardio, Dr. Riley licona - lovenox 60 mg BID - NPO midnight on 05/18 for cardiac cath - c/w home medication enalapril 20mg PO daily, aspirin 81 mg Po daily - Start metoprolol succinate 12.5 mg Po daily - HgA1c 6.3 (previously on 02/2018 was 5.9) - TGs 600s, HDLs 20s, LDLs 80s - Free T4, TSH WNL - F/u Echo History of Hypertension - c/w home medication enalapril 20mg PO daily, aspirin 81 mg Po daily - Start metoprolol succinate 12.5 mg Po daily History of Hyperlipidemia - TGs 600s, HDLs 20s, LDLs 80s - Crestor 5 mg PO daily (home dose) - consider increasing dose History of Prediabetes - HgA1c 6.3 (previously on 02/2018 was 5.9) - patient education on Prophylaxis - DVT: theraputic lovenox for NSTEMI - held @ midnight - GI: not indicated Dispo: Cardiac cath 05/18 w/ Dr Lin, NPO after midnight on 05/18. Lovenox helad at midnight on 05/18. <Elise Choi V - Last Filed: 05/21/18 11:54> Objective - Vital Signs/Intake and Output Vital Signs (last 24 hours): Temp Pulse Resp BP Pulse Ox 97.9 F 72 20 138/67 99 05/19/18 10:13 05/19/18 10:13 05/19/18 10:13 05/19/18 10:13 05/19/18 10:13 - Labs Labs: 05/19/18 08:33 05/19/18 08:33 PT 11.7 SECONDS (9.7-12.2) 05/19/18 08:33 INR 1.1 05/19/18 08:33 APTT 39 SECONDS (21-34) H 05/19/18 08:33 Attending/Attestation - Attestation I have personally seen and examined this patient.: Yes I have fully participated in the care of the patient.: Yes I have reviewed all pertinent clinical information, including history, physical exam and plan: Yes Notes (Text): This is late computer entry for 05/17/18. Patient seen, examined, and case discussed with day-time resident. Patient seen in the afternoon, accompanied with family members and family friends. patient gave me permission to talk about his history in front of his family. Patient's troponin had uptrended later day prior and started to down trend today. Patient with significant cardiac risk for further evaluation for cardiac cath for tomorrow. Patient strongly advised to initiate lifestyle and exercise modifications. Lipid panel is abnormal and a1c has worsened since last hospitalization. Scheduled for cardiac cath in the morning. 1. Chest pain NSTEMI Abnormal EKG Assessment/Plan * Monitor on telemetry * Cardiology (Dr. Lin) on consult-->help appreciated * Scheduled for Cardiac Cath on 05/18 * patient's ERICA is 4--> 20 percent risk at 14 days of : all-cause mortality, new or recurrent [place], or severe recurrent ischemia requiring urgent revascularization * Hypertension, Lipid Disorder, Family Hx of CAD, male, Aspirin, Chest pain complaints, Prediabetic concern for Overt Diabetes * Patient's initial EKG showing T wave inversion in V1 and Lead III this is a change from prior EKG which was NSR. * Patient's second troponin became positive; EKG remained consistent with first EKG * Patient started on therapeutic Lovenox in light of second troponin * Lovenox 60mg subQBID * Patient remained asymptomatic; Nitro sublingual PRN as need for chest pain * C/w Medications: * enalapril 20mg PO daily * aspirin 81 mg Po daily * Start metoprolol succinate 12.5 mg Po daily * Crestor 5mg PO qHS * HgA1c: 6.3 * Check Echo 2. Hypertension Assessment/Plan * C/w Medications: * enalapril 20mg PO daily * aspirin 81 mg Po daily * Start metoprolol succinate 12.5 mg Po daily * Crestor 5mg PO qHS * Monitor vital signs * Heart healthy, carb consistent, low sodium diet * Check echocardiogram 3. Hyperlipidemia Assessment/Plan * Crestor 5 mg PO qHS * Abnormal lipid panel 4. Impaired Glucose Tolerance Assessment/Plan * Concern for overt diabetes * Worsened to 6.3 * C/w charlie inhibitor, statin, aspirin 5. Prophylaxis * DVT PPx: theraputic lovenox for NSTEMI * GI: not indicated Disposition: Cardiac cath 05/18, NPO after midnight on 05/18. Resident has spoken with budget consultant.
[2018-05-17 07:36] LABS: BASO # 0.1 K/uL (0.0-0.2); BASO % 0.8 % (0.0-2.0); EOS # 0.3 K/uL (0.0-0.7); EOS % 3.7 % (0.0-4.0); LYMPH # 2.6 K/uL (1.0-4.3); MEAN CELL VOLUME 88.4 fL (80.0-94.0); MEAN CORPUSCULAR HEMOGLOBIN 29.9 pg (27.0-31.0); MEAN CORPUSCULAR HGB CONC 33.8 g/dL (33.0-37.0); MEAN PLATELET VOLUME 7.4 fL (7.2-11.7); MONO # 0.5 K/uL (0.0-0.8); NEUT # 3.4 K/uL (1.8-7.0); NEUT % 50.5 % (50.0-75.0); NRBC % 0.1 % (0.0-2.0); RBC 4.68 Mil/uL (4.40-5.90); RED CELL DISTRIBUTION WIDTH 13.9 % (11.5-14.5); WHITE BLOOD COUNT 6.8 K/uL (4.8-10.8)
[2018-05-17 08:02] LABS: ALB/GLOB RATIO 1.3 (1.0-2.1); ALT/SGPT 49 U/L (21-72); AST/SGOT 41 U/L (17-59); BLOOD UREA NITROGEN 18 mg/dL (9-20); CALCIUM 9.1 mg/dl (8.6-10.4); GFR NON-AFRICAN AMERICAN > 60; HDL CHOLESTEROL 23 mg/dL (30-70); LDL CHOLESTEROL 86 mg/dL (0-129)
[2018-05-17] MEDS: (Novolog) Insulin Aspart, Recombinant 100 u/ml 10 ml vial SC SCH ×4 (08:25→22:16)
[2018-05-17] MEDS: Metoprolol Succinate 12.5 mg XL Tab PO SCH (09:00)
[2018-05-17] MEDS ORDERED: Enoxaparin 40 mg Syringe SC SCH (10:00)
[2018-05-18 00:30] VITALS: RESP 20
[2018-05-18 07:41] LABS: BASO % 0.7 % (0.0-2.0); EOS # 0.2 K/uL (0.0-0.7); EOS % 3.4 % (0.0-4.0); HEMOGLOBIN 14.3 g/dL (12.0-18.0); LYMPH # 2.6 K/uL (1.0-4.3); LYMPH % 38.3 % (20.0-40.0); MEAN CELL VOLUME 88.6 fL (80.0-94.0); MEAN CORPUSCULAR HEMOGLOBIN 30.3 pg (27.0-31.0); MEAN CORPUSCULAR HGB CONC 34.2 g/dL (33.0-37.0); MEAN PLATELET VOLUME 7.2 fL (7.2-11.7); MONO # 0.5 K/uL (0.0-0.8); MONO % 7.1 % (0.0-10.0); NEUT # 3.4 K/uL (1.8-7.0); NEUT % 50.5 % (50.0-75.0); RBC 4.73 Mil/uL (4.40-5.90); RED CELL DISTRIBUTION WIDTH 13.8 % (11.5-14.5); WHITE BLOOD COUNT 6.7 K/uL (4.8-10.8)
[2018-05-18 08:08] LABS: ALB/GLOB RATIO 1.3 (1.0-2.1); ALBUMIN 4.1 g/dL (3.5-5.0); ALT/SGPT 47 U/L (21-72); AST/SGOT 31 U/L (17-59); BLOOD UREA NITROGEN 18 mg/dL (9-20); CALCIUM 9.1 mg/dl (8.6-10.4); GFR NON-AFRICAN AMERICAN > 60
[2018-05-18] MEDS: (Novolog) Insulin Aspart, Recombinant 100 u/ml 10 ml vial SC SCH ×3 (08:29→18:27)
--- NOTE | 2018-05-18 08:36 | CP.PCM.PN ---
<Neal Hernandez - Last Filed: 05/18/18 16:10> Subjective - Date & Time of Evaluation Date of Evaluation: 05/18/18 Time of Evaluation: 07:20 - Subjective Subjective: PGY 1 Medicine Progress Note for hospitalist Dr. Srikanth Herzog. Patient seen and examined at bedside. Overnight patient had 1 episode of 4/10, non radiating, pressure pain in chest. No SOB, nausea, vomiting, headaches reported. Vitals wnl. 1 X nitroglycerin give. Patient reported resolution of symptoms. Questioning this morning, patient reported the pain occured following eating a dinner and laying down. Patient advised to walk 15 mins after meals as the pain could have been due to heart burn. This morning patient had no complaints. Patient denies SOB, nausea, vomiting, abdominal pain, headaches, vision changes, dysuria, hematuria. Patient is scheduled for cardiac cath with Dr. Lin today @ 11am. Objective - Vital Signs/Intake and Output Vital Signs (last 24 hours): Temp Pulse Resp BP Pulse Ox 97.2 F L 74 20 127/86 99 05/18/18 07:00 05/18/18 07:00 05/18/18 07:00 05/18/18 07:00 05/18/18 07:00 - Medications Medications: Current Medications Aspirin (Ecotrin) 81 mg PO DAILY [facility] Last Admin: 05/17/18 09:02 Dose: 81 mg Dextrose (Dextrose 50% Inj) 0 ml IV STAT PRN; Protocol PRN Reason: Hypoglycemia Protocol Dextrose (Glutose 15) 0 gm PO ONCE PRN; Protocol PRN Reason: Hypoglycemia Protocol Enalapril Maleate (Vasotec) 20 mg PO DAILY [facility] Last Admin: 05/17/18 08:59 Dose: 20 mg Enoxaparin Sodium (Lovenox) 60 mg SC Q12H [facility] Last Admin: 05/17/18 14:33 Dose: 60 mg Glucagon (Glucagen Diagnostic Kit) 0 mg IM STAT PRN; Protocol PRN Reason: Hypoglycemia Protocol Dextrose (Dextrose 5% In Water 1000 Ml) 1,000 mls @ 0 mls/hr IV .Q0M PRN; Protocol PRN Reason: Hypoglycemia Protocol Influenza Virus Vaccine (Fluzone Quad [id number]) 60 mcg IM .ONCE ONE Stop: 05/19/18 10:01 Insulin Aspart (Novolog) 0 unit SC [facility]; Protocol Last Admin: 05/18/18 08:29 Dose: Not Given Metoprolol Succinate (Toprol Xl) 12.5 mg PO DAILY [facility] Last Admin: 05/17/18 09:00 Dose: 12.5 mg Nitroglycerin (Nitrostat Sl Tab) 0.4 mg SL Q5M PRN PRN Reason: Pain, severe (8-10) Last Admin: 05/17/18 21:54 Dose: 0.4 mg Pneumococcal Polyvalent Vaccine (Pneumovax 23 Vaccine) 0.5 ml IM .ONCE ONE Stop: 05/19/18 10:01 Rosuvastatin Calcium (Crestor) 5 mg PO [facility] Last Admin: 05/17/18 21:32 Dose: 5 mg - Labs Labs: 05/18/18 07:35 05/18/18 07:35 PT 11.1 SECONDS (9.7-12.2) 05/16/18 09:11 INR 1.0 05/16/18 09:11 APTT 42 SECONDS (21-34) H 05/16/18 09:11 - Constitutional Appears: Non-toxic, No Acute Distress - Head Exam Head Exam: NORMAL INSPECTION - Eye Exam Eye Exam: Normal appearance Pupil Exam: NORMAL ACCOMODATION - ENT Exam ENT Exam: Mucous Membranes Moist - Neck Exam Neck Exam: absent: Thyromegaly - Respiratory Exam Respiratory Exam: Clear to Ausculation Bilateral, NORMAL BREATHING PATTERN. absent: Rales, Rhonchi, Wheezes - Cardiovascular Exam Cardiovascular Exam: +S1, +S2. absent: Murmur - GI/Abdominal Exam GI & Abdominal Exam: Soft, Normal Bowel Sounds. absent: Firm, Guarding, Rigid - Extremities Exam Extremities Exam: Full ROM, Normal Inspection. absent: Calf Tenderness, Pedal Edema - Back Exam Back Exam: absent: CVA tenderness (L), CVA tenderness (R) - Neurological Exam Neurological Exam: Alert, Awake, Oriented x3 - Psychiatric Exam Psychiatric exam: Normal Affect, Normal Mood - Skin Skin Exam: Dry, Intact, Normal Color, Warm Assessment and Plan - Assessment and Plan (Free Text) Assessment: 48 y M w/ PMhx: 47y/o male with past medical history ypertension, hyp erlipidemia, prediabetes, meckel's diverticulum s/p ex lap with partial small bowel resection and simultaneous appendectomy, enteritis, presents to ED for chest pain, found to have NSTEMI w trops in 3s, new EKG changes, no ST elevations, scheduled for cardiac cath on 05/18. NSTEMI - vitals stable - EKG - new T-wave inversion - trops elevated to 3.47, now down trended to 2.2 - F/u Cardio, Dr. Lin recs - lovenox 60 mg BID held today 05/18 for cardiac cath - NPO today 05/18 for cardiac cath - plavix 75 mg daily after cath - crestor 40 mg daily after cath - c/w home medication enalapril 20mg PO daily, aspirin 81 mg Po daily - Start metoprolol succinate 12.5 mg Po daily - HgA1c 6.3 (previously on 02/2018 was 5.9) - TGs 600s, HDLs 20s, LDLs 80s - Free T4, TSH WNL - F/u Echo read History of Hypertension - c/w home medication enalapril 20mg PO daily, aspirin 81 mg Po daily - Start metoprolol succinate 12.5 mg Po daily History of Hyperlipidemia - TGs 600s, HDLs 20s, LDLs 80s - increased crestor to 40mg daily per cardio (increased on 05/18) History of Prediabetes - HgA1c 6.3 (previously on 02/2018 was 5.9) - patient education on diabetic diet Prophylaxis - DVT: theraputic lovenox for NSTEMI - held @ midnight - GI: not indicated Dispo: Cardiac cath 05/18 w/ Dr Lin. <Misha Herzog - Last Filed: 06/02/18 10:57> Objective - Vital Signs/Intake and Output Vital Signs (last 24 hours): Temp Pulse Resp BP Pulse Ox 97.9 F 72 20 138/67 99 05/19/18 10:13 05/19/18 10:13 05/19/18 10:13 05/19/18 10:13 05/19/18 10:13 - Labs Labs: 05/19/18 08:33 05/19/18 08:33 PT 11.7 SECONDS (9.7-12.2) 05/19/18 08:33 INR 1.1 05/19/18 08:33 APTT 39 SECONDS (21-34) H 05/19/18 08:33 Attending/Attestation - Attestation I have personally seen and examined this patient.: Yes I have fully participated in the care of the patient.: Yes I have reviewed all pertinent clinical information, including history, physical exam and plan: Yes Notes (Text): 06/02/18 10:57 This is a late entry. Care of this patient was gone over in detail with resident Dr. Hernandez. Misha Herzog D.O.
--- NOTE | 2018-05-18 09:14 | CP.PCM.CON ---
<Ankur Daniels - Last Filed: 05/18/18 16:52> History of Present Illness - History of Present Illness History of Present Illness: Ankur Daniels DO, PGY-1 Cardiology Consultation Note for Dr. Lin Mr. Valero is a 48 year old male with PMH of HTN, HLD, Meckel's diverticulum and enteritis who presented to ED on 128 in AM with mid-sternal burning chest pain that started when he awoke that morning. He also admitted to feeling diaphoretic, light-headed, and nauseated at the time. He admitted that the pain radiated down his left arm. He immediately took an aspirin and reported to ED for evaluation. On admission, troponins were initially negative but later became positive without ST or T wave changes on EKG. Mr. Valero did not continue to complain of chest pain as he reported that after receiving NG in ED, the chest pain resolved. This AM, he reports chest pain has improved since admission. He is scheduled for left heart cath this AM. PMD: [place] PMH: HTN, HLD, Meckel's diverticulum and enteritis Home Meds: Ramipril 10mg daily; Lovastatin 40mg daily PSH: partial small bowel resection with simultaneous appendectomy Allergies: NKDA Soc Hx: denies tobacco or illicit drug use, admits to social alcohol use, did admit to drinking the night prior to chest pain Fam Hx: Positive for family history of premature cardiac in father and brother, mother at 47 from CVA Review of Systems - Constitutional Constitutional: absent: Chills, Fever - EENT Eyes: absent: Blurred Vision, Dry Eye - Cardiovascular Cardiovascular: absent: Chest Pain, Chest Pain at Rest, Chest Pain with Activity, Diaphoresis, Dyspnea, Dyspnea on Exertion, Palpitations - Respiratory Respiratory: absent: Cough, Dyspnea - Gastrointestinal Gastrointestinal: absent: Abdominal Pain, Nausea, Vomiting - Genitourinary Genitourinary: absent: Change in Urinary Stream - Neurological Neurological: absent: Disequilibrium, Dizziness, Headaches, Syncope - Psychiatric Psychiatric: Anxiety Past Patient History - Infectious Disease Hx of Infectious Diseases: None - Past Medical History & Family History Past Medical History?: Yes - Past Social History Smoking Status: Never Smoked - CARDIAC Hx Hypercholesterolemia: Yes Hx Hypertension: Yes - PULMONARY Hx Respiratory Disorders: No - NEUROLOGICAL Hx Neurological Disorder: No - HEENT Hx HEENT Problems: No - RENAL Hx Chronic Kidney Disease: No - ENDOCRINE/METABOLIC Hx Endocrine Disorders: No - HEMATOLOGICAL/ONCOLOGICAL Hx Blood Disorders: No - INTEGUMENTARY Hx Dermatological Problems: No - MUSCULOSKELETAL/RHEUMATOLOGICAL Hx Musculoskeletal Disorders: No Hx Falls: No - GASTROINTESTINAL Hx Gastrointestinal Disorders: Yes Other/Comment: meckels diverticulum - GENITOURINARY/GYNECOLOGICAL Hx Genitourinary Disorders: No - PSYCHIATRIC Hx Substance Use: No - SURGICAL HISTORY Hx Surgeries: Yes Other/Comment: meckels diverticulum - ANESTHESIA Hx Anesthesia: Yes Hx Anesthesia Reactions: No Hx Malignant Hyperthermia: No Meds Allergies/Adverse Reactions: Allergies Allergy/AdvReac Type Severity Reaction Status Date / Time No Known Allergies Allergy Verified 02/16/18 10:06 - Medications Medications: Current Medications Aspirin (Ecotrin) 81 mg PO DAILY [facility] Last Admin: 05/17/18 09:02 Dose: 81 mg Dextrose (Dextrose 50% Inj) 0 ml IV STAT PRN; Protocol PRN Reason: Hypoglycemia Protocol Dextrose (Glutose 15) 0 gm PO ONCE PRN; Protocol PRN Reason: Hypoglycemia Protocol Enalapril Maleate (Vasotec) 20 mg PO DAILY [facility] Last Admin: 05/17/18 08:59 Dose: 20 mg Enoxaparin Sodium (Lovenox) 60 mg SC Q12H [facility] Last Admin: 05/17/18 14:33 Dose: 60 mg Glucagon (Glucagen Diagnostic Kit) 0 mg IM STAT PRN; Protocol PRN Reason: Hypoglycemia Protocol Dextrose (Dextrose 5% In Water 1000 Ml) 1,000 mls @ 0 mls/hr IV .Q0M PRN; Protocol PRN Reason: Hypoglycemia Protocol Influenza Virus Vaccine (Fluzone Quad [id number]) 60 mcg IM .ONCE ONE Stop: 05/19/18 10:01 Insulin Aspart (Novolog) 0 unit SC [facility]; Protocol Last Admin: 05/18/18 08:29 Dose: Not Given Metoprolol Succinate (Toprol Xl) 12.5 mg PO DAILY [facility] Last Admin: 05/17/18 09:00 Dose: 12.5 mg Nitroglycerin (Nitrostat Sl Tab) 0.4 mg SL Q5M PRN PRN Reason: Pain, severe (8-10) Last Admin: 05/17/18 21:54 Dose: 0.4 mg Pneumococcal Polyvalent Vaccine (Pneumovax 23 Vaccine) 0.5 ml IM .ONCE ONE Stop: 05/19/18 10:01 Rosuvastatin Calcium (Crestor) 5 mg PO HS [facility] Last Admin: 05/17/18 21:32 Dose: 5 mg Physical Exam - Constitutional Appears: Non-toxic, No Acute Distress - Head Exam Head Exam: ATRAUMATIC, NORMOCEPHALIC - Eye Exam Eye Exam: EOMI, Normal appearance, PERRL - ENT Exam ENT Exam: Mucous Membranes Moist - Neck Exam Neck exam: Positive for: Full Rom, Normal Inspection - Respiratory Exam Respiratory Exam: Clear to Auscultation Bilateral, NORMAL BREATHING PATTERN. absent: Rales, Rhonchi, Wheezes - Cardiovascular Exam Cardiovascular Exam: REGULAR RHYTHM, RRR, +S1, +S2. absent: Diastolic murmur, Gallop, Rubs, Systolic Murmur - GI/Abdominal Exam GI & Abdominal Exam: Normal Bowel Sounds, Soft. absent: Guarding, Rebound, Tenderness - Extremities Exam Extremities exam: Positive for: normal inspection. Negative for: pedal edema - Back Exam Back exam: FULL ROM, NORMAL INSPECTION - Neurological Exam Neurological exam: Alert, Oriented x3 - Psychiatric Exam Psychiatric exam: Normal Affect, Normal Mood - Skin Skin Exam: Dry, Intact, Warm Results - Vital Signs Recent Vital Signs: Last Vital Signs Temp 97.2 F L 05/18/18 07:00 Pulse 85 05/18/18 08:00 Resp 20 05/18/18 07:00 BP 127/86 05/18/18 07:00 Pulse Ox 99 05/18/18 07:00 - Labs Result Diagrams: 05/18/18 07:35 05/18/18 07:35 Labs: Laboratory Results - last 24 hr 05/16/18 05/17/18 05/17/18 09:11 10:52 16:29 WBC RBC Hgb Hct MCV MCH MCHC RDW Plt Count MPV Neut % (Auto) Lymph % (Auto) [place] % (Auto) Eos % (Auto) Baso % (Auto) Neut # (Auto) Lymph # (Auto) [place] # (Auto) Eos # (Auto) Baso # (Auto) Sodium Potassium Chloride Carbon Dioxide Anion Gap BUN Creatinine Est GFR ( Amer) Est GFR (Non-Af Amer) POC Glucose (mg/dL) 228 H 135 H Random Glucose Hemoglobin A1c 6.3 Calcium Total Bilirubin AST ALT Alkaline Phosphatase Total Protein Albumin Globulin Albumin/Globulin Ratio 05/17/18 05/18/18 05/18/18 21:02 06:08 07:35 WBC 6.7 RBC 4.73 Hgb 14.3 Hct 41.9 MCV 88.6 MCH 30.3 MCHC 34.2 RDW 13.8 Plt Count 366 MPV 7.2 Neut % (Auto) 50.5 Lymph % (Auto) 38.3 [place] % (Auto) 7.1 Eos % (Auto) 3.4 Baso % (Auto) 0.7 Neut # (Auto) 3.4 Lymph # (Auto) 2.6 [place] # (Auto) 0.5 Eos # (Auto) 0.2 Baso # (Auto) 0.0 Sodium Potassium Chloride Carbon Dioxide Anion Gap BUN Creatinine Est GFR ( Amer) Est GFR (Non-Af Amer) POC Glucose (mg/dL) 190 H 142 H Random Glucose Hemoglobin A1c Calcium Total Bilirubin AST ALT Alkaline Phosphatase Total Protein Albumin Globulin Albumin/Globulin Ratio 05/18/18 07:35 WBC RBC Hgb Hct MCV MCH MCHC RDW Plt Count MPV Neut % (Auto) Lymph % (Auto) [place] % (Auto) Eos % (Auto) Baso % (Auto) Neut # (Auto) Lymph # (Auto) [place] # (Auto) Eos # (Auto) Baso # (Auto) Sodium 136 Potassium 4.7 Chloride 100 Carbon Dioxide 27 Anion Gap 14 BUN 18 Creatinine 0.9 Est GFR ( Amer) > 60 Est GFR (Non-Af Amer) > 60 POC Glucose (mg/dL) Random Glucose 153 H Hemoglobin A1c Calcium 9.1 Total Bilirubin 0.8 AST 31 ALT 47 Alkaline Phosphatase 83 Total Protein 7.3 Albumin 4.1 Globulin 3.1 Albumin/Globulin Ratio 1.3 Assessment & Plan - Assessment and Plan (Free Text) Assessment: 48 yo M with PMH of HTN, HLD, Meckel's diverticulum and enteritis presented to ED with chest pain found to have NSTEMI. Plan: NSTEMI Plan for left heart cath this afternoon Continue therapeutic lovenox, ASA 81 mg daily, metoprolol succinate 12.5 mg daily Will also need to begin zetia 10 mg and increase crestor to 40 mg daily Will f/u TTE results after cath Hx HTN Continue enalapril, metoprolol succinate Hx HLD Will start high intensity statin therapy with crestor 40 mg daily after cath Case and plan were reviewed and discussed with my attending Dr. Riley Daniels, DO IM Resident PGY-1 <Rajan Lin - Last Filed: 05/19/18 16:03> Meds - Medications Medications: Current Medications Aspirin (Ecotrin) 81 mg PO DAILY [facility] Last Admin: 05/19/18 09:16 Dose: 81 mg Dextrose (Dextrose 50% Inj) 0 ml IV STAT PRN; Protocol PRN Reason: Hypoglycemia Protocol Dextrose (Glutose 15) 0 gm PO ONCE PRN; Protocol PRN Reason: Hypoglycemia Protocol Ezetimibe (Zetia) 10 mg PO DAILY [facility] Last Admin: 05/19/18 09:18 Dose: Not Given Enalapril Maleate (Vasotec) 20 mg PO DAILY [facility] Last Admin: 05/19/18 09:16 Dose: 20 mg Enoxaparin Sodium (Lovenox) 60 mg SC Q12H [facility] Last Admin: 05/17/18 14:33 Dose: 60 mg Glucagon (Glucagen Diagnostic Kit) 0 mg IM STAT PRN; Protocol PRN Reason: Hypoglycemia Protocol Dextrose (Dextrose 5% In Water 1000 Ml) 1,000 mls @ 0 mls/hr IV .Q0M PRN; Protocol PRN Reason: Hypoglycemia Protocol Influenza Virus Vaccine (Fluzone Quad [id number]) 60 mcg IM .ONCE ONE Stop: 05/20/18 10:01 Insulin Aspart (Novolog) 0 unit SC [facility]; Protocol Last Admin: 05/19/18 11:26 Dose: Not Given Metoprolol Succinate (Toprol Xl) 12.5 mg PO DAILY [facility] Last Admin: 05/19/18 09:16 Dose: 12.5 mg Nitroglycerin (Nitrostat Sl Tab) 0.4 mg SL Q5M PRN PRN Reason: Pain, severe (8-10) Last Admin: 05/17/18 21:54 Dose: 0.4 mg Pneumococcal Polyvalent Vaccine (Pneumovax 23 Vaccine) 0.5 ml IM .ONCE ONE Stop: 05/20/18 10:01 Rosuvastatin Calcium (Crestor) 40 mg PO HS [facility] Last Admin: 05/18/18 21:31 Dose: 40 mg Results - Vital Signs Recent Vital Signs: Last Vital Signs Temp 97.9 F 05/19/18 10:13 Pulse 72 05/19/18 10:13 Resp 20 05/19/18 10:13 BP 138/67 05/19/18 10:13 Pulse Ox 99 05/19/18 10:13 - Labs Result Diagrams: 05/19/18 08:33 05/19/18 08:33 Labs: Laboratory Results - last 24 hr 05/18/18 05/18/18 05/19/18 17:53 21:27 02:05 WBC RBC Hgb Hct MCV MCH MCHC RDW Plt Count MPV Neut % (Auto) Lymph % (Auto) [place] % (Auto) Eos % (Auto) Baso % (Auto) Neut # (Auto) Lymph # (Auto) [place] # (Auto) Eos # (Auto) Baso # (Auto) PT INR APTT Sodium Potassium Chloride Carbon Dioxide Anion Gap BUN Creatinine Est GFR ( Amer) Est GFR (Non-Af Amer) POC Glucose (mg/dL) 101 94 117 H Random Glucose Calcium Total Bilirubin AST ALT Alkaline Phosphatase Total Protein Albumin Globulin Albumin/Globulin Ratio 05/19/18 05/19/18 05/19/18 06:27 08:33 08:33 WBC 7.8 RBC 4.79 Hgb 14.6 Hct 41.9 MCV 87.5 MCH 30.5 MCHC 34.9 RDW 13.6 Plt Count 367 MPV 7.4 Neut % (Auto) 64.3 Lymph % (Auto) 26.2 [place] % (Auto) 6.3 Eos % (Auto) 2.5 Baso % (Auto) 0.7 Neut # (Auto) 5.0 Lymph # (Auto) 2.1 [place] # (Auto) 0.5 Eos # (Auto) 0.2 Baso # (Auto) 0.1 PT INR APTT Sodium 136 Potassium 4.6 Chloride 98 Carbon Dioxide 26 Anion Gap 16 BUN 20 Creatinine 0.9 Est GFR ( Amer) > 60 Est GFR (Non-Af Amer) > 60 POC Glucose (mg/dL) 132 H Random Glucose 131 H Calcium 9.3 Total Bilirubin 0.8 AST 49 ALT 70 Alkaline Phosphatase 89 Total Protein 7.5 Albumin 4.2 Globulin 3.2 Albumin/Globulin Ratio 1.3 05/19/18 08:33 WBC RBC Hgb Hct MCV MCH MCHC RDW Plt Count MPV Neut % (Auto) Lymph % (Auto) [place] % (Auto) Eos % (Auto) Baso % (Auto) Neut # (Auto) Lymph # (Auto) [place] # (Auto) Eos # (Auto) Baso # (Auto) PT 11.7 INR 1.1 APTT 39 H Sodium Potassium Chloride Carbon Dioxide Anion Gap BUN Creatinine Est GFR ( Amer) Est GFR (Non-Af Amer) POC Glucose (mg/dL) Random Glucose Calcium Total Bilirubin AST ALT Alkaline Phosphatase Total Protein Albumin Globulin Albumin/Globulin Ratio Attending/Attestation - Attestation I have personally seen and examined this patient.: Yes I have fully participated in the care of the patient.: Yes I have reviewed all pertinent clinical information: Yes
[2018-05-18] MEDS: Metoprolol Succinate 12.5 mg XL Tab PO SCH (10:08)
--- NOTE | 2018-05-18 15:01 | CARD ---
APPROVED REPORT Date of service: 05/16/2018 EKG Measurement Heart [id number] 138P26 [id number] <Conclusion> Normal sinus rhythm Normal ECG
--- NOTE | 2018-05-18 15:02 | CARD ---
APPROVED REPORT Date of service: 05/16/2018 EKG Measurement Heart [id number] [place] 140P25 [id number] <Conclusion> Normal sinus rhythm Normal ECG
--- NOTE | 2018-05-18 15:03 | CARD ---
APPROVED REPORT Date of service: 05/16/2018 EKG Measurement Heart [id number] [place] 140P44 [id number] <Conclusion> Normal sinus rhythm Nonspecific T wave abnormality Abnormal ECG
--- NOTE | 2018-05-18 15:07 | CARD ---
APPROVED REPORT Date of service: 05/16/2018 EKG Measurement Heart [id number] [place] 140P46 [id number] <Conclusion> Normal sinus rhythm Normal ECG
--- NOTE | 2018-05-18 15:07 | CARD ---
APPROVED REPORT Date of service: 05/16/2018 EKG Measurement Heart [id number] 138P52 [id number] <Conclusion> Normal sinus rhythm Normal ECG
[2018-05-18] MEDS ORDERED: Midazolam 2 MG/2 ML VIAL ONE (15:35)
[2018-05-18] MEDS ORDERED: Iodixanol 320 MG/ML 100 ML BOTTLE IV ONE (15:36)
[2018-05-18] MEDS ORDERED: Verapamil 0 ML ONE (15:37)
[2018-05-18] MEDS ORDERED: Verapamil 2 ML ONE (15:49)
[2018-05-18] MEDS ORDERED: Nitroglycerin 50mg in D5W 50 MG/250 ML BOTTLE IV ONE (15:49)
--- NOTE | 2018-05-18 17:41 | CARD ---
APPROVED REPORT Date of service: 05/18/2018 EXAM: Two-dimensional and M-mode echocardiogram with Doppler and color Doppler. Other Information Quality : GoodRhythm : INDICATION Chest Pain RISK FACTORS Hypertension Hyperlipidemia 2D DIMENSIONS IVSd1.2 (0.7-1.1cm)Aortic Root (2D)2.7 (2.0-3.7cm) LVDd4.1 (3.9-5.9cm)PWd1.2 (0.7-1.1cm) LA [id number] (18-58mL)LVDs2.9 (2.5-4.0cm) FS (%) 28.8 %LVEF (%)70.0 (>50%) LVEF (Bui's)77.85 %IVC0.00 cm M-Mode DIMENSIONS RVDd2.22 (2.1-3.2cm)Left Atrium (MM)2.92 (2.5-4.0cm) IVSd1.25 (0.7-1.1cm)Aortic Root2.90 (2.2-3.7cm) LVDd3.40 (4.0-5.6cm)Aortic Cusp Exc.1.86 (1.5-2.0cm) PWd1.25 (0.7-1.1cm)FS (%) 32 % LVDs2.31 (2.0-3.8cm)LVEF (%)61 (>50%) Mitral Valve MV E Lyoaojuz44.1cm/sMV A Eckirzkc04.8cm/sE/A ratio1.3 TDI Lateral E' Peak V11.64cm/sMedial E' Peak V6.67cm/sE/Lateral E'7.2 E/Medial E'12.6 Tricuspid Valve TR Peak [id number]/sTR Peak Gr.58wnAoABPS54cxLf LEFT VENTRICLE The left ventricle is normal size. There is normal left ventricular wall thickness. The left ventricular function is normal. The left ventricular ejection fraction is within the normal range. 78% No regional wall motion abnormalities noted. The left ventricular diastolic function is normal. No left ventricle thrombus noted on this study. There is no ventricular septal defect visualized. There is no left ventricular aneurysm. There is no mass noted in the left ventricle. RIGHT VENTRICLE The right ventricle is normal size. There is normal right ventricular wall thickness. The right ventricular systolic function is normal. ATRIA The left atrium size is normal. The right atrium size is normal. The interatrial septum is intact with no evidence for an atrial septal defect. AORTIC VALVE The aortic valve is normal in structure and function. No aortic regurgitation is present. There is no aortic valvular stenosis. There is no aortic valvular vegetation. MITRAL VALVE The mitral valve is normal in structure and function. There is no evidence of mitral valve prolapse. There is no mitral valve stenosis. There is mild mitral valve regurgitation noted. TRICUSPID VALVE The tricuspid valve is normal in structure and function. There is mild tricuspid valve regurgitation noted. There is no tricuspid valve prolapse or vegetation. There is no tricuspid valve stenosis. PULMONIC VALVE The pulmonary valve is normal in structure and function. There is no pulmonic valvular regurgitation. There is no pulmonic valvular stenosis. GREAT VESSELS The aortic root is normal in size. The ascending aorta is normal in size. The pulmonary artery is normal. The IVC is normal in size and collapses >50% with inspiration. PERICARDIAL EFFUSION The pericardium appears normal. There is no pleural effusion. <Conclusion> Normal left ventricular systolic function and normal doppler.
--- NOTE | 2018-05-19 04:29 | CARDCATH ---
PROCEDURE DATE: 05/18/2018 INDICATIONS: Steven Valero patient is 48-year-old male, who presented to [facility] with nonST-elevation NH. The patient was ruled in for acute coronary syndrome, underwent a left heart catheterization via right radial approach. PROCEDURE PERFORMED: Left heart catheterization with selective left and right coronary angiogram via right radial approach, 6-[place] right radial arterial access, left ventriculogram, and wrist band for hemostasis. ANGIOGRAPHIC FINDINGS: Left main is large-sized vessel and bifurcates into LAD and circ. LAD has a proximal two tandem lesions, 75% to 85% stenosis, it gives off two medium-sized diagonal branches. Left circumflex is a large-sized vessel, runs in the AV groove. The mid left circumflex has a 65% stenosis, gives off a large-sized obtuse marginal branch, left dominant circulation. LVEF 65%. Normal EF with EDP of 18. IMPRESSION: Two-vessel coronary artery disease. Normal ejection fraction. RECOMMENDATIONS: The patient is to be transferred to [place] for staged PCI of LAD and possible plus/minus circ based on FFR evaluation. Guideline-directed therapy for CAD. Continue the patient on dual-antiplatelet therapy. Start with beta-blockers, nitrates, plus/minus MARILEE inhibitor. Rajan Lin MD
--- NOTE | 2018-05-19 07:12 | CP.PCM.PN ---
Objective - Vital Signs/Intake and Output Vital Signs (last 24 hours): Temp Pulse Resp BP Pulse Ox 97.7 F 68 20 107/67 98 05/18/18 23:25 05/18/18 23:25 05/18/18 23:25 05/18/18 23:25 05/18/18 23:25 - Medications Medications: Current Medications Aspirin (Ecotrin) 81 mg PO DAILY [facility] Last Admin: 05/18/18 10:08 Dose: 81 mg Dextrose (Dextrose 50% Inj) 0 ml IV STAT PRN; Protocol PRN Reason: Hypoglycemia Protocol Dextrose (Glutose 15) 0 gm PO ONCE PRN; Protocol PRN Reason: Hypoglycemia Protocol Ezetimibe (Zetia) 10 mg PO DAILY [facility] Last Admin: 05/18/18 14:36 Dose: Not Given Enalapril Maleate (Vasotec) 20 mg PO DAILY [facility] Last Admin: 05/18/18 10:07 Dose: 20 mg Enoxaparin Sodium (Lovenox) 60 mg SC Q12H [facility] Last Admin: 05/17/18 14:33 Dose: 60 mg Glucagon (Glucagen Diagnostic Kit) 0 mg IM STAT PRN; Protocol PRN Reason: Hypoglycemia Protocol Dextrose (Dextrose 5% In Water 1000 Ml) 1,000 mls @ 0 mls/hr IV .Q0M PRN; Protocol PRN Reason: Hypoglycemia Protocol Influenza Virus Vaccine (Fluzone Quad [id number]) 60 mcg IM .ONCE ONE Stop: 05/19/18 10:01 Insulin Aspart (Novolog) 0 unit SC [facility]; Protocol Last Admin: 05/18/18 18:27 Dose: Not Given Metoprolol Succinate (Toprol Xl) 12.5 mg PO DAILY [facility] Last Admin: 05/18/18 10:08 Dose: 12.5 mg Nitroglycerin (Nitrostat Sl Tab) 0.4 mg SL Q5M PRN PRN Reason: Pain, severe (8-10) Last Admin: 05/17/18 21:54 Dose: 0.4 mg Pneumococcal Polyvalent Vaccine (Pneumovax 23 Vaccine) 0.5 ml IM .ONCE ONE Stop: 05/19/18 10:01 Rosuvastatin Calcium (Crestor) 40 mg PO HS [facility] Last Admin: 05/18/18 21:31 Dose: 40 mg - Labs Labs: 05/18/18 07:35 05/18/18 07:35 PT 11.1 SECONDS (9.7-12.2) 05/16/18 09:11 INR 1.0 05/16/18 09:11 APTT 42 SECONDS (21-34) H 05/16/18 09:11
[2018-05-19] MEDS: (Novolog) Insulin Aspart, Recombinant 100 u/ml 10 ml vial SC SCH ×2 (07:41→11:26)
[2018-05-19 08:47] LABS: BASO # 0.1 K/uL (0.0-0.2); BASO % 0.7 % (0.0-2.0); EOS # 0.2 K/uL (0.0-0.7); EOS % 2.5 % (0.0-4.0); HEMOGLOBIN 14.6 g/dL (12.0-18.0); LYMPH # 2.1 K/uL (1.0-4.3); LYMPH % 26.2 % (20.0-40.0); MEAN CELL VOLUME 87.5 fL (80.0-94.0); MEAN CORPUSCULAR HEMOGLOBIN 30.5 pg (27.0-31.0); MEAN CORPUSCULAR HGB CONC 34.9 g/dL (33.0-37.0); MEAN PLATELET VOLUME 7.4 fL (7.2-11.7); MONO # 0.5 K/uL (0.0-0.8); MONO % 6.3 % (0.0-10.0); NEUT % 64.3 % (50.0-75.0); RBC 4.79 Mil/uL (4.40-5.90); RED CELL DISTRIBUTION WIDTH 13.6 % (11.5-14.5); WHITE BLOOD COUNT 7.8 K/uL (4.8-10.8)
[2018-05-19 08:56] LABS: INR 1.1; PROTHROMBIN TIME 11.7 SECONDS (9.7-12.2)
[2018-05-19 09:02] LABS: ALB/GLOB RATIO 1.3 (1.0-2.1); ALBUMIN 4.2 g/dL (3.5-5.0); ALT/SGPT 70 U/L (21-72); AST/SGOT 49 U/L (17-59); BLOOD UREA NITROGEN 20 mg/dL (9-20); CALCIUM 9.3 mg/dl (8.6-10.4); GFR NON-AFRICAN AMERICAN > 60
[2018-05-19] MEDS: Metoprolol Succinate 12.5 mg XL Tab PO SCH (09:16)
[2018-05-19] MEDS ORDERED: Pneumococcal 23-Valent Vaccine IM ONE (10:00)
[2018-05-19] MEDS ORDERED: Influenza Vaccine 60 MCG/0.5 ML SYR (3 yr & up) IM ONE (10:00)
[2018-05-19 10:13] VITALS: BP 138/67; PULSE 72; TEMP 97.9; O2SAT 99
--- NOTE | 2018-05-19 12:21 | CP.PCM.PN ---
<Ankur Daniels - Last Filed: 05/19/18 14:18> Subjective - Date & Time of Evaluation Date of Evaluation: 05/19/18 Time of Evaluation: 12:00 - Subjective Subjective: Ankur Daniels DO, PGY-1 Cardiology Progress Note for Dr. Lin Patient was seen and examined at bedside this AM at [facility] prior to cardiac cath. He offers no new complaints and states he feels well this AM. He has not had worsening CP, SOB, diaphoresis, nausea or vomiting. Objective - Vital Signs/Intake and Output Vital Signs (last 24 hours): Temp Pulse Resp BP Pulse Ox 97.9 F 72 20 138/67 99 05/19/18 10:13 05/19/18 10:13 05/19/18 10:13 05/19/18 10:13 05/19/18 10:13 - Medications Medications: Current Medications Aspirin (Ecotrin) 81 mg PO DAILY [facility] Last Admin: 05/19/18 09:16 Dose: 81 mg Dextrose (Dextrose 50% Inj) 0 ml IV STAT PRN; Protocol PRN Reason: Hypoglycemia Protocol Dextrose (Glutose 15) 0 gm PO ONCE PRN; Protocol PRN Reason: Hypoglycemia Protocol Ezetimibe (Zetia) 10 mg PO DAILY [facility] Last Admin: 05/19/18 09:18 Dose: Not Given Enalapril Maleate (Vasotec) 20 mg PO DAILY [facility] Last Admin: 05/19/18 09:16 Dose: 20 mg Enoxaparin Sodium (Lovenox) 60 mg SC Q12H [facility] Last Admin: 05/17/18 14:33 Dose: 60 mg Glucagon (Glucagen Diagnostic Kit) 0 mg IM STAT PRN; Protocol PRN Reason: Hypoglycemia Protocol Dextrose (Dextrose 5% In Water 1000 Ml) 1,000 mls @ 0 mls/hr IV .Q0M PRN; Protocol PRN Reason: Hypoglycemia Protocol Influenza Virus Vaccine (Fluzone Quad [id number]) 60 mcg IM .ONCE ONE Stop: 05/20/18 10:01 Insulin Aspart (Novolog) 0 unit SC ACHS [facility]; Protocol Last Admin: 05/19/18 11:26 Dose: Not Given Metoprolol Succinate (Toprol Xl) 12.5 mg PO DAILY [facility] Last Admin: 05/19/18 09:16 Dose: 12.5 mg Nitroglycerin (Nitrostat Sl Tab) 0.4 mg SL Q5M PRN PRN Reason: Pain, severe (8-10) Last Admin: 05/17/18 21:54 Dose: 0.4 mg Pneumococcal Polyvalent Vaccine (Pneumovax 23 Vaccine) 0.5 ml IM .ONCE ONE Stop: 05/20/18 10:01 Rosuvastatin Calcium (Crestor) 40 mg PO HS [facility] Last Admin: 05/18/18 21:31 Dose: 40 mg - Labs Labs: 05/19/18 08:33 05/19/18 08:33 PT 11.7 SECONDS (9.7-12.2) 05/19/18 08:33 INR 1.1 05/19/18 08:33 APTT 39 SECONDS (21-34) H 05/19/18 08:33 - Constitutional Appears: Non-toxic, No Acute Distress - Head Exam Head Exam: ATRAUMATIC, NORMOCEPHALIC - Eye Exam Eye Exam: EOMI, Normal appearance, PERRL - ENT Exam ENT Exam: Mucous Membranes Moist - Neck Exam Neck Exam: Full ROM, Normal Inspection - Respiratory Exam Respiratory Exam: Clear to Ausculation Bilateral, NORMAL BREATHING PATTERN. absent: Rales, Rhonchi, Wheezes - Cardiovascular Exam Cardiovascular Exam: REGULAR RHYTHM, RRR, +S1, +S2. absent: Gallop, Rubs, Murmur - GI/Abdominal Exam GI & Abdominal Exam: Soft. absent: Guarding, Tenderness - Extremities Exam Extremities Exam: Full ROM, Normal Inspection. absent: Pedal Edema - Back Exam Back Exam: Full ROM, NORMAL INSPECTION - Neurological Exam Neurological Exam: Alert, Awake, Oriented x3 - Psychiatric Exam Psychiatric exam: Normal Affect, Normal Mood - Skin Skin Exam: Dry, Intact, Warm Assessment and Plan - Assessment and Plan (Free Text) Assessment: 48 yo M with PMH of HTN, HLD, Meckel's diverticulum and enteritis presented to ED with chest pain found to have NSTEMI. Chest pain has resolved since admission but cardiac cath with stenting is planned for this AM at [facility]. Plan: NSTEMI -L heart cath yesterday afternoon found clinically significant stenosis -Will proceed with PTCA of LAD and LCX this AM at [facility] -October d/c lovenox -Plan on discharge after PTCA at [facility], see discharge summary at [facility] for further details -Home medications will include Toprol XL 25 mg daily, Crestor 40 mg daily, Zetia 10 mg daily, vascepa 2 g BID, ASA 81 mg daily, plavix 75 mg daily Hx HTN -Continue enalapril, metoprolol succinate Hx HLD -Continue high intensity statin therapy with crestor 40 mg daily Case and plan were reviewed and discussed with my attending Dr. Riley Daniels, DO IM Resident PGY-1 <Rajan Lin - Last Filed: 05/19/18 16:04> Objective - Vital Signs/Intake and Output Vital Signs (last 24 hours): Temp Pulse Resp BP Pulse Ox 97.9 F 72 20 138/67 99 05/19/18 10:13 05/19/18 10:13 05/19/18 10:13 05/19/18 10:13 05/19/18 10:13 - Medications Medications: Current Medications Aspirin (Ecotrin) 81 mg PO DAILY [facility] Last Admin: 05/19/18 09:16 Dose: 81 mg Dextrose (Dextrose 50% Inj) 0 ml IV STAT PRN; Protocol PRN Reason: Hypoglycemia Protocol Dextrose (Glutose 15) 0 gm PO ONCE PRN; Protocol PRN Reason: Hypoglycemia Protocol Ezetimibe (Zetia) 10 mg PO DAILY [facility] Last Admin: 05/19/18 09:18 Dose: Not Given Enalapril Maleate (Vasotec) 20 mg PO DAILY [facility] Last Admin: 05/19/18 09:16 Dose: 20 mg Enoxaparin Sodium (Lovenox) 60 mg SC Q12H [facility] Last Admin: 05/17/18 14:33 Dose: 60 mg Glucagon (Glucagen Diagnostic Kit) 0 mg IM STAT PRN; Protocol PRN Reason: Hypoglycemia Protocol Dextrose (Dextrose 5% In Water 1000 Ml) 1,000 mls @ 0 mls/hr IV .Q0M PRN; Protocol PRN Reason: Hypoglycemia Protocol Influenza Virus Vaccine (Fluzone Quad [id number]) 60 mcg IM .ONCE ONE Stop: 05/20/18 10:01 Insulin Aspart (Novolog) 0 unit SC ACHS [facility]; Protocol Last Admin: 05/19/18 11:26 Dose: Not Given Metoprolol Succinate (Toprol Xl) 12.5 mg PO DAILY [facility] Last Admin: 05/19/18 09:16 Dose: 12.5 mg Nitroglycerin (Nitrostat Sl Tab) 0.4 mg SL Q5M PRN PRN Reason: Pain, severe (8-10) Last Admin: 05/17/18 21:54 Dose: 0.4 mg Pneumococcal Polyvalent Vaccine (Pneumovax 23 Vaccine) 0.5 ml IM .ONCE ONE Stop: 05/20/18 10:01 Rosuvastatin Calcium (Crestor) 40 mg PO HS [facility] Last Admin: 05/18/18 21:31 Dose: 40 mg - Labs Labs: 05/19/18 08:33 05/19/18 08:33 PT 11.7 SECONDS (9.7-12.2) 05/19/18 08:33 INR 1.1 05/19/18 08:33 APTT 39 SECONDS (21-34) H 05/19/18 08:33 Attending/Attestation - Attestation I have personally seen and examined this patient.: Yes I have fully participated in the care of the patient.: Yes I have reviewed all pertinent clinical information, including history, physical exam and plan: Yes
--- NOTE | 2018-05-19 14:54 | CARD ---
APPROVED REPORT Date of service: 05/17/2018 EKG Measurement Heart [id number] <Conclusion> Normal sinus rhythm Nonspecific ST and T wave abnormality Abnormal ECG
--- NOTE | 2018-05-19 15:56 | CP.PCM.DIS ---
<Neal Hernandez M - Last Filed: 05/19/18 16:03> Provider - Provider Date of Admission: 05/18/18 08:30 Attending physician: Misha Herzog MD Primary care physician: Dr. Scott Consults: 05/16/18 11:26 Cardiology Consult Routine Comment: Consulting Provider: Rajan Lin Consulting Physician: Rajan Lin Reason for Consult: chest pain, fhx of cardiac Time Spent in preparation of Discharge (in minutes): 40 Diagnosis - Discharge Diagnosis (1) NSTEMI (non-ST elevated myocardial infarction) Status: Resolved Comment: Cardiac cath, 75-85% stenosis in LAD & 65-75% of mid L circumflex, transfered to [facility] for stenting (2) Unstable angina Status: Resolved Comment: Cardiac cath, 75-85% stenosis in LAD & 65-75% of mid L circumflex, transfered to [facility] for stenting Hospital Course - Lab Results Lab Results: Most Recent Lab Values WBC 7.8 K/uL (4.8-10.8) 05/19/18 08:33 RBC 4.79 Mil/uL (4.40-5.90) 05/19/18 08:33 Hgb 14.6 g/dL (12.0-18.0) 05/19/18 08:33 Hct 41.9 % (35.0-51.0) 05/19/18 08:33 MCV 87.5 fL (80.0-94.0) 05/19/18 08:33 MCH 30.5 pg (27.0-31.0) 05/19/18 08:33 MCHC 34.9 g/dL (33.0-37.0) 05/19/18 08:33 RDW 13.6 % (11.5-14.5) 05/19/18 08:33 Plt Count 367 K/uL (130-400) 05/19/18 08:33 MPV 7.4 fL (7.2-11.7) 05/19/18 08:33 Neut % (Auto) 64.3 % (50.0-75.0) 05/19/18 08:33 Lymph % (Auto) 26.2 % (20.0-40.0) 05/19/18 08:33 [place] % (Auto) 6.3 % (0.0-10.0) 05/19/18 08:33 Eos % (Auto) 2.5 % (0.0-4.0) 05/19/18 08:33 Baso % (Auto) 0.7 % (0.0-2.0) 05/19/18 08:33 Neut # (Auto) 5.0 K/uL (1.8-7.0) 05/19/18 08:33 Lymph # (Auto) 2.1 K/uL (1.0-4.3) 05/19/18 08:33 [place] # (Auto) 0.5 K/uL (0.0-0.8) 05/19/18 08:33 Eos # (Auto) 0.2 K/uL (0.0-0.7) 05/19/18 08:33 Baso # (Auto) 0.1 K/uL (0.0-0.2) 05/19/18 08:33 PT 11.7 SECONDS (9.7-12.2) 05/19/18 08:33 INR 1.1 05/19/18 08:33 APTT 39 SECONDS (21-34) H 05/19/18 08:33 Sodium 136 mmol/L (132-148) 05/19/18 08:33 Potassium 4.6 mmol/L (3.6-5.2) 05/19/18 08:33 Chloride 98 mmol/L (98-107) 05/19/18 08:33 Carbon Dioxide 26 mmol/L (22-30) 05/19/18 08:33 Anion Gap 16 (10-20) 05/19/18 08:33 BUN 20 mg/dL (9-20) 05/19/18 08:33 Creatinine 0.9 mg/dL (0.8-1.5) 05/19/18 08:33 Est GFR ( Amer) > 60 05/19/18 08:33 Est GFR (Non-Af Amer) > 60 05/19/18 08:33 POC Glucose (mg/dL) 132 mg/dL (65-110) H 05/19/18 06:27 Random Glucose 131 mg/dL (75-110) H 05/19/18 08:33 Hemoglobin A1c 6.3 % (4.2-6.5) 05/16/18 09:11 Calcium 9.3 mg/dl (8.6-10.4) 05/19/18 08:33 Total Bilirubin 0.8 mg/dL (0.2-1.3) 05/19/18 08:33 AST 49 U/L (17-59) 05/19/18 08:33 ALT 70 U/L (21-72) 05/19/18 08:33 Alkaline Phosphatase 89 U/L (38-126) 05/19/18 08:33 Total Creatine Kinase 186 U/L (55-170) H 05/17/18 02:10 CK-MB (Mass) 11.0 ng/mL (0.0-3.38) H 05/17/18 02:10 Troponin I 2.2600 ng/mL (0.00-0.120) H* 05/17/18 02:10 NT-Pro-B Natriuret Pep < 11.1 pg/mL (0-450) 05/16/18 09:11 Total Protein 7.5 g/dL (6.3-8.3) 05/19/18 08:33 Albumin 4.2 g/dL (3.5-5.0) 05/19/18 08:33 Globulin 3.2 gm/dL (2.2-3.9) 05/19/18 08:33 Albumin/Globulin Ratio 1.3 (1.0-2.1) 05/19/18 08:33 Triglycerides 640 mg/dL (0-149) H D 05/17/18 07:24 Cholesterol 164 mg/dL (0-199) 05/17/18 07:24 LDL Cholesterol Direct 86 mg/dL (0-129) 05/17/18 07:24 HDL Cholesterol 23 mg/dL (30-70) L 05/17/18 07:24 Free T4 0.91 ng/dL (0.78-2.19) 05/17/18 07:24 TSH 3rd Generation 1.77 mIU/L (0.46-4.68) 05/17/18 07:24 - Hospital Course Hospital Course: 48 M w/ PMhx: of hypertension, hyperlipidemia, prediabetes, meckel's diverticulum s/p ex lap with partial small bowel resection and simultaneous appendectomy, enteritis, presents to ED for chest pain. Pt states the chest pain began this morning as a pressure like sensation 7/10 with radiation to the L axilla. Pt had chills & nausea at the time. Pt denies SOB associated with symptoms. Pt denies recent travel, abdominal pain, headaches, vision changes, dysuria, hematuria, numbness/tinging/pain in all 4 extremities. Pt does state had flu like symptoms 2 weeks prior that was treated w/ OTC symptoms. During course patient had an initial rise in troponins to 3.5, along with nonspecific st and t wave abnormality (no ST elevation). Trops trended down to 2.5. Patient had cardiac cah showing 75-85% stenosis of LAD & 65-75 % stenosis of mid left circumflex. Patient received theraputic lovenox, high intensity started on crestor 40 from crestor 5mg daily. Continued with home medication of aspirin 81, and enalipril 20 mg PO daily, metoprolol succinate 12.5 mg PO daily. hgA1c was increased to 6.3 from previously 5.9 (in March,). Patient was transferred to [facility] for stenting. Patient was stable upon transfer. Patient was originally going to be transferred back to [facility] following stenting, but per Cardiology team, they will discharge from [facility]. Discharge Exam - Head Exam Head Exam: ATRAUMATIC, NORMOCEPHALIC - Eye Exam Eye Exam: EOMI, Normal appearance - ENT Exam ENT Exam: Mucous Membranes Moist - Neck Exam Neck exam: Full Rom - Respiratory Exam Respiratory Exam: Clear to PA & Lateral. absent: Decreased Breath Sounds, Respiratory Distress - Cardiovascular Exam Cardiovascular Exam: +S1, +S2. absent: Systolic Murmur - GI/Abdominal Exam GI & Abdominal Exam: Normal Bowel Sounds, Soft - Extremities Exam Extremities exam: full ROM Additional comments: no pedal edema, no calf tenderness - Back Exam Back exam: absent: CVA tenderness (L), CVA tenderness (R) - Neurological Exam Neurological exam: Alert, Oriented x3 - Psychiatric Exam Psychiatric exam: Normal Affect, Normal Mood - Skin Skin Exam: Dry, Intact, Normal Color, Warm Discharge Plan - Follow Up Plan Condition: GUARDED Disposition: HOME/ ROUTINE Instructions: Heart Healthy Diet, Angina (DC) Referrals: Rajan Lin MD [Staff Provider] - <Misha Herzog - Last Filed: 06/02/18 10:57> Provider - Provider Date of Admission: 05/18/18 08:30 Attending physician: Misha Herzog MD Consults: 05/16/18 11:26 Cardiology Consult Routine Comment: Consulting Provider: Rajan Lin Consulting Physician: Rajan Lin Reason for Consult: chest pain, fhx of cardiac Hospital Course - Lab Results Lab Results: Most Recent Lab Values WBC 7.8 K/uL (4.8-10.8) 05/19/18 08:33 RBC 4.79 Mil/uL (4.40-5.90) 05/19/18 08:33 Hgb 14.6 g/dL (12.0-18.0) 05/19/18 08:33 Hct 41.9 % (35.0-51.0) 05/19/18 08:33 MCV 87.5 fL (80.0-94.0) 05/19/18 08:33 MCH 30.5 pg (27.0-31.0) 05/19/18 08:33 MCHC 34.9 g/dL (33.0-37.0) 05/19/18 08:33 RDW 13.6 % (11.5-14.5) 05/19/18 08:33 Plt Count 367 K/uL (130-400) 05/19/18 08:33 MPV 7.4 fL (7.2-11.7) 05/19/18 08:33 Neut % (Auto) 64.3 % (50.0-75.0) 05/19/18 08:33 Lymph % (Auto) 26.2 % (20.0-40.0) 05/19/18 08:33 [place] % (Auto) 6.3 % (0.0-10.0) 05/19/18 08:33 Eos % (Auto) 2.5 % (0.0-4.0) 05/19/18 08:33 Baso % (Auto) 0.7 % (0.0-2.0) 05/19/18 08:33 Neut # (Auto) 5.0 K/uL (1.8-7.0) 05/19/18 08:33 Lymph # (Auto) 2.1 K/uL (1.0-4.3) 05/19/18 08:33 [place] # (Auto) 0.5 K/uL (0.0-0.8) 05/19/18 08:33 Eos # (Auto) 0.2 K/uL (0.0-0.7) 05/19/18 08:33 Baso # (Auto) 0.1 K/uL (0.0-0.2) 05/19/18 08:33 PT 11.7 SECONDS (9.7-12.2) 05/19/18 08:33 INR 1.1 05/19/18 08:33 APTT 39 SECONDS (21-34) H 05/19/18 08:33 Sodium 136 mmol/L (132-148) 05/19/18 08:33 Potassium 4.6 mmol/L (3.6-5.2) 05/19/18 08:33 Chloride 98 mmol/L (98-107) 05/19/18 08:33 Carbon Dioxide 26 mmol/L (22-30) 05/19/18 08:33 Anion Gap 16 (10-20) 05/19/18 08:33 BUN 20 mg/dL (9-20) 05/19/18 08:33 Creatinine 0.9 mg/dL (0.8-1.5) 05/19/18 08:33 Est GFR ( Amer) > 60 05/19/18 08:33 Est GFR (Non-Af Amer) > 60 05/19/18 08:33 POC Glucose (mg/dL) 132 mg/dL (65-110) H 05/19/18 06:27 Random Glucose 131 mg/dL (75-110) H 05/19/18 08:33 Hemoglobin A1c 6.3 % (4.2-6.5) 05/16/18 09:11 Calcium 9.3 mg/dl (8.6-10.4) 05/19/18 08:33 Total Bilirubin 0.8 mg/dL (0.2-1.3) 05/19/18 08:33 AST 49 U/L (17-59) 05/19/18 08:33 ALT 70 U/L (21-72) 05/19/18 08:33 Alkaline Phosphatase 89 U/L (38-126) 05/19/18 08:33 Total Creatine Kinase 186 U/L (55-170) H 05/17/18 02:10 CK-MB (Mass) 11.0 ng/mL (0.0-3.38) H 05/17/18 02:10 Troponin I 2.2600 ng/mL (0.00-0.120) H* 05/17/18 02:10 NT-Pro-B Natriuret Pep < 11.1 pg/mL (0-450) 05/16/18 09:11 Total Protein 7.5 g/dL (6.3-8.3) 05/19/18 08:33 Albumin 4.2 g/dL (3.5-5.0) 05/19/18 08:33 Globulin 3.2 gm/dL (2.2-3.9) 05/19/18 08:33 Albumin/Globulin Ratio 1.3 (1.0-2.1) 05/19/18 08:33 Triglycerides 640 mg/dL (0-149) H D 05/17/18 07:24 Cholesterol 164 mg/dL (0-199) 05/17/18 07:24 LDL Cholesterol Direct 86 mg/dL (0-129) 05/17/18 07:24 HDL Cholesterol 23 mg/dL (30-70) L 05/17/18 07:24 Free T4 0.91 ng/dL (0.78-2.19) 05/17/18 07:24 TSH 3rd Generation 1.77 mIU/L (0.46-4.68) 05/17/18 07:24 Attending/Attestation - Attestation I have personally seen and examined this patient.: Yes I have fully participated in the care of the patient.: Yes I have reviewed all pertinent clinical information, including history, physical exam and plan: Yes Notes (Text): 06/02/18 10:57 This is a late entry. Care of this patient was gone over in detail with resident Dr. Hernandez. Misha Herzog D.O.
--- NOTE | 2018-05-19 16:03 | CP.PCM.CON ---
History of Present Illness - History of Present Illness History of Present Illness: Consultation for NSTEMI HPI: Review of Systems - Review of Systems Systems not reviewed;Unavailable: Acuity of Condition - Constitutional Constitutional: As Per HPI - EENT Eyes: As Per HPI Ears: As Per HPI Nose/Mouth/Throat: As Per HPI - Cardiovascular Cardiovascular: As Per HPI - Respiratory Respiratory: As Per HPI - Gastrointestinal Gastrointestinal: As Per HPI - Genitourinary Genitourinary: As Per HPI - Reproductive: Male Reproductive:Male: As Per HPI - Musculoskeletal Musculoskeletal: As Per HPI - Integumentary Integumentary: As Per HPI - Neurological Neurological: As Per HPI - Psychiatric Psychiatric: As Per HPI - Endocrine Endocrine: As Per HPI - Hematologic/Lymphatic Hematologic: As Per HPI Past Patient History - Infectious Disease Hx of Infectious Diseases: None - Past Medical History & Family History Past Medical History?: Yes - Past Social History Smoking Status: Never Smoked - CARDIAC Hx Hypercholesterolemia: Yes Hx Hypertension: Yes - PULMONARY Hx Respiratory Disorders: No - NEUROLOGICAL Hx Neurological Disorder: No - HEENT Hx HEENT Problems: No - RENAL Hx Chronic Kidney Disease: No - ENDOCRINE/METABOLIC Hx Endocrine Disorders: No - HEMATOLOGICAL/ONCOLOGICAL Hx Blood Disorders: No - INTEGUMENTARY Hx Dermatological Problems: No - MUSCULOSKELETAL/RHEUMATOLOGICAL Hx Musculoskeletal Disorders: No Hx Falls: No - GASTROINTESTINAL Hx Gastrointestinal Disorders: Yes Other/Comment: meckels diverticulum - GENITOURINARY/GYNECOLOGICAL Hx Genitourinary Disorders: No - PSYCHIATRIC Hx Substance Use: No - SURGICAL HISTORY Hx Surgeries: Yes Other/Comment: meckels diverticulum - ANESTHESIA Hx Anesthesia: Yes Hx Anesthesia Reactions: No Hx Malignant Hyperthermia: No Meds Allergies/Adverse Reactions: Allergies Allergy/AdvReac Type Severity Reaction Status Date / Time No Known Allergies Allergy Verified 02/16/18 10:06 - Medications Medications: Current Medications Aspirin (Ecotrin) 81 mg PO DAILY [facility] Last Admin: 05/19/18 09:16 Dose: 81 mg Dextrose (Dextrose 50% Inj) 0 ml IV STAT PRN; Protocol PRN Reason: Hypoglycemia Protocol Dextrose (Glutose 15) 0 gm PO ONCE PRN; Protocol PRN Reason: Hypoglycemia Protocol Ezetimibe (Zetia) 10 mg PO DAILY [facility] Last Admin: 05/19/18 09:18 Dose: Not Given Enalapril Maleate (Vasotec) 20 mg PO DAILY [facility] Last Admin: 05/19/18 09:16 Dose: 20 mg Enoxaparin Sodium (Lovenox) 60 mg SC Q12H [facility] Last Admin: 05/17/18 14:33 Dose: 60 mg Glucagon (Glucagen Diagnostic Kit) 0 mg IM STAT PRN; Protocol PRN Reason: Hypoglycemia Protocol Dextrose (Dextrose 5% In Water 1000 Ml) 1,000 mls @ 0 mls/hr IV .Q0M PRN; Protocol PRN Reason: Hypoglycemia Protocol Influenza Virus Vaccine (Fluzone Quad [id number]) 60 mcg IM .ONCE ONE Stop: 05/20/18 10:01 Insulin Aspart (Novolog) 0 unit SC ACHS [facility]; Protocol Last Admin: 05/19/18 11:26 Dose: Not Given Metoprolol Succinate (Toprol Xl) 12.5 mg PO DAILY [facility] Last Admin: 05/19/18 09:16 Dose: 12.5 mg Nitroglycerin (Nitrostat Sl Tab) 0.4 mg SL Q5M PRN PRN Reason: Pain, severe (8-10) Last Admin: 05/17/18 21:54 Dose: 0.4 mg Pneumococcal Polyvalent Vaccine (Pneumovax 23 Vaccine) 0.5 ml IM .ONCE ONE Stop: 05/20/18 10:01 Rosuvastatin Calcium (Crestor) 40 mg PO HS [facility] Last Admin: 05/18/18 21:31 Dose: 40 mg Physical Exam - Constitutional Appears: Well - Head Exam Head Exam: ATRAUMATIC, NORMAL INSPECTION, NORMOCEPHALIC - Eye Exam Eye Exam: EOMI, Normal appearance, PERRL Pupil Exam: NORMAL ACCOMODATION, PERRL - ENT Exam ENT Exam: Mucous Membranes Moist, Normal Exam - Neck Exam Neck exam: Positive for: Normal Inspection - Respiratory Exam Respiratory Exam: Clear to Auscultation Bilateral, NORMAL BREATHING PATTERN - Cardiovascular Exam Cardiovascular Exam: REGULAR RHYTHM - GI/Abdominal Exam GI & Abdominal Exam: Normal Bowel Sounds, Soft. absent: Tenderness - Extremities Exam Extremities exam: Positive for: normal inspection - Back Exam Back exam: NORMAL INSPECTION - Neurological Exam Neurological exam: Alert, CN II-XII Intact, Normal Gait, Oriented x3, Reflexes N ormal - Psychiatric Exam Psychiatric exam: Normal Affect, Normal Mood - Skin Skin Exam: Dry, Intact, Normal Color, Warm Results - Vital Signs Recent Vital Signs: Last Vital Signs Temp 97.9 F 05/19/18 10:13 Pulse 72 05/19/18 10:13 Resp 20 05/19/18 10:13 BP 138/67 05/19/18 10:13 Pulse Ox 99 05/19/18 10:13 - Labs Result Diagrams: 05/19/18 08:33 05/19/18 08:33 Labs: Laboratory Results - last 24 hr 05/18/18 05/18/18 05/19/18 17:53 21:27 02:05 WBC RBC Hgb Hct MCV MCH MCHC RDW Plt Count MPV Neut % (Auto) Lymph % (Auto) Norman % (Auto) Eos % (Auto) Baso % (Auto) Neut # (Auto) Lymph # (Auto) Norman # (Auto) Eos # (Auto) Baso # (Auto) PT INR APTT Sodium Potassium Chloride Carbon Dioxide Anion Gap BUN Creatinine Est GFR ( Amer) Est GFR (Non-Af Amer) POC Glucose (mg/dL) 101 94 117 H Random Glucose Calcium Total Bilirubin AST ALT Alkaline Phosphatase Total Protein Albumin Globulin Albumin/Globulin Ratio 05/19/18 05/19/18 05/19/18 06:27 08:33 08:33 WBC 7.8 RBC 4.79 Hgb 14.6 Hct 41.9 MCV 87.5 MCH 30.5 MCHC 34.9 RDW 13.6 Plt Count 367 MPV 7.4 Neut % (Auto) 64.3 Lymph % (Auto) 26.2 Norman % (Auto) 6.3 Eos % (Auto) 2.5 Baso % (Auto) 0.7 Neut # (Auto) 5.0 Lymph # (Auto) 2.1 Norman # (Auto) 0.5 Eos # (Auto) 0.2 Baso # (Auto) 0.1 PT INR APTT Sodium 136 Potassium 4.6 Chloride 98 Carbon Dioxide 26 Anion Gap 16 BUN 20 Creatinine 0.9 Est GFR ( Amer) > 60 Est GFR (Non-Af Amer) > 60 POC Glucose (mg/dL) 132 H Random Glucose 131 H Calcium 9.3 Total Bilirubin 0.8 AST 49 ALT 70 Alkaline Phosphatase 89 Total Protein 7.5 Albumin 4.2 Globulin 3.2 Albumin/Globulin Ratio 1.3 05/19/18 08:33 WBC RBC Hgb Hct MCV MCH MCHC RDW Plt Count MPV Neut % (Auto) Lymph % (Auto) Norman % (Auto) Eos % (Auto) Baso % (Auto) Neut # (Auto) Lymph # (Auto) Norman # (Auto) Eos # (Auto) Baso # (Auto) PT 11.7 INR 1.1 APTT 39 H Sodium Potassium Chloride Carbon Dioxide Anion Gap BUN Creatinine Est GFR ( Amer) Est GFR (Non-Af Amer) POC Glucose (mg/dL) Random Glucose Calcium Total Bilirubin AST ALT Alkaline Phosphatase Total Protein Albumin Globulin Albumin/Globulin Ratio
[2018-05-20] MEDS ORDERED: Pneumococcal 23-Valent Vaccine IM ONE (10:00)
[2018-05-20] MEDS ORDERED: Influenza Vaccine 60 MCG/0.5 ML SYR (3 yr & up) IM ONE (10:00)
== END 2018-05-19 21:08 | disposition short-term general hospital (02) | DRG 190 ==
LOC: C.ER 08:42 → C.9E 10:21 → C.5S 18:56 → OBSVTOIN 05-18 08:30 → C.5S 05-19 10:18
PROVIDERS: ADMIT Family Medicine; ATTEND Family Medicine
PROC: 4A023N7 Measurement of Cardiac Sampling and Pressure, Left Heart, Percutaneous Approach (ICD-10-PCS; principal; 2018-05-18)
PROC: B2111ZZ Fluoroscopy of Multiple Coronary Arteries using Low Osmolar Contrast (ICD-10-PCS; 2018-05-18)
PROC: B2151ZZ Fluoroscopy of Left Heart using Low Osmolar Contrast (ICD-10-PCS; 2018-05-18)
DX: I21.4 Non-ST elevation (NSTEMI) myocardial infarction (principal); I10 Essential (primary) hypertension; E78.5 Hyperlipidemia, unspecified; I25.110 Atherosclerotic heart disease of native coronary artery with unstable angina pectoris; R73.03 Prediabetes; K52.9 Noninfective gastroenteritis and colitis, unspecified

== ENCOUNTER 2018-06-18 11:37 | Emergency (ER) | payer OTHER ==
[2018-06-18 11:52] VITALS: BP 120/77; PULSE 66; RESP 18; TEMP 97.7; O2SAT 100
--- NOTE | 2018-06-18 12:10 | C.PDOC ---
History Of Present Illness 48 y/o male with PMH of HTN, CAD, NSTEMI (s/p stenting 05/2018) presents with c/o lesion on right mid back x 1 month. States that the area occasionally becomes erythematous and that his attempted to squeeze it earlier this week and expressed a small amount of yellow drainage. He has had lesions like this in the past, which have been treated once with with I&D and once with antibiotics. No recent travel. 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 No PMD. Denies fevers, chills, numbness, paresthesias, or any other associated complaints. Chief Complaint (Nursing): Abnormal Skin Integrity Past Medical History Vital Signs: Last Vital Signs Temp 97.7 F 06/18/18 11:51 Pulse 66 06/18/18 11:51 Resp 18 06/18/18 11:51 BP 120/77 06/18/18 11:51 Pulse Ox 100 06/18/18 11:51 - Medical History PMH: HTN, Hypercholesterolemia, Pneumonia Denies: Chronic Kidney Disease Surgical History: Appendectomy - [facility] Procedures FLUOROSCOPY OF LEFT HEART USING LOW OSMOLAR CONTRAST (05/18/18) FLUOROSCOPY OF MULT COR ART USING L OSM CONTRAST (05/18/18) MEASURE OF CARDIAC SAMPL & PRESSURE, L HEART, PERC APPROACH (05/18/18) Family History: States: [place] (father and brother) - Social History Hx Alcohol Use: Yes (occassionally) Hx Substance Use: No - Immunization History Hx Tetanus Toxoid Vaccination: No Hx Influenza Vaccination: No Hx Pneumococcal Vaccination: No Review Of Systems Except As Marked, All Systems Reviewed And Found Negative. Constitutional: Negative for: Fever, Chills Eyes: Negative for: Vision Change ENT: Negative for: Nose Congestion Cardiovascular: Negative for: Chest Pain, Palpitations Respiratory: Negative for: Cough, Shortness of Breath Gastrointestinal: Negative for: Nausea, Vomiting, Abdominal Pain Musculoskeletal: Negative for: Neck Pain Skin: Positive for: Other (area of redness and induration right mid back). Negative for: Rash Neurological: Negative for: Weakness, Numbness, Headache, Dizziness Physical Exam - Physical Exam Appears: Well, Non-toxic, No Acute Distress Skin: Normal Color, Warm, Dry Eye(s): bilateral: Normal Inspection, PERRL, EOMI Nose: Normal Throat: Normal Neck: Normal, Normal ROM, Supple Cardiovascular: Rhythm Regular Respiratory: Normal Breath Sounds Gastrointestinal/Abdominal: Soft, No Tenderness Back: No CVA Tenderness, No Vertebral Tenderness, No Decreased ROM, No Paraspinal Tenderness, Other ([id number] area of mild erythema and induration on right thoracic back with small central scabbed opening; no streaking, no fluctuance) Extremity: Normal ROM ED Course And Treatment O2 Sat by Pulse Oximetry: 100 Medical Decision Making Medical Decision Making: Will advise for hot compresses and bactrim. Advised followup with PMD within 2 days, patient agrees. Diagnostic testing results and plan of care discussed with patient. Strict instructions given regarding prescription use, importance of followup, and signs/symptoms to return to ER including signs of infection, fevers, chills, worsening pain, or any other new/worsening symptoms. Pt verbalized understanding of discussion. Patient is A&Ox3, ambulating with steady gait, with vital signs stable for discharge. Disposition - Disposition Referrals: [facility] at [facility] [place] [Outside] Disposition: HOME/ ROUTINE Disposition Time: 12:10 Condition: GOOD Additional Instructions: Warm compresses 10-20minutes 4-5 times daily Bactrim every 12 hours for 7 days Antibiotic cream daily and cover Followup with primary doctor within 2 days Return to ER with any new/worsening symptoms Prescriptions: Bacitracin Ointment [Bacitracin] 1 appl TOP DAILY #1 tube Sulfamethoxazole/Trimethoprim [Bactrim DS 800 mg-160 mg] 1 tab PO Q12H 7 Days #14 tab Instructions: Boil (DC) Forms: General Discharge Instructions, [facility] ([place]), Work Excuse - Clinical Impression Clinical Impression: Furuncle
== END 2018-06-18 12:19 | disposition home or self-care (01) ==
LOC: C.ER 11:37
DX: L02.222 Furuncle of back [any part, except buttock and flank] (principal)